=== PATIENT | male | born 1955 | race Caucasian/White ===

== ENCOUNTER 2016-12-11 11:04 | Inpatient (IN) | payer OTHER, MEDICAID ==
[~2016-12-11] VITALS: Ht 185.4 cm; Wt 132.8 kg
[~2016-12-11 11:04] MED LIST: ACET325C PO; AZU500 PO; GABA-504 PO; MAGN250T29 PO; METH16TA2 PO; MYCO500T3 PO; RITUX IV; [UNRECOGNIZED DRUG - CODE] PO
[2016-12-11 13:30] VITALS: BP 105/70; O2SAT 91
[2016-12-11] MEDS ORDERED: fentaNYL 2,500 mCg/250 mL Premix IV ONE (13:30)
[2016-12-11] MEDS ORDERED: fentaNYL 2,500 mCg/250 mL 2,500 MCG in IV Premix 1 EACH IV SCH (13:32)
[2016-12-11] MEDS ORDERED: Polyethylene Glycol (PEG) 17 Gm Powder PO PRN (13:55)
[2016-12-11] MEDS ORDERED: Senna-Docusate 8.6-50 mg Tablet PO PRN (13:55)
[2016-12-11] MEDS ORDERED: Ondansetron 2 mg/mL 2 mL Inj IVPUSH PRN (13:55)
[2016-12-11] MEDS ORDERED: Acetaminophen IV 1,000 MG in IV Premix 1 EACH IV PRN (13:55)
[2016-12-11] MEDS ORDERED: Alum-Mag Hydrox-Simeth 30 mL Suspension PO PRN (13:55)
--- NOTE | 2016-12-11 13:55 | PCM.CHPMED ---
Subjective Date of Service: Dec 11, 2016 Primary Physician: Admitting Physician: Rex Shepherd MD Primary Care Physician: Other,Physician Attending Physician: Rex Shepherd MD Admit Status: Admit to [facility] Team Chief Complaint: Chief Complaint: Pulmonary/Critical Care consultation Patient is a 61-year-old male with a medical history significant for rheumatoid arthritis with lung involvement presents, on immunosuppressive meds and COPD with bilateral lower lobe pneumonia, who initially sought care at [facility] for difficulty breathing and wheezes. History of Present Illness: Patient intubated and sedated, unable to conduct interview. According transfer notes, patient was admitted to [facility] on 12/10/2016 for severe shortness of breath and worse with any exertion. There was no reported fever, cough, sore throat, or congestion. No chest pain, no syncopal episode. Additionally, patient was found have an elevated white count 18, and CRx showed extensive infiltrate, thus, was admitted for acute respiratory failure secondary to pneumonia and was treated with oxygen, beta agonists, moderate steroids, and antibiotics Zosyn and Levaquin in the ICU [place]. Overnight, patient continued to decompensate requiring increasing oxygen and breathing on BiPAP. Patient had an ABG with a pH of 7.29, PCO2 of 52, PO2 of 84.1, and calculated HCO3 of 24.6 prior to elective intubation and transferred. Vitals significant for hypertension. EKG showed sinus tachycardia, QTC 409. CMP, remarkable for sodium 130. BUN/creatinine 12/0.7, GFR 114. 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 He was recently placed on significant immunal suppressive medications that includes rituximab with last infusion on (11/29), meyhylprednisolone 32mg daily, and mycophenolate 1000mg daily. Patient called in to Dr. Gomez on (12/04) with increasing generalized pain and on 12/08/2016 also reported that he has some difficulty in breathing with wheezing. Rheumatology office recommended the patient be seen at ER for evaluation. Pulmonary function test showed mild restrictive lung disease with decreased lung diffusion capacity in (11/10/2016). CT-chest (11/10) showed reticular interstitial thickening R>L lung, indicative of RA-ILD. Review of Systems: Unable to obtain due to patient's condition, intubated sedated. [facility] Past Medical History Per outpatient records Seropositive rheumatoid arthritis with lung involvement Osteoarthritis Neuropathy COPD Alcoholism since his 20s Past history of tobacco and marijuana smoke greater than 7 years Surgical History No documented history of surgery Home Medications Medication list per outpatient record Acetaminophen ER 650 extended release when necessary Gabapentin 400 mg 3 times a day Ketorolac 60mg/2ml every 7 days Museum 250 mg tablet daily Methylprednisolone 32 mg qd mycophenolate 100mg bid rituximab 1000mg, and then 1000mg 2wks later, IM [id number] Sulfasalazine 1000mg bid pyridoxine 100mg daily Allergies: Coded Allergies: No Known Allergies (Unverified , 11/29/16) Social History Alcoholic Drinks Per Day: Drinks 18beers/day for many years, last drink last week. Exam General: Oriented X3, Other (follows commands, writing requests on paper when sedation lightened, intermittent agitation) Eyes: PERRLA, EOMI, Scleral Anicteric Mouth: Other (intubated. ET tube 25.5 at the teeth. Oral Gastric Tube in place) Neck: Supple Chest & Lungs: Coarse breath sounds, Inspiratory wheezes Cardiovascular: Regular Rate/Rhythm, Normal S1, Normal S2, No Murmurs/Rubs/ Gallops Abdomen: Non-tender, Non-distended Genitourinary: Montgomery Present Extremities: No cyanosis/clubbing/edma bilat Neurological: Grossly Neurologically Intact, Cranial Nerves 2-12 Intact, Other (moving equally on all 4 extremity. RASS variable: +1 to -2) Assessment & Plan Assessment Patient is a 61-year-old male with MHx significant for rheumatoid arthritis with lung involvement presents, on immunosuppressive meds and COPD with bilateral lower lobe pneumonia, who initially sought care at [facility] for several days of difficulty breathing and wheezes. Thereafter, transferred to [facility] due to increasing hypoxia and further workup for pneumonia. Based on 2VW CRx comparison (10/14) and (12/10), patient has increasing patchy infiltrate in the Left lower lobe. The acute nature suggestive of infection. Unknown however, is whether this represent viral, bacterial, or fungal. Patient was not on any prophylaxis while on several DMARD. A bronchoscopy done at bedside today with BAL and analysis should help direct treatment. Meanwhile, patient is placed on abx with broad coverage that includes typical, atypicals, pseudomonas, MRSA, and fungal while providing vent support. High O2 needs likely 2nd to impaired gas exchanged due to RA-ILD. For this very reason, goal is to keep patient dry. MAP maintaining >65. Can bolus 250cc or 500cc as needed. Problem List/Plan # Sepsis 2nd to pneumonia on vent support for respiratory failure in the setting of RA-ILD and COPD -Arterial line placement for hemodynamic monitoring # Hypoxic Hypercapnic respiratory failure -Cont ventilation with current setting -ABG in the AM # Pneumonia -labs blood cultures and antigens/antibodies ordered -Cont Zosyn, Levaquin, Bactrim, and Cresemba -Awaits BAL analysis # RA- ILD -Restart steroids: Solu-Medrol 40mg daily to prevent addisonian crisis # COPD -Duoneb Q4H Total time spent 2hrs. Pulmonary/Critical Care Attending 61yo man with underlying mixed picture of pulmonary fibrosis with basilar honeycombing and COPD whose recent respiratory complaints were felt to be due to RA-ILD so his DMARD and immunosuppressive regimen was augmented was admitted with a progressive immunosuppressed pneumonia to [facility]. Overnight, his oxygenation worsened and arrangements were made to transfer him here to [facility]. Given his tenuous respiratory status, he was electively intubated for transport safety. He is now admitted to the ICU here. Despite his marked LLL>RLL infiltrates superimposed on his baseline pulmonary fibrosis (R more affected than L), we have been able to maintain adequate oxygenation with standard vent settings. Given his sufficient oxygenation, I feel that we can safely proceed with a diagnostic BAL to work up his immunosuppressed pneumonia. He has required aggressive sedation for comfort and vent synchrony on high dose propofol and increasing doses of fentanyl, but we may need to add dexmedetomidine if his BP continues to be marginal. We will cover his immunosuppressed pneumonia very broadly including piperacillin -tazobactam and levofloxacin, trimethoprim-sulfamethoxazole for PJP (and MRSA), and isavuconazole. We will treat with PJP dose methylprednisolone as well. BAL today will be imperative to direct our therapy. We will hold all of his RA DMARDs and NSAIDs in the face of his severe immunosuppression. Given his high dose glucocorticoid dosing over the past several months, he is profoundly adrenally suppressed and will need stress dose glucocorticoid replacement. The high dose methylprednisolone will more than suffice. We will follow up his BAL micro studies. I have met with the patient's and [id number] at the bedside to update them and answer their insightful questions. . Problems: Attending Statement The patient was seen and examined together with Dr. Ansari on 12/12/2016, we have formulated the above care plan, and I have added additional information to the note above. Mark Ansari DO Dec 11, 2016 13:55 Rex Lemos MD Dec 14, 2016 15:09
[2016-12-11 14:00] VITALS: BP 105/72; PULSE 105; RESP 24; O2SAT 92
[2016-12-11] MEDS ORDERED: ISAVUCONAZONIUM SULFATE IV SCH (14:20)
[2016-12-11] MEDS ORDERED: DEXTROSE 5% IV SCH (14:20)
[2016-12-11 14:41] LABS: BASOPHILS % (AUTO) 0.3 % (0-3); EOSINOPHILS % (AUTO) 0 % (0-5); MONOCYTES % (AUTO) 5.9 % (4-12); Mean Corpuscular Hemoglobin 32.8 pg (27.0-35.0); Mean Corpuscular Volume 98.5 fL (81-100); NEUTROPHILS % (AUTO) 90.1 % (40-74); Platelet Count 306 bil/L (150-400)
[2016-12-11] MEDS: Propofol Inj 1,000,000 MCG in IV Premix 1 EACH IV PRN ×3 (14:43→23:34)
--- NOTE | 2016-12-11 14:57 | DRSVH ---
PROCEDURE: X-RAY CHEST ONE VIEW, PORTABLE ([id number]) INDICATIONS: PNA TECHNIQUE: One view of the chest was acquired. COMPARISON: Outside Film, CR, XR CHEST 2VW, 12/10/2016, 10:00. FINDINGS: Surgical changes and devices: ETT present it projects 6.4 cm above the daniela and a nasogastric tube tip traverses the GE junction. Lungs and pleura: Diffuse, widespread bilateral pulmonary interstitial and air space opacities are p resent which has increased from prior examination. Trace pleural effusions likely present. No pneum othorax. Mediastinum: Mediastinal contours appear normal. Heart size is normal. Bones and chest wall: No suspicious bony lesions. Overlying soft tissues appear unremarkable. IMPRESSION: 1. Support lines and tubes as above. 2. Increasing pulmonary edema and/or bilateral inflammatory process. Recommend clinical correlation and followup. Dictated by: Fernando STRE[address] Interpreted: Mackenzie Yeboah MD on 12/11/2016 at 14:55 Transcribed by: JORGE on 12/11/2016 at 14:57 Approved by: Mackenzie Yeboah M.D. on 12/13/2016 at 9:59
[2016-12-11 15:03] LABS: Magnesium 2.1 mg/dL (1.6-2.6); Phosphorus 5.2 mg/dL (2.5-4.9)
--- NOTE | 2016-12-11 15:41 | CONS ---
[address] [address] CONSULTATION REPORT PATIENT: DEAN SANCHEZ : 1955 MR#: [id number] ADMIT: 12/11/2016 JOB ID: [id number] DATE OF SERVICE: 12/11/2016 INFECTIOUS DISEASE CONSULTATION: I thank Dr. Russ Fair for this timely consultation. REASON FOR CONSULT: Respiratory failure secondary to bilateral pulmonary infiltrates in an immunosuppressed host. HISTORY OF PRESENT ILLNESS: I was contacted by telephone about this patient one or two days ago when he was admitted to [facility]. They were attempting to transfer him to this hospital but apparently bed availability did not allow that, and he was transferred just minutes ago by [employer] helicopter from [facility] in [place], [place] to this facility. I reviewed all the material available from the [facility] admission, as well as a CT scan from a prior evaluation at the center, and also spoken personally to the Lab and Micro Departments in [place] to help prepare this consult. Based on the history available in the chart, the patient was diagnosed within the last year or so with rheumatoid arthritis, as well as rheumatoid lung. A CT scan done exactly one year ago shows bilateral fibrotic, honeycombing type infiltrates much worse on the right than the left, and I personally reviewed that scan. He was also evaluated with some PFT at this location. The patient has been on escalating treatment for his rheumatoid arthritis and at baseline, is on chronic steroids and mycophenolate, apparently. Recently, about 10 days ago, he received his first infusion of rituximab through the Rheumatology Clinic here at [facility]. The patient then is reported to have developed increasing shortness of breath, which started on or about the 04 of December. This was progressive on top of his already baseline dyspnea to the point he could do very little. In addition to the profound and worsening shortness of breath, there was a report that he had fatigue and sweats, though not overt fever and chills. He presented to [facility] and was admitted 1 to 1-1/2 days ago with the worsening respiratory failure. Chest x-ray there showed bilateral infiltrates, and he was started on aggressive therapy for pneumonia with reportedly Zosyn and levofloxacin. They contacted me by phone to see if this was adequate therapy, and I recommended that he be transferred to a facility with more capacity to handle such a complex patient and also, I recommended that they add treatment for MRSA while we await appropriate cultures and studies. At arrival here, he was reportedly receiving as Zyvox, Zosyn and levofloxacin. During the course of his very short stay at [facility], he required intubation and sedation and for that reason, I can get minimal history from the patient. Right now, though, his sedation is not complete, and he is awake and appears quite terrified. He is able to answer a few yes and no questions and states he has air hunger primarily. He was also able to tell me a few pertinent facts but basically, the history is limited to what we can get from the chart in this intubated, anxious and critically ill gentleman. PAST MEDICAL HISTORY: 1. Rheumatoid arthritis diagnosed last year. 2. Rheumatoid lung. 3. Hypertension. SOCIAL HISTORY: Notes from [facility] indicate that he quit smoking 10 years ago. They also suggest he quit drinking alcohol very recently. When I asked of him if he was a heavy drinker, he appeared to nod yes but then when I asked him again he appeared to shake his head no, so I do not know how much he consumed. He is also , and his apparently has recently had a renal transplant, though she is not available and we cannot question her at this time. FAMILY HISTORY: I asked the patient if there is any history in his family, primary first or second-degree relatives, of TB, and he shook his head no. Again, he is critically ill, scared and on the ventilator, so I am not sure how reliable that data is. REVIEW OF SYSTEMS: Basically impossible, given the degree of discomfort he is in and his partial sedation. PHYSICAL EXAMINATION: Reveals a critically ill gentleman lying supine in his hospital bed. He is quite flushed in the face and is thrashing about some on the ventilator and is obviously very anxious. Efforts were made to reassure him. Vital signs include a temperature 36.5, his blood pressure 110/70. He is on 70% FiO2 and 5 of PEEP, and saturating only 91%. Pulse 115. There was no evidence for head trauma or temporal wasting. His eyes are without conjunctivitis or scleral icterus. Extraocular movements are definitely intact. His nose appears normal. His oral cavity, he now has an oral endotracheal tube and an orogastric tube present. His neck is supple and without any adenopathy. I see very little of the teeth but what I see appears to show reasonably good dentition. His lungs are notable for crackles bilaterally, quite extensive, especially on the right. Cardiac tones are tachycardic but regular rate and rhythm. I do not appreciate a murmur but he is going very fast. The abdomen is soft and nontender without organomegaly. Penis and scrotum appear normal. Montgomery catheter is present. There is no inguinal or cervical adenopathy. No skin rash is noted. There is no peripheral edema. No evidence of synovitis at this point, and the neuro exam is basically impossible, though the patient is thrashing around a bit and seems to move all four extremities. LABORATORIES: There are no labs available yet. The patient has just arrived, and the residents and I have discussed the appropriate labs, and they have just been ordered. I have reviewed the labs from [facility], and the highlights would be white count of 18,000 in a patient on chronic steroids. Platelet count is reasonable. Creatinine 0.7. LFT were also relatively normal. The blood cultures at [facility] are negative at one day only. In addition, they have a sputum that shows a quite heavy poly predominance. It has a few gram-positives, a few Gram negatives and a few hyphal elements. A MRSA screen by PCR at [facility] was negative and otherwise, we have no lab work at this point. IMAGING: We have no current imaging. X-ray from [facility] is said to show severe bilateral infiltrates but we cannot see that on the [facility], so we cannot review it. We can review a CT here from one month ago which shows fibrotic-appearing lungs, especially on the right. IMPRESSION: This is an extremely unfortunate gentleman who was recently diagnosed with rheumatoid arthritis and rheumatoid lung. He has been on escalating levels of immunosuppression including the recent addition of rituximab but apparently has had progressive shortness of breath, which is much worse in the last few days. Whether this dramatic shortness of breath in the last few days represents infection or progression of rheumatoid lung is unclear but given the severity and acuity of it, I think we must proceed along the lines that this could be infection. If so, the differential diagnosis of infection is extremely broad and, of course, includes common bacteria, as well as some unusual ones including nocardia, stenotrophomonas, acinetobacter and others. The possibility of a mycobacterial infection seems remote, given the speed with which this progressed but, of course, that is not impossible either. In terms of fungal possibilities, we must be concerned about aspergillus, cryptococcal infection, or even mucormycosis or pseudallescheria. Viral possibilities exist here include our common respiratory viruses, as well as even conceivably cytomegalovirus. We are not clear but the patient seems to indicate he has not lived outside of the [place]. So, esoteric possibilities like paragonimiasis are certainly unlikely. Pneumocystis is an ever present risk in a patient on this immunosuppressive regimen as well. RECOMMENDATIONS: 1. I have discussed the diagnostic recommendations in detail with the house staff. They will include sputum, Gram stain and culture, urine antigens for pneumococcus and legionella, respiratory viral PCR panel, cryptococcal antigen in serum, Fungitell and galactomannan, as well as aspergillus antibodies, QuantiFERON Gold and fungal blood cultures. In addition, we obviously need a stat chest x-ray. 2. A CT scan without contrast of the lungs would be invaluable. 3. This patient may require bronchoscopy fairly soon to help us get some better samples, and this should be sent for the full array of standard studies on the bronch. 4. Recommendations for antibiotics at this point would include high-dose Zosyn plus IV levofloxacin. In addition, I would use Septra IV in a dose of 5 mg/kg q.8 h. That should be dosed according to the trimethoprim component. The high-dose Bactrim will give coverage for nocardia, stenotrophomonas, pneumocystis and a few other unlikely organisms. 5. In addition to all of this, I would add Cresemba in a dose of 372 mg q.8 h. x6 doses, to be followed by 372 mg once a day commencing on the third day. 6. I will be out of town the next five days starting this evening and continuing through the morning of December 17. I can be reached by email or text about this patient as needed.
--- NOTE | 2016-12-11 15:46 | ABG ---
DateTimeAnalyzed 15:37:00 -_ pH ____7.353 - 7.350 7.450 pCO2 ___45.4__ -mmHg 35.0 45.0 pO2 ___72.9__ -mmHg 69.0 116 HCO3- ___24.6__ -mmol/L 22.0 26.0 ABE ___-0.6__ -mmol/L -2.0 2.0 tHb ___11.9__ -g/dL O2Hb ___92.4__ -% COHb ____1.4__ -% MetHb ____0.8__ -% sO2 ___94.5__ -% 25.0 FIO2 ___70.0__ -% PEEP ____5.0__ -cmH2O Vt __450.0__ -L Drawn By NB - Date/Time Notified____ 15:46:00 -_ Spontaneous_RR ___24.0__ -b/min Oxygen Device 1 VENTILATOR - Notified By nb - Notified Whom _Dr Ansari - B 759 -mmHg tO2 ___15.5__ -Vol% Cristiano test N/A -
[2016-12-11] MEDS: DEXTROSE 5% IV SCH ×5 (15:57→23:52)
[2016-12-11] MEDS: PIPERACILLIN TAZO IV SCH ×2 (15:57→23:52)
[2016-12-11] MEDS ORDERED: Lidocaine PF 2% 10 mL Inj ONE (16:01)
[2016-12-11] MEDS ORDERED: Lidocaine Topical 2% 30 mL Jelly ONE (16:02)
[2016-12-11] MEDS: TRIMETHOPRIM SULFA IV SCH (16:15)
[2016-12-11] MEDS: 0.9% Sodium Chloride 1,000 ML IV SCH (16:19)
[2016-12-11] MEDS: Heparin 5,000 Unit/mL Inj SUBQ SCH (16:30)
[2016-12-11] MEDS: ISAVUCONAZONIUM SULFATE IV SCH ×2 (16:30→20:28)
--- NOTE | 2016-12-11 16:33 | PCM.HPMED ---
Subjective Date of Service Dec 11, 2016 Primary Provider: Admitting Physician: Rex Shepherd MD Primary Care Physician: Other,Physician Attending Physician: Rex Shepherd MD Chief Complaint: Shortness of breath History of Present Illness: Patient is a 61-year-old male with hypertension, rheumatoid arthritis and rheumatoid lung presenting as a transfer from [facility] for worsening shortness of breath. Prior to arrival the patient was sedated and intubated. As a result a history is not obtainable but based on medical records from [facility] and his significant other the patient has had a recent history of difficulty breathing related to his rheumatoid lung. Approximately 4 days prior to his admission at [facility], the patient experienced a decline in his breathing with minimal activity, particularly walking to-and-fro the restroom. Patient was reportedly unable to recover after five minutes rest, which prompted him to visit [facility] on 12/10/2016. There the patient reported fatigue and sweats, but denied any fever or chills. Chest x-ray at [facility] showed bilateral infiltrates suggestive of pneumonia and the patient was started on Zosyn and levofloxacin. The patient's breathing continued to decline prompting intubation and placement on ventilator. Patient is on chronic steroids and mycophenolate for his rheumatoid disease. He was reportedly diagnosed in August of this year and since that time has had difficulties with breathing. Patient reportedly received his first infusion of rituximab via [facility] Rheumatology about 10 days ago. Review of Systems: Unable to obtain. Patient is sedated and on mechanical ventilator. Allergies Coded Allergies: No Known Allergies (Unverified , 11/29/16) Home Medications Per transfer documentation: Gabapentin 900mg TID Methylprednisolone 16mg BID Mycophenolate 500mg QID Sulfasalazine 500mg BID PMH Rheumatoid arthritis Rheumatoid lung disease Hypertension Chronic back pain Osteoarthritis . Surgical History Carpal tunnel surgery Family History Unable to obtain as patient is sedated and intubated. Social History Occupation: Builder Hx Tobacco Use: Yes Smoking Status: Former Smoker (Quit about 10 years ago) Exam Vital Signs Vital Sign - Last Date Time Temp Pulse Resp B/P Pulse Ox O2 Delivery O2 Flow Rate FiO2 12/11/16 13:30 122 105/70 91 70 Exam General: Patient is sedated and on the ventilator. Well-developed, well- nourished. HEENT: Normocephalic, atraumatic. External ears without defect. Endotracheal tube present. Neck: Supple. Cardiovascular: Regular rate and rhythm with no obvious murmurs but difficult to ascertain due to coarse lung sounds. Pulmonary: Coarse bilaterally. Abdomen: Bowel tones present. Soft, nontender, nondistended. Extremities: No clubbing, cyanosis, edema, or lymphadenopathy appreciated. Skin: Normal temperature, turgor, and texture; no rash, ulcers, or subcutaneous nodules appreciated. Neurological: Sedated. Lab and Diagnostics Result Diagram: 12/11/16 1415 12/11/16 1415 Assessment & Plan Patient is a 61-year-old male with hypertension, rheumatoid arthritis and rheumatoid lung presenting as a transfer from [facility] for worsening shortness of breath and subsequently sedated and intubated. He is admitted and being treated for suspected pneumonia. Hospital day #1. 1. Acute sepsis. Present on admission. Active -Meets sepsis criteria with WBC, tachycardia with likely respiratory source of infection -Pending studies: Blood cultures, sputum cultures -Follow clinically -Repeat CBC in AM 2. Acute hypoxemic respiratory failure. Present on admission. Active -Patient's oxygen saturation reportedly in the 70s at [facility] with eventual intubation -Likely secondary to pneumonia or progressive rheumatoid lung disease -Pulmonary/Critical Care consultation. Recommendations per Pulm/CC appreciated -Bronchoscopy anticipated today 3. Bilateral pneumonia, acute. Present on admission. Active -Chest x-ray with diffuse widespread bilateral pulmonary interstitial and air space opacities -Elevated white count and procalcitonin -Pending studies: Legionella ur ag, Strep pneumo ur ag, MRSA screen, Respiratory viral PCR, sputum culture, Fungitell, Crytpococcal ag, Aspergillus ab, Quantiferon -Antibiotics per Infectious Disease - recommendations per ID appreciated. Antibiotics: Cresemba, Zosyn, Bactrim and levofloxacin -Repeat procalcitonin in AM 4. Hyponatremia, acute. Present on admission. Active -Likely secondary to insensible losses from respiratory distress -IV fluids with NS -Follow with CMP 5. Rheumatoid lung, chronic. Present on admission. Active -Patient is followed by [facility] Rheumatology and current regiment includes methylprednisolone, mycophenolate and sulfasalazine -Hold above-mentioned regimen -Stress dose steroids with Solu-Medrol 40mg IV daily 6. COPD. Present on admission. Presumed stable -Patient is not on any COPD medications outpatient -DuoNeb 7. Chronic hypertension. Present on admission. Presumed stable -Not on any antihypertensive -Currently normotensive -Follow clinically 8. Hyperglycemia. Acuity unknown. Present on admission. Active -Possibly stress-related and chronic steroid use -HbA1c pending -Bedside glucose checks. Correctional insulin Lispro low algorithm Patient Status: Patient is admitted under inpatient status with expected length of stay greater than 2 midnights due to severity of presenting symptoms, risk of adverse event, and complexity of treatment plan. Pain Evaluation: Adequate Pain Control GI Prophylaxis: H2 henny VTE Prophylaxis: Sub-Q Heparin (Unfractionated) Resuscitation Status: CPR: Attempt Resuscitation Attending Statement The patient was seen and examined together with Dr. Dumont on 12/11/2016 and I agree with the history, exam and plan as outlined in the note above. . Nate Dumont DO Dec 11, 2016 16:33 Rex Shepherd MD Dec 11, 2016 18:33
[2016-12-11] MEDS ORDERED: GABA-504 PO (16:44)
[2016-12-11] MEDS ORDERED: CHOL10008 PO (16:48)
[2016-12-11] MEDS ORDERED: PRE10 PO (16:48)
[2016-12-11] MEDS ORDERED: IBUP200C PO (16:50)
[2016-12-11] MEDS ORDERED: METH16TA2 PO (17:06)
[2016-12-11] MEDS: Insulin LISPRO 300 Unit/3 mL Inj SUBQ SCH ×2 (17:30→22:00)
--- NOTE | 2016-12-11 17:35 | NUR ---
Admit Note.. Pt received as direct admit from [facility] via air lift. Pt has been intubated at [facility]. Arrived in stable condition but was awakening and requiring sedation. Started on propofol and fentanyl gtts and pt has required increase titration of gtts with boluses due to agitation. Has been nodding appropropriately when awake. Significant other arrived and updated on status. Pt had a bronchoscopy done at the bedside per Dr Murray and felicity procedure well. Is currently having an arterial line placement done at the bedside.
[2016-12-11] MEDS ORDERED: Glucose 40% Oral Gel 15 Gm Tube PO PRN (17:40)
--- NOTE | 2016-12-11 17:54 | PCM.PROC ---
Procedure Note Date of Service: Dec 11, 2016 Pre Procedure Diagnosis: Sepsis, pneumonia Post Procedure Diagnosis: Sepsis, pneumonia Procedure: Arterial Line Provider and Motor Winder: Sera Young RN Indication for Procedure: Hemodynamic monitoring Arterial blood gas Findings: Radial pulse felt Distal radial artery visualized with ultrasound Procedural Analgesia: 1% lidocaine with with bicarb Procedure Details: A time-out was completed verifying correct patient, procedure, site, positioning , and special equipment if applicable. Allens test was performed to ensure adequate perfusion. The patients <RIGHT> wrist was prepped and draped in sterile fashion. 1% Lidocaine with bicarb was used to anesthetize the area. A 18G Arrow arterial line was introduced into the <RADIAL ARTERY>. The catheter was threaded over the guide wire and the needle was removed with appropriate pulsatile blood return. The catheter was then sutured in place to the skin and a sterile dressing applied. Perfusion to the extremity distal to the point of catheter insertion was checked and found to be adequate. <Attending Rex Swartz> was present for the entire procedure. Estimated Blood Loss: <5cc> The patient tolerated the procedure well and there were no complications. Post Procedure Plan: Keep Dressing dry Daily monitor and dressing changes as need for infection Mark Ansari DO Dec 11, 2016 17:54
--- NOTE | 2016-12-11 18:02 | PCM.ENDPOS ---
Procedure Date of Service: Dec 11, 2016 Physician Rex Lemos MD Indication for Procedure Immunosuppressed Pneumonia, Acute Hypoxic Respiratory Failure, Rheumatoid Arthritis Pre Procedure Diagnosis: Immunosuppressed Pneumonia, Acute Hypoxic Respiratory Failure, Rheumatoid Arthritis Post Procedure Dx & Findings: Immunosuppressed Pneumonia, Acute Hypoxic Respiratory Failure, Rheumatoid Arthritis Procedure Procedure: After time out and verification that the patient was deeply sedated with continuous infusions of fentanyl and propofol and saturating well on FiO2 1.0, he was given 4mL of 2% lidocaine through the adapter on his ETT and ventilator circuit. Thereafter, the bronchoscope was advanced through the adapter and ETT into the tracheobronchial tree. His proximal airways were examined bilaterally. BAL was performed in the basilar segments of the Left Lower lobe. 60mL of sterile saline was gently instilled and then gentle aspirated using manual suction and the 60mLL syringe. There was a very faint pink, heme tinge to the aspirated fluid but no progression to bloody BAL consistent with an alveolar hemorrhage syndrome. Thereafter, an additional 30mL of saline was instilled and collected with suction to a total of 28mL. Findings: Normal tracheobronchial anatomy, mild diffuse bronchial erythema and edema with mild friability and bruising, small to moderate amounts of clear- white frothy secretions which easily suctioned clear, occasional heme-tinged secretions found in both lower lobe bronchi, heme-tinged BAL with rare, small mucus plugs. The patient tolerated the procedure well with SpO2 micheal of 0.93 on FiO2 1.0. His SpO2 was 0.96 at the end of the procedure. Presedation Assessment Risks and Benefits Informed consent was obtained from the patient's after all risks and benefits including but not limited to drug reaction, infection, pain, bleeding, perforation, as well as alternatives were discussed. Patient monitoring Continuous pulse oximetry, cardiac monitoring, blood pressure monitoring, IV access, and mechanical ventilation on FiO2 1.0. Periprocedural Lidocaine: Lidocaine 2% Ampule Procedure Medications continuous infusions of fentanyl and propofol Complications There were no periprocedural complications identified. Post Procedure Plan Post Procedure Recommendations Follow-up care will depend on the findings of the micro studies and cytopathologly on the BAL sent to the lab. copies to: Rex Shepherd MD, Michael F MD Dec 11, 2016 18:02
[2016-12-11 18:23] VITALS: BP 112/68; O2SAT 91
[2016-12-11] MEDS: Albuterol-Ipratropium 3 mL Inhalation Solution NEB SCH ×2 (18:23→19:48)
[2016-12-11 18:47] LABS: BFWBC 58 /mm3; MONOCYTES,BODY FLUID 9 %; OTHER CELLS,BODY FLUID 37
[2016-12-11 19:48] VITALS: BP 129/61; O2SAT 97
[2016-12-11 20:00] VITALS: BP 138/59; PULSE 110; RESP 20; O2SAT 96
[2016-12-11] MEDS: Famotidine Inj 50 ML IV SCH (20:23)
[2016-12-12] VITALS (12 sets, daily range): BP systolic 84–154; BP diastolic 38–68; PULSE 82–152; RESP 20–28; O2SAT 85–95
[2016-12-12] MEDS: DEXTROSE 5% IV SCH ×8 (00:16→22:29)
[2016-12-12] MEDS: TRIMETHOPRIM SULFA IV SCH ×3 (00:16→17:05)
[2016-12-12] MEDS: Albuterol-Ipratropium 3 mL Inhalation Solution NEB SCH ×6 (00:28→20:04)
[2016-12-12] MEDS: Heparin 5,000 Unit/mL Inj SUBQ SCH ×3 (00:53→17:43)
--- NOTE | 2016-12-12 01:39 | ABG ---
DateTimeAnalyzed 01:36:00 -_ pH ____7.350 - 7.350 7.450 pCO2 ___42.7__ -mmHg 35.0 45.0 pO2 ___80.0__ -mmHg 69.0 116 HCO3- ___22.9__ -mmol/L 22.0 26.0 ABE ___-2.0__ -mmol/L -2.0 2.0 tHb ___10.4__ -g/dL O2Hb ___93.4__ -% COHb ____1.3__ -% MetHb ____1.1__ -% sO2 ___95.7__ -% 25.0 FIO2 ___90.0__ -% PEEP ____5.0__ -cmH2O Set_RR ___20.0__ -b/min Vt __450.0__ -L Drawn By MK - Date/Time Notified____ 01:39:00 -_ Spontaneous_RR ___20.0__ -b/min Oxygen Device 1 VENTILATOR - B 763 -mmHg tO2 ___13.8__ -Vol% Cristiano test N/A -
[2016-12-12] MEDS: Propofol Inj 1,000,000 MCG in IV Premix 1 EACH IV PRN ×3 (02:06→21:54)
[2016-12-12] MEDS: 0.9% Sodium Chloride 1,000 ML IV SCH ×2 (03:25→15:46)
[2016-12-12] MEDS ORDERED: Furosemide 10 mg/mL 4 mL Inj IVPUSH ONE (04:00)
[2016-12-12] MEDS ORDERED: Cisatracurium 2,000 mCg/mL 10 mL Inj ONE ×2 (04:10→05:19)
--- NOTE | 2016-12-12 04:19 | ABG ---
DateTimeAnalyzed 04:14:06 -_ pH ____7.339 - pCO2 ___48.3__ -mmHg pO2 ___50.8__ -mmHg HCO3- ___26.0__ -mmol/L ABE ____0.1__ -mmol/L tHb ___11.7__ -g/dL O2Hb ___81.8__ -% COHb ____1.9__ -% MetHb ____0.3__ -% sO2 ___83.6__ -% FIO2 __100.0__ -% PEEP ___11.0__ -cmH2O Set_RR 18 -b/min Vt __450.0__ -L Drawn By MK - Date/Time Notified____ 04:18:00 -_ Spontaneous_RR 25 -b/min Oxygen Device 1 VENTILATOR - Notified By MK - Notified Whom sullenburger - B 762 -mmHg K+ ____3.9__ -mmol/L tO2 ___13.5__ -Vol% Cristiano test N/A -
[2016-12-12 04:29] LABS: BASOPHILS % (AUTO) 0.1 % (0-3); EOSINOPHILS % (AUTO) 0.2 % (0-5); MONOCYTES % (AUTO) 4.3 % (4-12); Mean Corpuscular Hemoglobin 32.6 pg (27.0-35.0); Mean Corpuscular Volume 97.8 fL (81-100); Platelet Count 261 bil/L (150-400)
[2016-12-12] MEDS ORDERED: Norepinephrine 8,000 mCg/250 mL NS Premix IV ONE (04:31)
[2016-12-12] MEDS: ISAVUCONAZONIUM SULFATE IV SCH ×3 (05:00→22:29)
[2016-12-12] MEDS ORDERED: Albumin 25% 100 ML IV ONE (05:03)
[2016-12-12] MEDS ORDERED: Albumin 25% 25 GM in IV Premix 1 EACH IV ONE (05:05)
[2016-12-12] MEDS: Dexmedetomidine 400 mCg/100 mL NS Premix IV SCH ×3 (05:15→08:20)
[2016-12-12] MEDS: Norepineph 8,000 mCg/250 mL NS 8,000 MCG in IV Premix 1 EACH IV SCH ×13 (05:16→22:44)
[2016-12-12] MEDS ORDERED: Cisatracurium 2,000 mCg/mL 10 mL Inj IV ONE (05:25)
--- NOTE | 2016-12-12 05:37 | ABG ---
DateTimeAnalyzed 05:34:00 -_ pH ____7.255 - 7.350 7.450 pCO2 ___58.6__ -mmHg 35.0 45.0 pO2 ___46.7__ -mmHg 69.0 116 HCO3- ___25.1__ -mmol/L 22.0 26.0 ABE ___-2.4__ -mmol/L -2.0 2.0 tHb ___12.0__ -g/dL O2Hb ___73.5__ -% COHb ____1.0__ -% MetHb ____1.4__ -% sO2 ___75.3__ -% 25.0 FIO2 __100.0__ -% PEEP ___11.0__ -cmH2O Set_RR ___18.0__ -b/min Vt __450.0__ -L Drawn By MK - Date/Time Notified____ 05:37:00 -_ Spontaneous_RR ___30.0__ -b/min Oxygen Device 1 VENTILATOR - Notified By MK - Notified Whom _Dr fiorella - B 764 -mmHg tO2 ___12.4__ -Vol% Cristiano test N/A -
--- NOTE | 2016-12-12 05:52 | NUR ---
BI level vent settings P high 32 T high 2.3 peep 0 t peep 0.4 02 conn 100% t insp 0.05
--- NOTE | 2016-12-12 06:21 | NUR ---
Cardiac/Resp/GI Patient guarded this shift, restless at the start of the shift, sedation increased, max dose Fentanyl and Propofol, MD notified and Ativan ordered 4mg PRN x2 doses, Pulmonology admissions counselor notified, at 0300, 0340, 0350 to update on patient condition, MD ordered vent changes, Precedex, Lasix and and stated he will come into see and assess patient, Nimbex ordered, patient 02 Sats 60-80% this AM on 100% FIO2 and BILevel P32, Levophed started and at 0.5mcg/kg/min, Nimbex gtt started at 0.5mck/kg/min, patient turned on right side and saw slight improvement, MD in room, will continue to monitor, orders to hold Antibiotics at this time. Addendum: 12/12/16 at 0643 by ANTONIO FORMAN RN Amended: Links added.
[2016-12-12 06:28] LABS: Magnesium 1.9 mg/dL (1.6-2.6); Phosphorus 4.2 mg/dL (2.5-4.9)
[2016-12-12] MEDS ORDERED: Cisatracurium Inj 200,000 MCG in 0.9% Sodium Chloride 100 ML, Pharmacy To Mix 1 EA IV ONE (06:35)
--- NOTE | 2016-12-12 07:01 | PCM.PNMED ---
Subjective Date of Service Dec 12, 2016 Subjective called to bedside early this AM for worsening oxygenation and hypotension overnight despite aggressive interventions by Dr Mondragon and ICU staff. AM pCXR demonstrates worsening airspace filling infiltrates bilaterally (Left worse than Right). His PEEP had been increased without improvement in his SpO2. Pt requiring increased sedation for agitation and vent dyssynchrony, including several boluses of lorazepam which helped with sedation but worsened his hypotension. He did respond to initiation of norepinephrine with improved BP but he continued to have significant variation in his arterial pressure waveform with his labored respirations. His BP waveform did stabilize with a bolus of 25g IV albumin 25%. Despite deep sedation, he continued to have significant labored respirations with forced exhalation with clear air trapping and autoPEEP on the ventilator. After further titration of his sedation, he was given a bolus dose of cisatracurium with significant improvement in his respiratory efforts/vent synchrony. Unfortunately, this did not improve his oxygenation (SpO2 remained in the 70s). He was then placed on BiLevel/APRV settings to improve his mean airway pressure and facilitate alveolar recruitment. In the face of his worsening pulmonary infiltrates and oxygenation, we also gave him a bolus dose of furosemide with hopes of decreasing his lung water content. His oxygenation remains poor with PaO2 trending down over the past few hours, even as his norepinephrine requirement has resolved and he has reasonable pH. I have spoken with the pt's , Marbella, by phone to apprise her of the overnight developments and his critical status and poor prognosis without a significant improvement in the next several hours. Exam Vital Signs Vital Sign - Last Date Time Temp Pulse Resp B/P Pulse Ox O2 Delivery O2 Flow Rate FiO2 12/12/16 06:26 Mechanical Ventilator 100 12/12/16 04:25 117 84/38 85 12/12/16 03:30 36.9 28 Intake and Output 12/11/16 12/11/16 12/12/16 Cumulative From/Thru 15:00 23:00 07:00 12/11/16 19:36 - 12/12/16 06:25 Intake Total 1002 ml 1444 ml 2446 ml Output Total 300 ml 950 ml 1250 ml Balance 702 ml 494 ml 1196 ml Intake IV Total 1002 ml 1444 ml 2446 ml Output Urine Total 300 ml 950 ml 1250 ml # Bowel Movements 0 0 Exam deeply sedated but significant labored respirations on Volume Control ventilation with active exhalation and strain. tachycardic with hyperdynamic heart tones, weak but symmetric peripheral pulses very coarse mechanical breath sounds with rhonchi throughout L chest and a Right base oral ETT and GT R radial art line, PIVs bilat UE, juan Lab and Diagnostics DateTimeAnalyzed 05:34:00 -_ pH ____7.255 - 7.350 7.450 pCO2 ___58.6__ -mmHg 35.0 45.0 pO2 ___46.7__ -mmHg 69.0 116 HCO3- ___25.1__ -mmol/L 22.0 26.0 ABE ___-2.4__ -mmol/L -2.0 2.0 tHb ___12.0__ -g/dL O2Hb ___73.5__ -% COHb ____1.0__ -% MetHb ____1.4__ -% sO2 ___75.3__ -% 25.0 FIO2 __100.0__ -% PEEP ___11.0__ -cmH2O Set_RR ___18.0__ -b/min Vt __450.0__ -L DateTimeAnalyzed 04:14:06 -_ pH ____7.339 - pCO2 ___48.3__ -mmHg pO2 ___50.8__ -mmHg HCO3- ___26.0__ -mmol/L ABE ____0.1__ -mmol/L tHb ___11.7__ -g/dL O2Hb ___81.8__ -% COHb ____1.9__ -% MetHb ____0.3__ -% sO2 ___83.6__ -% FIO2 __100.0__ -% PEEP ___11.0__ -cmH2O Set_RR 18 -b/min Vt __450.0__ -L DateTimeAnalyzed 01:36:00 -_ pH ____7.350 - 7.350 7.450 pCO2 ___42.7__ -mmHg 35.0 45.0 pO2 ___80.0__ -mmHg 69.0 116 HCO3- ___22.9__ -mmol/L 22.0 26.0 ABE ___-2.0__ -mmol/L -2.0 2.0 tHb ___10.4__ -g/dL O2Hb ___93.4__ -% COHb ____1.3__ -% MetHb ____1.1__ -% sO2 ___95.7__ -% 25.0 FIO2 ___90.0__ -% PEEP ____5.0__ -cmH2O Set_RR ___20.0__ -b/min Vt __450.0__ -L DateTimeAnalyzed 15:37:00 -_ pH ____7.353 - 7.350 7.450 pCO2 ___45.4__ -mmHg 35.0 45.0 pO2 ___72.9__ -mmHg 69.0 116 HCO3- ___24.6__ -mmol/L 22.0 26.0 ABE ___-0.6__ -mmol/L -2.0 2.0 tHb ___11.9__ -g/dL O2Hb ___92.4__ -% COHb ____1.4__ -% MetHb ____0.8__ -% sO2 ___94.5__ -% 25.0 FIO2 ___70.0__ -% PEEP ____5.0__ -cmH2O Vt __450.0__ -L Result Diagram: 12/12/160 12/12/160 Assessment & Plan 61yo man with underlying moderate pulmonary fibrosis with some COPD who presented with acute LLL pneumonia who has had rapid progression overnight of his hypoxia. This has been complicated by difficulties with sedation leading to hypotension as well as difficulties with tachypnea-induced airtrapping. He had significant respiratory variation in his cardiac stroke volume related to his high pulmonary pressures as well as impaired venous return. We have been able to augment his venous return and cardiac output with bolus colloid and correction of his labored respirations/air trapping with increased sedation and use of bolus paralytic. I am hoping that use of BiLevel/APRV will allow his oxygenation to improve with the high mean airway pressure and gradual recruitment of alveoli and gas exchange surface. His prognosis is poor unless we can reverse his hypoxia. We will attempt to diurese him with colloid support in order to decrease his non-cardiogenic pulmonary edema. GI Prophylaxis: H2 henny VTE Prophylaxis: Sub-Q Heparin (Unfractionated) VTE Mechanical Devices: Intermittant Pneumatic CD Resuscitation Status: CPR: Attempt Resuscitation Time spent 120minutes, including direct supervision at the bedside, review of diagnostic studies, and formulation of this care plan (excluding procedures). Rex Lemos MD Dec 12, 2016 07:01 ab, Quantiferon -Antibiotics per Infectious Disease - recommendations per ID appreciated. Antibiotics: Cresemba, Zosyn, Bactrim and levofloxacin -Repeat procalcitonin in AM 4. Hyponatremia, acute. Present on admission. Active -Likely secondary to insensible losses from respiratory distress -IV fluids with NS -Follow with CMP 5. Rheumatoid lung, chronic. Present on admission. Active -Patient is followed by [facility] Rheumatology and current regiment includes methylprednisolone, mycophenolate and sulfasalazine -Hold above-mentioned regimen -Stress dose steroids with Solu-Medrol 40mg IV daily 6. COPD. Present on admission. Presumed stable -Patient is not on any COPD medications outpatient -DuoNeb 7. Chronic hypertension. Present on admission. Presumed stable -Not on any antihypertensive -Currently normotensive -Follow clinically 8. Hyperglycemia. Acuity unknown. Present on admission. Active -Possibly stress-related and chronic steroid use -HbA1c pending -Bedside glucose checks. Correctional insulin Lispro low algorithm Patient Status: Patient is admitted under inpatient status with expected length of stay greater than 2 midnights due to severity of presenting symptoms, risk of adverse event, and complexity of treatment plan. GI Prophylaxis: H2 henny VTE Prophylaxis: Sub-Q Heparin (Unfractionated) VTE Mechanical Devices: Intermittant Pneumatic CD Resuscitation Status: CPR: Attempt Resuscitation Rex Lemos MD Dec 12, 2016 07:01
--- NOTE | 2016-12-12 07:02 | NUR ---
NUTRITION ASSESSMENT: ASSESS:61 YO male presenting as a transfer from [facility] with worsening shortness of breath for which he was subsequently sedated and intubated. He has a recent history of difficulty breathing related to his recently diagnosed rheumatoid arthritis / rheumatoid lung (09/02). He meets sepsis criteria related to bilateral pneumonia and possibly progressive rheumatoid lung disease. Bronchoscopy completed yesterday; results pending. Code status: full. PMHx:Rheumatoid arthritis, rheumatoid lung disease, HTN, chronic back pain, osteoarthritis, COPD with pneumonia, neuropathy, ETOH, past hx smoking and THC. DIET:NPO. LABS: Reviewed.Na 125, Chloride 90, A1c pending, Alb 2.8, Procalcitonin 0.34. MEDICATIONS: Reviewed. Albumin, levophed, lasix, precedex, nimbex, fentanyl, propofol at max dose. NUTRITION FOCUSED PHYSICAL ASSESSMENT: GI symptoms / stool: No stool reported.Julien: No score at this time. Skin Integrity: No issues reported. ANTHROPOMETRICS: Current Wt: 116.1 kgBMI: 33.8 kg/m2. IBW: 83.64 kg (139% IBW) ESTIMATED NEEDS (CLASS I OBESITY, VENT): Calories: 1840 - 2091 kcal (22 - 25 kcal / kg IBW) Protein: 151 - 167 g protein (1.8 - 2.0 g / kg IBW) Fluid: Approx. 3500 mL (30 mL / kg BW) NUTRITION DIAGNOSIS: 1)Inadequate oral intake related to inability to consume sufficient energy, as evidenced by NPO / vent status. INTERVENTION: 1) Enteral feeding recommendation follows, in the event pt. unable to be extubated over weekend. Recommend initiate Pulmocare at 10 ml/hr. Advancement based on pressor support requirements. In addition, recommend 2 packets ProSource three times per day. Goal rate enteral feeding 60 ml/hr, providing 1980 kcal (not including propofol kcal), 83 g protein (149 g protein with ProSource), meeting approx. 100% nutrient needs. 2) Unsigned enteral feeding orders in chart for provider authorization. 3)Goal rate will be adjusted related to propofol rate. MONITOR/EVALUATE: NPO / vent status, labs, GI/nutrition status. Follow up per high nutrition risk guidelines.
[2016-12-12] MEDS: fentaNYL 2,500 mCg/250 mL 2,500 MCG in IV Premix 1 EACH IV PRN (07:22)
[2016-12-12] MEDS: Insulin LISPRO 300 Unit/3 mL Inj SUBQ SCH ×4 (08:00→22:28)
[2016-12-12] MEDS ORDERED: PIPERACILLIN TAZO IV SCH (08:35)
[2016-12-12] MEDS ORDERED: DEXTROSE 5% IV SCH (08:35)
--- NOTE | 2016-12-12 08:49 | DRSVH ---
PROCEDURE: X-RAY CHEST ONE VIEW, PORTABLE ([id number]) INDICATIONS: pneumonia / intubated TECHNIQUE: One view of the chest was acquired. COMPARISON: [facility], CR, XR CHEST 1VW (PORTABLE), 12/11/2016, 14:26. Outside Film, CR , XR CHEST 2VW, 12/10/2016, 10:00. [facility], CT, CT CHEST WO CON, 11/10/2016, 11:52. FINDINGS: Surgical changes and devices: Stable position of ETT and nasogastric tube. Lungs and pleura: Diffuse, widespread bilateral pulmonary interstitial and air space opacities are p resent which have increased from prior examination. No pneumothorax. Mediastinum: Mediastinal contours appear normal. Heart size is normal. Bones and chest wall: No suspicious bony lesions. Overlying soft tissues appear unremarkable. IMPRESSION: 1. Increasing pulmonary edema and/or diffuse bilateral pneumonia. Developing ARDS cannot be excluded . Correlate clinically. 2. 3. Stable positioning of ETT and nasogastric tube. Dictated by: Fernando Campbell [facility] Interpreted: Sivan Eaton MD on 12/12/2016 at 8:46 Transcribed by: ASAD on 12/12/2016 at 8:48 Approved by: Sivan Eaton MD, PhD on 12/12/2016 at 8:52
[2016-12-12] MEDS: PIPERACILLIN TAZO IV SCH ×2 (09:11→18:43)
--- NOTE | 2016-12-12 09:12 | DRSVH ---
PROCEDURE: X-RAY CHEST ONE VIEW, PORTABLE ([id number]) INDICATIONS: post left subclavian line TECHNIQUE: One view of the chest was acquired. COMPARISON: [facility], CR, XR CHEST 1VW (PORTABLE), 12/11/2016, 14:26. Outside Film, CR , XR CHEST 2VW, 12/10/2016, 10:00. [facility], CT, CT CHEST WO CON, 11/10/2016, 11:52. Located within [facility], CR, XR CHEST 1VW (PORTABLE), 12/12/2016, 3:15. FINDINGS: Surgical changes and devices: Stable position of ETT, nasogastric tube and a left subclavian CVL is i n place with tip projected over the mid superior vena cava. Lungs and pleura: Diffuse, widespread bilateral pulmonary interstitial and air space opacities are p resent with no significant change from prior examination. No pneumothorax. Mediastinum: Mediastinal contours appear normal. Heart size is normal. Bones and chest wall: No suspicious bony lesions. Overlying soft tissues appear unremarkable. IMPRESSION: 1. Interval placement of left subclavian central line otherwise stable position of ETT and nasogastri c tube. 2. Pulmonary edema and/or diffuse bilateral pneumonia appears unchanged. Developing ARDS cannot be e xcluded. Correlate clinically. Dictated by: Fernando Campbell RRA Interpreted: Sivan Eaton MD on 12/12/2016 at 9:09 Transcribed by: ASAD on 12/12/2016 at 9:11 Approved by: Sivan Eaton MD, PhD on 12/12/2016 at 12:21
[2016-12-12] MEDS: MethylprednisoLONE Sodium Succinate 40 mg/mL Inj IVPUSH SCH (09:49)
[2016-12-12] MEDS: Famotidine Inj 50 ML IV SCH ×2 (09:50→21:50)
--- NOTE | 2016-12-12 10:06 | ABG ---
DateTimeAnalyzed 10:02:00 -_ pH ____7.018 - 7.350 7.450 pCO2 ___93.4__ -mmHg 35.0 45.0 pO2 ___59.1__ -mmHg 69.0 116 HCO3- ___22.9__ -mmol/L 22.0 26.0 ABE __-10.1__ -mmol/L -2.0 2.0 tHb ___11.7__ -g/dL O2Hb ___77.0__ -% COHb ____0.7__ -% MetHb ____1.4__ -% sO2 ___78.7__ -% 25.0 FIO2 __100.0__ -% Drawn By as - Date/Time Notified____ 10:06:00 -_ Spontaneous_RR ___22.0__ -b/min Oxygen Device 1 VENT/APRV - Notified By ams - Notified Whom _dr lima - B 766 -mmHg tO2 ___12.8__ -Vol% Cristiano test N/A -
[2016-12-12] MEDS ORDERED: SODIUM BICARB IV ONE ×2 (10:30→14:30)
[2016-12-12] MEDS ORDERED: STERILE IV ONE ×2 (10:30→14:30)
[2016-12-12] MEDS ORDERED: Sodium Bicarb (50 mEq) 8.4% 1 mEq/mL 50 mL Syringe IVPUSH ONE ×2 (11:10→11:40)
[2016-12-12] MEDS: levoFLOXacin Inj 750 MG in IV Premix 1 EACH IV SCH (11:19)
--- NOTE | 2016-12-12 11:34 | ABG ---
DateTimeAnalyzed 11:30:00 -_ pH ____7.064 - 7.350 7.450 pCO2 __100.0__ -mmHg 35.0 45.0 pO2 ___60.7__ -mmHg 69.0 116 HCO3- ___27.2__ -mmol/L 22.0 26.0 ABE ___-5.5__ -mmol/L -2.0 2.0 tHb ___12.0__ -g/dL O2Hb ___81.2__ -% COHb ____0.9__ -% MetHb ____1.3__ -% sO2 ___83.0__ -% 25.0 FIO2 __100.0__ -% PEEP ____0.0__ -cmH2O Drawn By as - Date/Time Notified____ 11:34:00 -_ Spontaneous_RR ___25.0__ -b/min Oxygen Device 1 VENT/APRV - Notified By ams - Notified Whom _dr fiorella - B 766 -mmHg tO2 ___13.7__ -Vol% Cristiano test N/A -
[2016-12-12] MEDS ORDERED: Sodium Chloride LOK Flush 10 mL Syringe IVFLUSH PRN ×2 (11:40)
[2016-12-12 12:38] LABS: Phosphorus 6.8 mg/dL (2.5-4.9)
--- NOTE | 2016-12-12 12:49 | ABG ---
DateTimeAnalyzed 12:44:37 -_ pH ____7.076 - pCO2 ___99.0__ -mmHg pO2 ___67.9__ -mmHg HCO3- ___29.0__ -mmol/L ABE ___-1.4__ -mmol/L tHb ___11.5__ -g/dL O2Hb ___86.6__ -% COHb ____1.9__ -% MetHb ____0.1__ -% sO2 ___88.4__ -% FIO2 __100.0__ -% PEEP ____0.0__ -cmH2O Drawn By as - Date/Time Notified____ 12:49:00 -_ Spontaneous_RR 25 -b/min Oxygen Device 1 VENT/APRV - Notified By ams - Notified Whom _dr fiorella - B 764 -mmHg K+ ____3.8__ -mmol/L tO2 ___14.0__ -Vol% Cristiano test N/A -
--- NOTE | 2016-12-12 13:06 | PCM.PNMED ---
Subjective Date of Service Dec 12, 2016 Subjective Overnight the patient decompensated with decreased oxygen saturations and hypotension. Boluses of lorazepam was given for agitation and ultimately requiring additional sedation with Precedex. Norepinephrine was also started for blood pressure support. The ventilator setting was changed to BiLevel/APRV. Chest x-ray shows worsening pulmonary infiltrates. Patient continues to be sedated and on the ventilator this morning. Exam Vital Signs Vital Sign - Last Date Time Temp Pulse Resp B/P Pulse Ox O2 Delivery O2 Flow Rate FiO2 12/12/16 11:45 151 112/59 89 100 12/12/16 08:00 38.0 25 Mechanical Ventilator Intake and Output 12/11/16 12/11/16 12/12/16 Cumulative From/Thru 15:00 23:00 07:00 12/11/16 19:36 - 12/12/16 06:25 Intake Total 1002 ml 1444 ml 2446 ml Output Total 300 ml 950 ml 1250 ml Balance 702 ml 494 ml 1196 ml Intake IV Total 1002 ml 1444 ml 2446 ml Output Urine Total 300 ml 950 ml 1250 ml # Bowel Movements 0 0 Exam General: Patient is sedated and on the ventilator. He is supine with a wedge under his left side. Well-developed, well-nourished. HEENT: Normocephalic, atraumatic. External ears without defect. Endotracheal tube present. Cardiovascular: Tachycardic. No murmurs but difficult to appreciate given tachycardia. Pulmonary: Decreased breath sounds bilaterally. Abdomen: Bowel tones present. Soft, nontender, nondistended. Genitourinary: [place] present. Extremities: No clubbing, cyanosis, edema, or lymphadenopathy appreciated. Skin: Normal temperature, turgor, and texture; no rash, ulcers, or subcutaneous nodules appreciated. Neurological: Sedated. IVs and Medications Medications Reviewed: Medications were reviewed in detail Lab and Diagnostics Result Diagram: 12/12/1641912/12/16419 Assessment & Plan Patient is a 61-year-old male with hypertension, rheumatoid arthritis and rheumatoid lung presenting as a transfer from [facility] for worsening shortness of breath and subsequently sedated and intubated. He is admitted and being treated for suspected pneumonia. Hospital day #2. Ventilator day #2. 1. Acute sepsis. Present on admission. Active -Meets sepsis criteria with WBC, tachycardia with likely respiratory source of infection -Requiring blood pressure support with norepinephrine to maintain MAP>60 -Pending studies: Blood cultures -Follow clinically -Repeat CBC in AM 2. Acute hypoxemic respiratory failure. Present on admission. Active -Patient's oxygen saturation reportedly in the 70s at [facility] with eventual intubation -Underwent bronchoscopy yesterday. Cultures and PCR pending. -Likely secondary to pneumonia or progressive rheumatoid lung disease. ARDS picture developing. -Current vent settings: BiLevel/APRV -Sedated with fentanyl, propofol and Precedex. Paralysis with Nimbex due to patient bucking the vent overnight -Pulmonary/Critical Care following. Recommendations per Pulm/CC appreciated -ABG in AM 3. Bilateral pneumonia, acute. Present on admission. Active -Chest x-ray with diffuse widespread bilateral pulmonary interstitial and air space opacities -Negative studies: Legionella ur ag, Strep pneumo ur ag, MRSA screen, Respiratory viral PCR -Pending studies: Fungitell, Quantiferon, Cryptococcus -Antibiotics per Infectious Disease - recommendations per ID appreciated. Continue with current antibiotics: Cresemba, Zosyn, Bactrim and levofloxacin -Increasing procalcitonin. Repeat procalcitonin in AM 4. Hyponatremia, acute. Present on admission. Ongoing -Likely secondary to insensible losses from respiratory distress -IV fluids with sodium bicarbonate given patient's acidosis -Follow with CMP 5. Rheumatoid lung, chronic. Present on admission. Active -Patient is followed by [facility] Rheumatology and current regiment includes methylprednisolone, mycophenolate and sulfasalazine -Hold above-mentioned regimen -Continue stress dose steroids with Solu-Medrol 40mg IV daily 6. COPD. Present on admission. Presumed stable -Patient is not on any COPD medications outpatient 7. Chronic hypertension. Present on admission. Presumed stable -Not on any antihypertensive -Currently hypotensive and on Levophed -Follow clinically 8. Hyperglycemia. Acuity unknown. Present on admission. Active -Possibly stress-related and chronic steroid use -HbA1c pending -Bedside glucose checks. Correctional insulin Lispro low algorithm Disposition: Patient is currently in the ICU, sedated and intubated. Pain Evaluation: Adequate Pain Control GI Prophylaxis: H2 henny VTE Prophylaxis: Sub-Q Heparin (Unfractionated) VTE Mechanical Devices: Intermittant Pneumatic CD Resuscitation Status: CPR: Attempt Resuscitation Attending Statement The patient was seen and examined together with Dr. Dumont on 12/12/2016 and I agree with the history, exam and plan as outlined in the note above. . Nate Dumont DO Dec 12, 2016 13:06 Rex Shepherd MD Dec 13, 2016 08:07
--- NOTE | 2016-12-12 13:45 | NUR ---
Hemodynamics, Line placement.. pt remained hypotensive with MAP marginally at 60. Dr Frost here at the bedside and decision was made to do urgent central line placement as it has been difficult to administer antibiotics in a timely manner due to incompatibility and has pressor at max rate. Line placed to L subclavian and pt felicity procedure well. Noted to have work of breathing this am with train of 4 at 4/4. Nimbex increased and this has been effective and breathing is non labored currently. UOP has stopped as of 1000. Hospitalist and resident updated on this. Family is present at the bedside and have been updated on status.
--- NOTE | 2016-12-12 13:59 | PCM.PROC ---
Procedure Note Date of Service: Dec 12, 2016 Pre Procedure Diagnosis: Acute Hypoxic Respiratory Failure, IV Access Post Procedure Diagnosis: Acute Hypoxic Respiratory Failure, IV Access Procedure: Left Subclavian Vein Central Venous Access Provider and Typecasting Machine Operator: Rex Lemos MD Indication for Procedure: Acute Hypoxic Respiratory Failure, IV Access Procedural Analgesia: 5mL 1% Lidocaine Procedure Details: After positioning and sterile preparation and draping, using full barrier precautions and standard technique, a 20cm 7Fr triple lumen CVC was placed into the Left Subclavian Vein on the first attempt using the modified-Seldinger technique. The pre-flushed catheter was placed with easy flushing and good blood return from all three lumens. The catheter was secured with a StatLok device and covered with a sterile chlorhexidine impregnated dressing. post-procedure pCXR documents good placement with the tip in the distal SVC and no pneumothorax. Rex Lemos MD Dec 12, 2016 13:58
--- NOTE | 2016-12-12 14:14 | DRSVH ---
[facility] [address] [place] [address] Echocardiogram Report Name: DEAN SANCHEZ CStudy Date: 12/12/2016 Height: 73 in Hospital Exam Location: [facility] Weight: 256 lb Gender: Male BSA: 2.4 m2 : 1955 Age: 61 yrs BP: 100/64 mmHg Reason For Study: Respiratory Failure Performed By: [facility] Staff Referring Physician: MONIQUE YOUNGBLOOD Interpretation Summary The patient was in a tachycardic rhythm during the exam. The left ventricular ejection fraction is grossly normal. The right ventricle is moderately dilated. Flattened septum is consistent with RV pressure/volume overload. There is mild tricuspid regurgitation. PAP is estimated to be about 50-55mmHg Procedure: A two-dimensional transthoracic echocardiogram with color flow and Doppler was performed. The study quality was technically adequate. There is no prior echocardiogram noted for this patient. The patient was in a tachycardic rhythm during the exam. Left Ventricle: There is normal left ventricular wall thickness. The left ventricle is normal in size. The left ventricular ejection fraction is grossly normal. Flattened septum is consistent with RV pressure/volume overload. Right Ventricle: The right ventricle is moderately dilated. Atria: The left atrial size is normal. Right atrial size is normal. The interatrial septum is intact with no evidence for an atrial septal defect. Mitral Valve: The mitral valve is normal in structure and function. There is no mitral valve stenosis. Aortic Valve: The aortic valve is normal in structure and function. There is no aortic valve stenosis. No aortic regurgitation is present. Tricuspid Valve: The tricuspid valve leaflets are thin and pliable. There is mild tricuspid regurgitation. PAP is estimated to be about 50-55mmHg. Pulmonic Valve: The pulmonic valve leaflets are thin and pliable; valve motion is normal. There is trace pulmonic regurgitation. Great Vessels: The aortic root is normal size. The dimensions of the ascending aorta are normal. The pulmonary artery is normal size. The inferior vena cava appeared normal. Pericardium/ Pleura There is a trace loculated pericardial effusion. There is no pleural effusion. MMode/2D Measurements & Calculations LVIDd: 5.5 cm LA dimension: 4.0 cm RA long axis LVOT diam LVIDs: 3.3 cm FS: 39.5 % LA A2 area: 20.7 cm RA area Ao root diam IVSd: 1.1 cm LA A4 area: 20.9 cm LVPWd: 1.1 cm LA length (vol): 6.0 cm : 28.1 cm asc Aorta LA vol: 60.8 ml RA vol Diam: 3.0 cm LA vol index : 100.ml RA : 42.0 mm2 IVC diam: 1.8 cm LV villalpando. diameter/BSA LV sys. diameter/BSA RVD1 (basal) RVD2 (mid) (cm/m^2): 2.3 (cm/m^2): 1.4 : 4.2 cm Doppler Measurements & Calculations Ao V2 max MV E max randolph MV E/A: 106.9 TR max randolph : 148.1 cm/sec : 52.9 cm/sec Med Peak E' Randolph : 342.0 cm/sec Ao max P.8 mmHg MV A max randolph TR max PG Ao mean P.5 mmHg : 0.49 cm/sec E/E' med: 13.4 : 47.0 mmHg LVOT Max Randolph MV P1/2t Lat Peak E' Randolph PA V2 max : 129.1 cm/sec : 52.3 msec : 57.3 cm/sec E/E' lat: 10.4 PA mean PG [place](I,D): 3.2 cm E/e' average : 0.92 mmHg sev ratio: 0.80 MV P1/2t max randolph Ao V2 mean LV V1 max PG PA V2 mean : 112.7 cm/sec : 46.8 cm/sec Ao V2 VTI: 16.3 cmLV V1 VTI: 13.0 cm MVA(P1/2t): 4.2 cm2 [place](V,D): 3.5 cm2 [place] indexed to BSA (cm^2/m^2): 1.4 Electronically signed by: Tanvir Gan on Reading Physician:12/12/2016 02:13 PM
[2016-12-12 15:11] LABS: Cryptococcal Ag Negative (Negative)
--- NOTE | 2016-12-12 16:10 | ABG ---
DateTimeAnalyzed 16:06:00 -_ pH ____7.080 - 7.350 7.450 pCO2 ___98.7__ -mmHg 35.0 45.0 pO2 ___66.8__ -mmHg 69.0 116 HCO3- ___27.9__ -mmol/L 22.0 26.0 ABE ___-4.5__ -mmol/L -2.0 2.0 tHb ___12.0__ -g/dL O2Hb ___86.7__ -% COHb ____1.0__ -% MetHb ____1.3__ -% sO2 ___88.7__ -% 25.0 FIO2 __100.0__ -% PEEP ____0.0__ -cmH2O Drawn By btl - Date/Time Notified____ 16:10:00 -_ Spontaneous_RR ___25.0__ -b/min Oxygen Device 1 VENT/APRV - Notified By btl - Notified Whom _Dr Ansari - B 765 -mmHg tO2 ___14.6__ -Vol% Cristiano test N/A -
--- NOTE | 2016-12-12 17:06 | NUR ---
Social Work: Screen D: Per EMR review, pt is a 61 year old male admitted for acute respiratory failure and pneumonia. Pt is [employer] Blind Dis[employer] with [facility] Medicaid. PCP is listed as other. NOK is Rex Fowler, son, . Advanced directives not completed. Pt is not appropriate to receive info at this time. Readmit score is moderate, 3/8. Pt is currently intubated and sedated. Pt discussed in am rounds with . Pt anticipated to be here for many days. Needs at this time are unknown. Pt lives in [place] with his s/o. PLOF is unknown at this time. P: evolving; BABY DOCTOR to continue to follow pt's clinical course and assist with discharge planning when pt is appropriate. YANELIS Chamberlain
--- NOTE | 2016-12-12 18:09 | ABG ---
DateTimeAnalyzed 18:06:00 -_ pH ____7.094 - 7.350 7.450 pCO2 ___90.2__ -mmHg 35.0 45.0 pO2 ___73.3__ -mmHg 69.0 116 HCO3- ___26.4__ -mmol/L 22.0 26.0 ABE ___-5.1__ -mmol/L -2.0 2.0 tHb ___11.4__ -g/dL O2Hb ___89.3__ -% COHb ____1.0__ -% MetHb ____1.2__ -% sO2 ___91.3__ -% 25.0 FIO2 __100.0__ -% PEEP ____0.0__ -cmH2O Drawn By as - Date/Time Notified____ 18:09:00 -_ Spontaneous_RR ___27.0__ -b/min Oxygen Device 1 VENT/APRV - Notified By ams - Notified Whom _Dr Canelo - B 765 -mmHg tO2 ___14.4__ -Vol% Cristiano test N/A -
[2016-12-12] MEDS: Cisatracurium Inj 200,000 MCG in 0.9% Sodium Chloride-Pha MIX 100 ML IV SCH (21:16)
[2016-12-12] MEDS: STERILE IV SCH (21:16)
[2016-12-12] MEDS: SODIUM BICARB IV SCH (21:16)
--- NOTE | 2016-12-12 21:52 | ABG ---
DateTimeAnalyzed 21:48:00 -_ pH ____7.161 - 7.350 7.450 pCO2 ___89.4__ -mmHg 35.0 45.0 pO2 ___81.7__ -mmHg 69.0 116 HCO3- ___30.6__ -mmol/L 22.0 26.0 ABE ___-0.0__ -mmol/L -2.0 2.0 tHb ___11.6__ -g/dL O2Hb ___92.5__ -% COHb ____1.0__ -% MetHb ____1.2__ -% sO2 ___94.6__ -% 25.0 FIO2 __100.0__ -% Drawn By LT - Date/Time Notified____ 21:52:00 -_ Notified By LT - Notified Whom SULLENBERGER - B 765 -mmHg tO2 ___15.2__ -Vol% Cristiano test N/A -
[2016-12-13] VITALS (12 sets, daily range): BP systolic 97–143; BP diastolic 51–81; PULSE 111–130; RESP 25–27; O2SAT 87–100
[2016-12-13] MEDS: Albuterol-Ipratropium 3 mL Inhalation Solution NEB SCH ×6 (00:21→19:46)
[2016-12-13] MEDS: TRIMETHOPRIM SULFA IV SCH ×3 (01:05→17:47)
[2016-12-13] MEDS: DEXTROSE 5% IV SCH ×8 (01:05→19:01)
[2016-12-13] MEDS: Heparin 5,000 Unit/mL Inj SUBQ SCH ×3 (01:05→17:38)
[2016-12-13] MEDS: SODIUM BICARB IV SCH (01:09)
[2016-12-13] MEDS: STERILE IV SCH (01:09)
[2016-12-13 01:12] LABS: Magnesium 2.1 mg/dL (1.6-2.6); Phosphorus 8.4 mg/dL (2.5-4.9)
[2016-12-13] MEDS: Dexmedetomidine 400 mCg/100 mL NS Premix IV SCH ×7 (01:24→21:29)
[2016-12-13] MEDS: PIPERACILLIN TAZO IV SCH ×3 (02:01→19:01)
--- NOTE | 2016-12-13 03:21 | ABG ---
DateTimeAnalyzed 03:17:00 -_ pH ____7.306 - 7.350 7.450 pCO2 ___77.3__ -mmHg 35.0 45.0 pO2 ___82.6__ -mmHg 69.0 116 HCO3- ___37.4__ -mmol/L 22.0 26.0 ABE ____9.2__ -mmol/L -2.0 2.0 tHb ___10.7__ -g/dL O2Hb ___94.0__ -% COHb ____1.1__ -% MetHb ____1.0__ -% sO2 ___96.0__ -% 25.0 FIO2 __100.0__ -% Drawn By LT - Date/Time Notified____ 03:21:00 -_ Notified By LT - Notified Whom DR SULLENBERGER - B 765 -mmHg tO2 ___14.2__ -Vol% Cristiano test N/A -
[2016-12-13] MEDS ORDERED: CALCIUM GLUCO IV ONE (03:50)
[2016-12-13] MEDS ORDERED: SODIUM CHLORIDE 0.9% IV ONE (03:50)
[2016-12-13] MEDS: ISAVUCONAZONIUM SULFATE IV SCH ×2 (05:18→14:27)
[2016-12-13] MEDS: Insulin LISPRO Medium-Dose Scale SUBQ SCH ×3 (05:26→18:05)
[2016-12-13 05:32] LABS: BASOPHILS % (AUTO) 0.2 % (0-3); EOSINOPHILS % (AUTO) 0 % (0-5); MONOCYTES % (AUTO) 7.2 % (4-12); Mean Corpuscular Hemoglobin 33.1 pg (27.0-35.0); Mean Corpuscular Volume 100.3 fL (81-100); NEUTROPHILS % (AUTO) 89.2 % (40-74); Platelet Count 212 bil/L (150-400)
--- NOTE | 2016-12-13 05:46 | NUR ---
tachycardia, sedation, abg's vent settings bilevel APRV, 100% fio2, pressure high= 32, I:E 4.5:1, resp rate 27 bpm all night long, fentanyl gtt at 5mcg/hr per md request per report, propofol gtt at 5mcg/kg/min titrated off per md request per orders, precedex gtt infusing at .7mcg/kg/min, pt working well with vent per RT, abg's done twice during night--results called to cane cutter, see orders on chart, ls= decreased t/o, slightly course, minimal clear/whitish sputum per ett, sats upper 90's, bis= high 40's to low 50's during night, 60 this am with mvt/activity, tof= 0/4, nimbex weaned down from 1.5 to 1.0 mcg/kg/min, pt's hr went from 140's to 200 bpm for brief time, svt, pt suctioned and hr returned to 140's, nimbex turned back up to .15mcg/kg/min, md aware, effective setting for pt, pt's hr increases with movement and cxr, hr decreased from 160 down to 1 teens t/o shift, see flow sheet, cvp=16-18, good uop per f/c, isaiah uop, norepi decreased from 0.8mcg/kg/min to 0.15mcg/kg/min, right radial a line bp wnl, md aware that vigileo numbers may not be accurate especially at beginning of shift due to pt's rhythm -st with multiple pac's and pvc's, see results on flow sheet, left subclavian central line intact, ogt to lis, placement =wnl, sml output, see ccu flow sheet, plan: resp support, sedation/comfort,
[2016-12-13 05:48] LABS: Phosphorus 6.6 mg/dL (2.5-4.9)
[2016-12-13] MEDS: Norepineph 8,000 mCg/250 mL NS 8,000 MCG in IV Premix 1 EACH IV SCH ×2 (05:52→15:40)
--- NOTE | 2016-12-13 07:15 | DRSVH ---
PROCEDURE: X-RAY CHEST ONE VIEW, PORTABLE ([id number]) INDICATIONS: pna, severe ards TECHNIQUE: One view of the chest was acquired. COMPARISON: [facility], CR, XR CHEST 1VW (PORTABLE), 12/12/2016, 8:35. FINDINGS: Surgical changes and devices: Endotracheal tube, left-sided central venous catheter and visualized po rtion of the nasogastric tube appear unchanged. Lungs and pleura: Diffuse appearance of bilateral pulmonary interstitial and airspace disease are pre sent without significant interval change. No pneumothorax. Mediastinum: Mediastinal contours appear normal. Heart size is normal. Bones and chest wall: No suspicious bony lesions. Overlying soft tissues appear unremarkable. IMPRESSION: Stable interval exam appearing most suggestive of diffuse edema and/or bilateral pneumoni a. Appearance is also consistent with ARDS. Dictated by: Mackenzie Yeboah M.D. on 12/13/2016 at 7:08 Approved by: Mackenzie Yeboah M.D. on 12/13/2016 at 7:14
--- NOTE | 2016-12-13 07:39 | ABG ---
DateTimeAnalyzed 07:34:00 -_ pH ____7.338 - 7.350 7.450 pCO2 ___71.4__ -mmHg 35.0 45.0 pO2 102 -mmHg 69.0 116 HCO3- ___37.3__ -mmol/L 22.0 26.0 ABE ____9.9__ -mmol/L -2.0 2.0 tHb ___10.3__ -g/dL O2Hb ___95.6__ -% COHb ____1.1__ -% MetHb ____1.1__ -% sO2 ___97.7__ -% 25.0 FIO2 __100.0__ -% PEEP ____0.0__ -cmH2O Drawn By as - Date/Time Notified____ 07:39:00 -_ Spontaneous_RR ___27.0__ -b/min Oxygen Device 1 APRV/VENTILATOR - Notified By AMS - Notified Whom DR HERBERTH / DR YOUNGBLOOD -_ B 764 -mmHg tO2 ___14.0__ -Vol% Cristiano test N/A -
[2016-12-13] MEDS: MethylprednisoLONE Sodium Succinate 40 mg/mL Inj IVPUSH SCH (07:52)
[2016-12-13] MEDS: Famotidine Inj 50 ML IV SCH ×2 (07:52→21:17)
--- NOTE | 2016-12-13 08:42 | PCM.PNMED ---
Subjective Date of Service Dec 13, 2016 Subjective Pulmonary/critical care consultation Patient is a 61-year-old male transfer from 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 Post intubation day 2, patient continues to be sedated, intubated. Vent setting P-high [id number]. T-high 1.8 sec, FIO2 100% and ABG showing improved gas exchange and pH. pH 7.338, pCO2 71, pO2 102, and HCO3 37.3. Bicarb drip off overnight. Chest x-ray showed diffused opacities, consistent with ARDS, minimal improvement of Left upper lobe. He had one episode of fever Tmax 38 within the past 24hrs. Otherwise, afebrile throughout the night. Viral respiratory PCR negative, blood cultures negative 24hs. Contact with microlab at [facility] yesterday showed Yeast and alpha -strep on sputum, these may be contaminant though. PCP smear still pending. Patient with leukocytosis, trending down. WBC 12.4. Hemodynamically stable, MAP 80's. Nursing was able to titrate down Levophed 0.13 this AM. Echocardiogram unremarkable EF 60-65%. Hgb 10.3, a significant drop from 13.0 on admission. Though, patient maintain a net positive fluid balance 7.5L. Kidney function covering, patient autodiurese ~700cc since midnight. No NG tube feed at this time. Neurologically, patient on nimbex, BIS reading in the 40 overnight, spiked to 70 's by this AM. He is on Predexex and minimal fentanyl. Profofol was weened off overnight. Exam Vital Signs Vital Sign - Last Date Time Temp Pulse Resp B/P Pulse Ox O2 Delivery O2 Flow Rate FiO2 12/13/16 07:53 90 12/13/16 07:30 128 100 12/13/16 04:00 36.9 27 136/66 Mechanical Ventilator Intake and Output 12/12/16 12/12/16 12/13/16 Cumulative From/Thru 15:00 23:00 07:00 12/11/16 19:36 - 12/13/16 06:27 Intake Total 3629 ml 3867 ml 9942 ml Output Total 150 ml 310 ml 732 ml 2442 ml Balance -150 ml 3319 ml 3135 ml 7500 ml Intake IV Total 3629 ml 3867 ml 9942 ml Output Urine Total 220 ml 732 ml 2202 ml Gastric Drainage Total 150 ml 90 ml 240 ml # Bowel Movements 0 0 0 Exam General: sedated, intubated Eyes: PERRLA, Scleral Anicteri Neck: Supple, Left subclavian line Chest & Lungs: Coarse breath sounds throughout, diminished right side Cardiovascular: Regular Rate/Rhythm, Normal S1, Normal S2, No Murmurs/Rubs/ Gallops Abdomen: Non-tender, Non-distended Genitourinary: Montgomery Present Extremities: No cyanosis/clubbing. mild pedal edma bilat Neurological: on paralytics. Lab and Diagnostics Result Diagram: 12/13/1652312/13/16523 Assessment & Plan Patient is a 61-year-old male transfer from [facility] with MHx significant for rheumatoid arthritis-interstitial lung disease on several immunosuppressive medications and COPD presented hypoxic, ARDS from pneumonia. Uncertain of the pathogen at this juncture, although viral pcr and blood culture have been negative, will continue with broad spectrum antibiotics and antifungal. Meanwhile, patient with severe ARDS with initial P/F ratio 66. To oxygenate and recruit aveoli, patient was placed on APRV with mean pressure maintain at [id number]. Though, this caused significant hemodynamic dysfunction relating to severe respiratory acidosis, right heart stain, and ineffective cardiac contractility. Patient was placed on max Levophed and bicarb to augment. Kidney function decline, anuric 2nd to hypoperfusion, however, finally autodiurese late afternoon yesterday once MAP improved and stable. Our goals today remains oxygenation. We will ween him down FIO2 while titrate off Levophed. Possibly, lasix to diurese should he remains hypodermically stable. He has a positive fluid balance of 7.5L. Albumin supplement is not indicated at this time. Problem List/Plan # Sepsis 2nd to pneumonia on vent support for respiratory failure in the setting of RA-ILD and COPD -antibiotics/fungal # Hypoxic Hypercapnic respiratory failure -Cont ventilation with APRV, recruit aveoli, decrease FIO2 with goal at 60% -ABG and in the AM # Pneumonia -labs blood cultures and antigens/antibodies ordered -Cont Zosyn, Levaquin, Bactrim, and Cresemba -Awaits BAL final analysis. deescalated abx should BCx cont to be negative. # RA- ILD -Restart steroids: Solu-Medrol 40mg daily to prevent addisonian crisis # COPD -Duoneb Q4H # Acute kidney Injury -avoid nephrotoxic meds, maintain map >65 # Hyperglycemia 2nd to presors, steroids -Lispro high correction scale Q4H check # Neurologics: currently on paralytic, high risk for ICU delirium -Precedex and fentanyl, may need to add profofol should BIS >70 #Prophylaxis: GI and DVT -famotidine and heparin -Consider trophic feed Total time spent 1hrs. 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 He required a marked escalation of his ventilatory support yesterday to APRV/BiLevel with FiO2 and mean airway pressure of 27. Unfortunately, this high level of support required to achieve/ maintain adequate oxygenation lead to severe impairment in ventilation and marked hypercapnea. He required aggressive HCO3 support to correct his severe acute respiratory acidosis and mitigate the subsequent hemodynamic effects of his acidemia. Overnight, we were able to wean off his exogenous bicarbonate as the APRV/BiLevel was able to recruit lung and his gas exchange improved. He continues to require high dose sedation with fentanyl, dexmedetomidine, and propofol as well as low dose cisatracurium to maintain comfort and vent synchrony. He did shake his head to questions during a brief paralytic/sedation vacation this morning. He continues to require variable amounts of norepinephrine support based upon his level of sedation/paralysis and his very preload-challenging high intrathoracic vent pressure. Despite his acute renal failure with Cr up from 0.6 to 2.6, he continues make adequate urine. He continues to have I's >> O's. We are awaiting results of his PCP smear, serologies, and cultures. He continues on broad spectrum antimicrobials for his immunosuppressed pneumonia, including trimethoprim-sulfamethoxazole and methylprednisolone for PJP coverage. Goals today include weaning his FiO2, minimizing paralytic and norepinephrine infusions, and attempting to limit his infusing fluids to prevent worsening of his pulmonary edema. If we are successful in weaning his norepinephrine and cisatracurium, we will begin trickle enteral feeding. . GI Prophylaxis: H2 henny VTE Prophylaxis: Sub-Q Heparin (Unfractionated) VTE Mechanical Devices: Intermittant Pneumatic CD Resuscitation Status: CPR: Attempt Resuscitation Time spent 70minutes, excluding procedures Attending Statement The patient was seen and examined together with Dr. Ansari today and I have added additional information to the note above. Mark Ansari DO Dec 13, 2016 08:42 Rex Lemos MD Dec 13, 2016 15:13
[2016-12-13] MEDS: levoFLOXacin Inj 750 MG in IV Premix 1 EACH IV SCH (08:45)
[2016-12-13] MEDS ORDERED: Chlorhexidine 0.12% 473 mL Oral Solution MUC_MEMBRM PRN (08:50)
--- NOTE | 2016-12-13 14:02 | PCM.PNMED ---
Subjective Date of Service Dec 13, 2016 Subjective Overnight: Patient remained intubated and sedated. Respiratory rate approximately 27 throughout the night. Fentanyl continued and propofol titrated off. Precedex remained. Per morning report oxygen was able to be weaned down from 100-90% and high support pressures remain. Today: Patient remains intubated and sedated, family member present in room at time of exam though sleep on couch. Exam Vital Signs Vital Sign - Last Date Time Temp Pulse Resp B/P Pulse Ox O2 Delivery O2 Flow Rate FiO2 12/13/16 12:15 136 116/77 98 90 12/13/16 12:03 36.9 27 Mechanical Ventilator Intake and Output 12/12/16 12/12/16 12/13/16 Cumulative From/Thru 15:00 23:00 07:00 12/11/16 19:36 - 12/13/16 06:27 Intake Total 3629 ml 3867 ml 9942 ml Output Total 150 ml 310 ml 732 ml 2442 ml Balance -150 ml 3319 ml 3135 ml 7500 ml Intake IV Total 3629 ml 3867 ml 9942 ml Output Urine Total 220 ml 732 ml 2202 ml Gastric Drainage Total 150 ml 90 ml 240 ml # Bowel Movements 0 0 0 Exam General: Patient is sedated and on the ventilator. HEENT: Normocephalic, atraumatic. External ears without defect. ETT in place Cardiovascular: Tachycardic rate with regular rhythm, no appreciable murmurs though difficult secondary to ambient noise from ventilator and multiple IV infusions. Pulmonary: Decreased breath sounds bilaterally. Wheezes heard on inhalation and exhalation. Abdomen: Bowel tones present. Soft palpation 4 quadrants. Genitourinary: Montgomery present. Extremities: No clubbing, cyanosis, edema, or lymphadenopathy appreciated. Skin: Normal temperature, turgor, and texture; no rash, ulcers, or subcutaneous nodules appreciated. Neurological: Sedated. IVs and Medications Medications Reviewed: Medications were reviewed in detail Lab and Diagnostics Result Diagram: 12/13/1652312/13/16523 Microbiology Nasal MRSA PCR negative Strep pneumo urine antigen negative Nasopharyngeal viral PCR negative Bronchial washing negative Blood cultures negative to date X-Rays, CTs and MRIs . X-RAY CHEST ONE VIEW, PORTABLE IMPRESSION: 1. Support lines and tubes as above. 2. Increasing pulmonary edema and/or bilateral inflammatory process. Recommend clinical correlation and followup. Dictated by: Fernando STREET Interpreted: Mackenzie Yeboah MD on 12/11/2016 at 14: 55 X-RAY CHEST ONE VIEW, PORTABLE IMPRESSION: 1. Increasing pulmonary edema and/or diffuse bilateral pneumonia. Developing ARDS cannot be excluded. Correlate clinically. 2. 3. Stable positioning of ETT and nasogastric tube. Dictated by: Fernando STREET Interpreted: Sivan Eaton MD on 12/12/2016 at 8:46 X-RAY CHEST ONE VIEW, PORTABLE IMPRESSION: 1. Interval placement of left subclavian central line otherwise stable position of ETT and nasogastric tube. 2. Pulmonary edema and/or diffuse bilateral pneumonia appears unchanged. Developing ARDS cannot be excluded. Correlate clinically. Dictated by: Fernando STREET Interpreted: Sivan Eaton MD on 12/12/2016 at 9:09 X-RAY CHEST ONE VIEW, PORTABLE IMPRESSION: Stable interval exam appearing most suggestive of diffuse edema and/ or bilateral pneumonia. Appearance is also consistent with ARDS. Dictated by: Mackenzie Yeboah M.D. on 12/13/2016 at 7:08 Cardiac Echo Impressions . Echocardiogram Report Interpretation Summary The patient was in a tachycardic rhythm during the exam. The left ventricular ejection fraction is grossly normal. The right ventricle is moderately dilated. Flattened septum is consistent with RV pressure/volume overload. There is mild tricuspid regurgitation. PAP is estimated to be about 50-55mmHg Electronically signed by: Tanvir Gan Assessment & Plan Patient is a 61-year-old male with hypertension, rheumatoid arthritis and rheumatoid lung presenting as a transfer from [facility] for worsening shortness of breath and subsequently sedated and intubated. He is admitted and being treated for suspected pneumonia. Hospital day #3. Ventilator day #3. 1. Acute sepsis. Present on admission. Active -Meets sepsis criteria with WBC, tachycardia with likely respiratory source of infection -Requiring blood pressure support with norepinephrine to maintain MAP>60 -Pending studies: Blood cultures - negative to date -Follow clinically -Continue monitor CBC 2. Acute hypoxemic respiratory failure. Present on admission. Active -Patient's oxygen saturation reportedly in the 70s at [facility] with eventual intubation -Bronchoscopy cultures negative -Likely secondary to pneumonia or progressive rheumatoid lung disease. ARDS picture developing. -Current vent settings: BiLevel/APRV -Sedated with fentanyl, propofol and Precedex. Paralysis with Nimbex due to patient bucking the vent overnight -Pulmonary/Critical Care following. Recommendations per Pulm/CC appreciated -ABG in AM 3. Bilateral pneumonia, acute. Present on admission. Active -Chest x-ray with diffuse widespread bilateral pulmonary interstitial and air space opacities -Negative studies: Legionella ur ag, Strep pneumo ur ag, MRSA screen, Respiratory viral PCR -Pending studies: Fungitell, Quantiferon, Cryptococcus -Antibiotics per Infectious Disease - recommendations per ID appreciated. Continue with current antibiotics: Cresemba, Zosyn, Bactrim and levofloxacin -Increasing procalcitonin. Repeat procalcitonin in AM 4. Hyponatremia, acute. Present on admission. Resolved. -Likely secondary to insensible losses from respiratory distress -IV fluids with sodium bicarbonate given patient's acidosis -Patient now hypernatremic level of 146 -Follow with CMP 5. Rheumatoid lung, chronic. Present on admission. Active -Patient is followed by [facility] Rheumatology and current regiment includes methylprednisolone, mycophenolate and sulfasalazine -Hold above-mentioned regimen -Continue stress dose steroids with Solu-Medrol 40mg IV daily 6. COPD. Present on admission. Presumed stable -Patient is not on any COPD medications outpatient -Nebulizer treatments every 4 7. Chronic hypertension. Present on admission. Presumed stable -Not on any antihypertensive -Currently hypotensive and on Levophed -Follow clinically 8. Hyperglycemia. Acuity unknown. Present on admission. Active -Possibly stress-related and chronic steroid use -HbA1c pending -Bedside glucose checks. Correctional insulin Lispro low algorithm Disposition: Patient is currently in the ICU, sedated and intubated. Pain Evaluation: Adequate Pain Control GI Prophylaxis: H2 henny VTE Prophylaxis: Sub-Q Heparin (Unfractionated) VTE Mechanical Devices: Intermittant Pneumatic CD Resuscitation Status: CPR: Attempt Resuscitation Attending Statement The patient was seen and examined together with Dr. Fair on 12/13/2016 and I agree with the history, exam and plan as outlined in the note above. . BELKYS FAIR DO Dec 13, 2016 14:02 Rex Shepherd MD Dec 14, 2016 08:15
[2016-12-13] MEDS: Propofol Inj 1,000,000 MCG in IV Premix 1 EACH IV PRN (15:41)
--- NOTE | 2016-12-13 16:21 | ABG ---
DateTimeAnalyzed 16:14:43 -_ pH ____7.418 - pCO2 ___59.8__ -mmHg pO2 ___56.0__ -mmHg HCO3- ___38.6__ -mmol/L ABE ___12.9__ -mmol/L tHb ____9.9__ -g/dL O2Hb ___86.6__ -% COHb ____1.7__ -% MetHb ___-0.1__ -% sO2 ___88.0__ -% FIO2 ___70.0__ -% PEEP ____0.0__ -cmH2O Set_RR 27 -b/min Drawn By as - Date/Time Notified____ 16:21:00 -_ Spontaneous_RR 30 -b/min Oxygen Device 1 APRV/VENTILATOR - Notified By ams - Notified Whom _dr fiorella - B 758 -mmHg K+ ____3.9__ -mmol/L tO2 ___12.1__ -Vol% Cristiano test N/A -
[2016-12-13] MEDS: Cisatracurium Inj 200,000 MCG in 0.9% Sodium Chloride-Pha MIX 100 ML IV SCH (17:47)
[2016-12-13 18:06] LABS: Magnesium 2.4 mg/dL (1.6-2.6); Phosphorus 5.3 mg/dL (2.5-4.9)
--- NOTE | 2016-12-13 18:35 | NUR ---
Hemodynamics/respiratory/sedation Arterial line dampened, unable to obtain accurate reading. IV therapy notified, attempted to reposition/redress line without success. Arm cuff reading stable, MAP > 65. Norepinephrine infusing at 0.10mcg/kg/min. ST with PACs per real estate firm manager, HR low 100s. Montgomery to DD, 925cc urine output this shift. Continues on APRVC with 80% fi02. Oxygen saturation stable, maintaining >92%. Lungs diminished with faint crackles to RLL. Nimbex, fentanyl, & precedex gtts continued for ventilator tolerance & pain control.
[2016-12-13] MEDS: Chlorhexidine 0.12% 15 mL Oral Solution MT SCH (21:17)
--- NOTE | 2016-12-13 22:20 | ABG ---
DateTimeAnalyzed 22:17:00 -_ pH ____7.363 - 7.350 7.450 pCO2 ___64.3__ -mmHg 35.0 45.0 pO2 ___76.9__ -mmHg 69.0 116 HCO3- ___35.7__ -mmol/L 22.0 26.0 ABE ____9.0__ -mmol/L -2.0 2.0 tHb ___10.1__ -g/dL O2Hb ___92.3__ -% COHb ____1.0__ -% MetHb ____1.0__ -% sO2 ___94.2__ -% 25.0 FIO2 ___80.0__ -% Drawn By LT - Date/Time Notified____ 22:20:00 -_ Notified By LT - Notified Whom _DR HERBERTH - B 759 -mmHg tO2 ___13.3__ -Vol% Cristiano test N/A -
--- NOTE | 2016-12-13 22:23 | PCM.PROC ---
Procedure Note Date of Service: Dec 13, 2016 Pre Procedure Diagnosis: Acute Hypoxic and Hypercapneic Respiratory Failure, Immunosuppressed Pneumonia, Arterial Access for Hemodynamic and Blood Gas monitoring Post Procedure Diagnosis: Acute Hypoxic and Hypercapneic Respiratory Failure, Immunosuppressed Pneumonia, Arterial Access for Hemodynamic and Blood Gas monitoring Procedure: R Radial arterial catheter exchange over a guidewire Provider and Package Lift Operator: Rex Lemos MD Procedure Details: pt with clotted R radial 20g catheter precluding ABG draws and hemodynamic monitoring. after takedown of old dressing and sterile prep with chlorhexidine, the existing tubing was removed and the 20g catheter cannulated with an appropriate guidewire. Thereafter, the 4cm 20g catheter was removed and a new 10cm 20g catheter was advanced over the guidewire into the radial artery. The guidewire was then removed and new FloTrak tubing on a pressure bag was connected. The catheter had good arterial waveform and flushed/anika without difficulty. The catheter was secured with a sterile chlorhexidine impregnated dressing. Rex Lemos MD Dec 13, 2016 22:23
[2016-12-14] VITALS (14 sets, daily range): BP systolic 107–177; BP diastolic 55–77; PULSE 110–139; RESP 22–25; O2SAT 88–98
[2016-12-14] MEDS: Albuterol-Ipratropium 3 mL Inhalation Solution NEB SCH ×7 (00:08→23:55)
[2016-12-14] MEDS: Heparin 5,000 Unit/mL Inj SUBQ SCH ×3 (00:27→18:26)
[2016-12-14] MEDS: Chlorhexidine 0.12% 15 mL Oral Solution MT SCH ×6 (00:28→20:42)
[2016-12-14] MEDS: Dexmedetomidine 400 mCg/100 mL NS Premix IV SCH ×9 (00:32→22:13)
[2016-12-14] MEDS: TRIMETHOPRIM SULFA IV SCH ×3 (01:09→17:05)
[2016-12-14] MEDS: DEXTROSE 5% IV SCH ×7 (01:09→18:26)
--- NOTE | 2016-12-14 01:39 | NUR ---
a line/vent/sedation it solutions sales consultant notified that right radial a line no longer functional, it solutions sales consultant in and larger a line catheter placed over guidewire, pressure bag and tubing changed, it solutions sales consultant aware of 2200 abg results and HD numbers, fio2 decreased to .75, ls- decreased and course, better air movement tonight then last night, sats upper 90's, resp rate =25, pt on nimbex at 1.8mcg/kg/min, effective for ventilator compliance, 1.5mcg/kg/min attempted --ineffective, fentanyl gtt increased to 100mcg/hr then 150mcg/hr per md, precedex gtt at 1mcg/kg/hr, bis 60's down to 40's, cvp=12-16, norepi gtt decreased from .1mcg/kg/min to 0.04mcg/kg/min, good uop per f/c, bp stable, map>70, see ccu flow sheet for HD numbers, tele- st, pac's, shorter pr noted, continuous rotation attempted, more ectopy noted, rotation turned off, ogt placement= wnl, lis, left subclavian cvl intact, see ccu flow sheet, plan:continue resp support/sedation for comfort,
[2016-12-14] MEDS: PIPERACILLIN TAZO IV SCH ×3 (01:57→18:26)
[2016-12-14] MEDS: fentaNYL 2,500 mCg/250 mL 2,500 MCG in IV Premix 1 EACH IV PRN ×2 (03:32→15:21)
[2016-12-14 03:55] LABS: EOSINOPHILS % (AUTO) 0 % (0-5); Mean Corpuscular Hemoglobin 32.7 pg (27.0-35.0); Mean Corpuscular Volume 96.7 fL (81-100)
[2016-12-14 04:14] LABS: BASOPHILS % (AUTO) 0 % (0-3); MONOCYTES % (AUTO) 4 % (4-12); NEUTROPHILS % (AUTO) 82 % (40-74); Platelet Count 208 bil/L (150-400)
[2016-12-14 04:27] LABS: Magnesium 2.6 mg/dL (1.6-2.6); Phosphorus 4.4 mg/dL (2.5-4.9)
[2016-12-14] MEDS: Insulin LISPRO Medium-Dose Scale SUBQ SCH ×4 (06:00→18:37)
--- NOTE | 2016-12-14 06:10 | ABG ---
DateTimeAnalyzed 06:02:00 -_ pH ____7.369 - 7.350 7.450 pCO2 ___62.0__ -mmHg 35.0 45.0 pO2 ___73.4__ -mmHg 70.0 100 HCO3- ___34.9__ -mmol/L 22.0 26.0 ABE ____8.5__ -mmol/L -2.0 2.0 tHb ___10.2__ -g/dL 12.0 18.0 O2Hb ___92.0__ -% 95.0 COHb ____1.0__ -% 1.5 MetHb ____1.0__ -% 0.4 1.5 sO2 ___93.9__ -% 25.0 FIO2 ___21.0__ -% Drawn By LT - Date/Time Notified____ 06:07:00 -_ Notified By LT - Notified Whom KUNNY H, RN - B 762 -mmHg tO2 ___13.2__ -Vol% Cristiano test N/A -
[2016-12-14] MEDS: MethylprednisoLONE Sodium Succinate 40 mg/mL Inj IVPUSH SCH (07:31)
[2016-12-14] MEDS: Famotidine Inj 50 ML IV SCH ×2 (07:31→20:41)
--- NOTE | 2016-12-14 07:52 | DRSVH ---
PROCEDURE: X-RAY CHEST ONE VIEW, PORTABLE ([id number]) INDICATIONS: pna, ards TECHNIQUE: One view of the chest was acquired. COMPARISON: [facility], CR, XR CHEST 1VW (PORTABLE), 12/13/2016, 3:15. FINDINGS: Surgical changes and devices: Endotracheal tube is approximately 4.3 cm superior to the daniela. There are diffuse bilateral opacities, unchanged compared to prior exam. Lungs and pleura: No pleural effusions or pneumothorax. Lungs are clear. Mediastinum: Mediastinal contours appear normal. Heart size is normal. Bones and chest wall: No suspicious bony lesions. Overlying soft tissues appear unremarkable. IMPRESSION: Stable interval exam with diffuse opacity suggestive ARDS, multifocal pneumonia and/or ed nelson. Dictated by: Mackenzie Yeboah M.D. on 12/14/2016 at 7:49 Approved by: Mackenzie Yeboah M.D. on 12/14/2016 at 7:50
[2016-12-14] MEDS ORDERED: Furosemide 10 mg/mL 4 mL Inj IVPUSH ONE (08:05)
--- NOTE | 2016-12-14 08:16 | PCM.PNMED ---
Subjective Date of Service Dec 14, 2016 Subjective pt remains intubated, deeply sedated and paralyzed. 24Hour Events: - improving lung compliance and gas exchange with weaning of his FiO2 from 1.0 to 0.75 and marked improvement in his hypercapnea allowing us to stop his HCO3 infusion and resolve his respiratory acidosis - gradual improvement in his BP allowing significant weaning of his norepinephrine infusion - spontaneous improvement in his UO and Cr, although I's >> O's (6048/2118) - pt shook his head to questions during a brief paralytic and sedation vacation yesterday morning - pt remains on paralysis given vent dyssynchrony despite deep sedation yesterday Exam Vital Signs Vital Sign - Last Date Time Temp Pulse Resp B/P Pulse Ox O2 Delivery O2 Flow Rate FiO2 12/14/16 07:46 Ventilator 12/14/16 07:22 37.8 110 25 107/57 97 75 Intake and Output 12/13/16 12/13/16 12/14/16 Cumulative From/Thru 15:00 23:00 07:00 12/11/16 19:36 - 12/14/16 06:11 Intake Total 2601 ml 2319 ml 94896 ml Output Total 925 ml 976 ml 4343 ml Balance 1676 ml 1343 ml 01412 ml Intake IV Total 2601 ml 2319 ml 20885 ml Output Urine Total 925 ml 950 ml 4077 ml Gastric Drainage Total 26 ml 266 ml # Bowel Movements 0 Exam sedated and paralyzed elderly male intubated and ventilated diffuse mild edema BIS monitor and SpO2 monitor on forehead, pupils 6mm and minimally reactive, anicteric oral ETT and GT coarse maintenance mechanic elevators al BS with decreased anterior crackles compared with 12/13 tachycardic and regular with occasional premature beats, distant heart tones without murmur, diffuse mild edema, no JVD noted mild obese abdomen without distension, rare bowel sounds juan catheter in place with clear yellow urine SCDs in place L SC CVC in place without erythema or swelling; R Radial art line in place without erythema IVs and Medications Medications Reviewed: Medications were reviewed in detail Lab and Diagnostics ABGs 06:02:00 -_ pH ____7.369 - 7.350 7.450 pCO2 ___62.0__ -mmHg 35.0 45.0 pO2 ___73.4__ -mmHg 70.0 100 HCO3- ___34.9__ -mmol/L 22.0 26.0 ABE ____8.5__ -mmol/L -2.0 2.0 22:17:00 -_ pH ____7.363 - 7.350 7.450 pCO2 ___64.3__ -mmHg 35.0 45.0 pO2 ___76.9__ -mmHg 69.0 116 HCO3- ___35.7__ -mmol/L 22.0 26.0 ABE ____9.0__ -mmol/L -2.0 2.0 16:14:43 -_ pH ____7.418 - pCO2 ___59.8__ -mmHg pO2 ___56.0__ -mmHg HCO3- ___38.6__ -mmol/L ABE ___12.9__ -mmol/L 07:34:00 -_ pH ____7.338 - 7.350 7.450 pCO2 ___71.4__ -mmHg 35.0 45.0 pO2 102 -mmHg 69.0 116 HCO3- ___37.3__ -mmol/L 22.0 26.0 ABE ____9.9__ -mmol/L -2.0 2.0 03:17:00 -_ pH ____7.306 - 7.350 7.450 pCO2 ___77.3__ -mmHg 35.0 45.0 pO2 ___82.6__ -mmHg 69.0 116 HCO3- ___37.4__ -mmol/L 22.0 26.0 ABE ____9.2__ -mmol/L -2.0 2.0 Result Diagram: 12/14/16 0342 12/14/16 0342 Microbiology Nasal MRSA PCR negative Strep pneumo urine antigen negative Nasopharyngeal viral PCR negative Bronchial washing negative Blood cultures negative to date X-Rays, CTs and MRIs pCXR review today reveals improving airspace filling/edema pattern which is superimposed upon a background of diffuse interstitial prominence and fibrosis with sparing of the Left upper lobe; ETT, gastric tube, and L SC CVC all in good position Cardiac Echo Impressions . 12/12/2016 Echocardiogram Report Interpretation Summary The patient was in a tachycardic rhythm during the exam. The left ventricular ejection fraction is grossly normal. The right ventricle is moderately dilated. Flattened septum is consistent with RV pressure/volume overload. There is mild tricuspid regurgitation. 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 He required marked escalation of his ventilatory support to APRV/BiLevel with FiO2 and mean airway pressure of 27. Unfortunately, this high level of support lead to severe impairment in ventilation and marked hypercapnea, requiring aggressive HCO3 infusion to correct his severe acute respiratory acidosis and the subsequent hemodynamic effects. He has required high dose sedation with fentanyl, dexmedetomidine, and propofol as well as low dose cisatracurium to maintain comfort and vent synchrony. This, in turn, has required significant vasopressor support with norepinephrine. His acute hypoxia and severe acidosis, unfortunately, caused acute renal failure with his Cr bumping from 0.6 to 2.7, although he has remained non- oliguric. His I's have been significantly greater than his O's with slowly progressive peripheral edema. Remarkably, his UO and Cr have been improving over the past 36hours. We are awaiting results of his PCP smear, serologies, and cultures. He continues on broad spectrum antimicrobials for his immunosuppressed pneumonia, including trimethoprim-sulfamethoxazole and methylprednisolone for PJP coverage. Problem List/Plan Immunosuppressed Pneumonia: -pt with severe iatrogenic immunosuppression (high dose prednisone (>30mg/day ) c2bntrse, sulfasalazine, mycophenalate c6jncil, and recent dosing of rituximab , all without any abx prophylaxis, for his RA symptoms and presumptive RA-ILD -pt with underlying pulmonary fibrosis and COPD mixed picture -initial alveolar filling pattern without fevers concerning for viral or PJP pneumonias at the top of the list but all etiologies on the DDx -covered broadly with piperacillin-tazobactam, levofloxacin, trimethoprim- sulfamethoxazole + methylprednisolone, and isuvaconazole- we will continue all of these pending BAL results -idy [place] sputum culture with small amounts of alpha-strep and yeast- I doubt these are pathogenic -BAL studies with negative viral PCR screen and negative bacterial culture. AFB smear negative. The remainder of his BAL studies are pending. -continues on PJP coverage with trimethoprim-sulfamethoxazole and methylprednisolone -initial bronch BAL ruled out an alveolar hemorrhage process -based upon his very aggressive DMARD/immunosuppressive regimen, my suspicion for an acute flare of RA-ILD is close to zero. Nonetheless, if his BAL studies are all negative, transbronchial Bx or VATS Bx may be indicated Severe Acute Hypoxic, Hypercapnic respiratory failure/ARDS: -pt with profound gas exchange derangement from acute alveolar filling process -pt with moderate reduction in Diffusion Capacity on PFTs in October 2016 but not on O2 therapy prior to acute illness -He has responded well to BiLevel/APRV with very high mean airway pressure with good lung recruitment, improvement in his gas exchange and compliance, and improvement in his pCXR -continue APRV with Phigh 32 as we continue to wean his FiO2. Once we are able to get his FiO2 down to 0.60 (?later today?), we will begin to SLOWLY wean his Phigh as his improving gas exchange will tolerate -continue high level sedation +/- paralysis to maintain vent synchrony at such high airway pressures -begin diuresis today to minimize his pulmonary vascular leak and facilitate weaning of his very high vent pressures. This will take several days. Rheumatoid Arthritis: -pt inadequately treated with high dose prednisone and NSAIDs prior to see Dr Gomez for the first time in October 2016 -he was started on sulfasalazine and mycophenolate given his Hx of EtOH abuse -given his many months of high dose glucocorticoid (30-40mg/day), he will need at least 20mg/day to prevent adrenal crisis. He will continue on PJP treatment dose of 40mg daily Underlying COPD: -albuterol/ipratropium SVNs Q4H Non-Oliguric Acute Renal Failure: -initially with pre-renal DANGELO but progressed due to hypoxia and severe acidosis-induced hypoperfusion related to worsening pulmonary gas exchange -continue to monitor renal perfusion with FloTrak device and hourly I's/O's -avoid nephrotoxic meds, maintain map >65 -given I's>>O's and progressive peripheral edema, we will attempt to begin diuresis in order to minimize pulmonary vascular leak, improve his gas exchange/ compliance, decrease bowel edema, and make the world a better place. Hypotension/Hypoperfusion: -resolving with correction of the severe respiratory acidosis -he continues to require norepinephrine to support his BP in the face of his very high sedation requirements Hyperglycemia: -due to stress of acute illness, norepinephrine, and high dose glucocorticoid -continue aspart insulin high correction scale Q4H check Sedation: -dexmedetomidine and fentanyl infusions -continue BIS monitoring given concomitant paralytic Nutrition: -begin trickle feeds with pulmocare at 10mL/hr with prosource protein supplementation -advancing his feeding rate will be dependent upon return of more bowel function (impaired by critical illness, high dose sedation, vasopresors, and bowel edema) ICU Prophylaxis: -famotidine -SCDs and SC heparin Total Critical Care time, excluding procedures- 60minutes. . Pain Evaluation: Adequate Pain Control GI Prophylaxis: H2 henny VTE Prophylaxis: Sub-Q Heparin (Unfractionated) VTE Mechanical Devices: Intermittant Pneumatic CD Resuscitation Status: CPR: Attempt Resuscitation Rex Lemos MD Dec 14, 2016 08:16
[2016-12-14] MEDS: ISAVUCONAZONIUM SULFATE IV SCH (08:37)
[2016-12-14] MEDS: levoFLOXacin Inj 750 MG in IV Premix 1 EACH IV SCH (08:42)
[2016-12-14] MEDS: Norepineph 8,000 mCg/250 mL NS 8,000 MCG in IV Premix 1 EACH IV SCH (08:43)
[2016-12-14] MEDS: Propofol Inj 1,000,000 MCG in IV Premix 1 EACH IV PRN (08:45)
--- NOTE | 2016-12-14 11:05 | NUR ---
Social Work: Continued d/c planning Data: Pt continues to be intubated and sedated. Pt discussed in am rounds with MD. Pt anticipated to be here for many days. Needs at this time are unknown. SWITCHBOARD WIRE WORKER HELPER will continue to follow. Plan: SWITCHBOARD WIRE WORKER HELPER to continue to follow pt's clinical course and assist with discharge planning when pt is appropriate. YANELIS Ortega
[2016-12-14] MEDS: Cisatracurium Inj 200,000 MCG in 0.9% Sodium Chloride-Pha MIX 100 ML IV SCH (11:48)
--- NOTE | 2016-12-14 16:19 | ABG ---
DateTimeAnalyzed 16:14:11 -_ pH ____7.348 - pCO2 ___66.9__ -mmHg pO2 ___75.7__ -mmHg HCO3- ___36.7__ -mmol/L ABE ___10.1__ -mmol/L tHb ___10.0__ -g/dL O2Hb ___92.4__ -% COHb ____1.8__ -% MetHb ____0.0__ -% sO2 ___94.1__ -% FIO2 ___70.0__ -% Drawn By btl - Date/Time Notified____ 16:19:00 -_ Oxygen Device 1 VENTILATOR - Notified By btl - Notified Whom ___Dr. Canelo - B 763 -mmHg K+ ____4.5__ -mmol/L tO2 ___13.1__ -Vol% Cristiano test N/A -
[2016-12-14 17:12] LABS: Magnesium 2.5 mg/dL (1.6-2.6); Phosphorus 4.8 mg/dL (2.5-4.9)
[2016-12-14] MEDS ORDERED: Calcium GLUCO 10% (Gm) Inj 2 GM in 0.9% Sodium Chloride 100 ML IV ONE (17:25)
[2016-12-14] MEDS ORDERED: Amiodarone 150 mg/100 mL D5W Premix IV ONE (17:27)
[2016-12-14] MEDS ORDERED: Amiodarone 360 mg/200 mL D5W Premix IV ONE (17:28)
[2016-12-14] MEDS ORDERED: Amiodarone 150 mg/100 mL D5W 150 MG in IV Premix 1 EACH IV ONE (17:30)
--- NOTE | 2016-12-14 18:01 | PCM.PNMED ---
Subjective Date of Service Dec 14, 2016 Subjective Patient is a 61-year-old male with hypertension, rheumatoid arthritis and rheumatoid lung presenting as a transfer from [facility] for worsening shortness of breath. Hospital day #4. Vent day #4. Overnight the arterial line was no longer functioning but this was replaced by Dr. Lemos. The patient remains sedated and intubated on the ventilator. FiO2 weaned down from 0.75 to 0.70. He continues to be on Precedex 1.4mcg/kg/hr, fentanyl 150mcg/hr and Nimbex 1.8mcg/kg/min. Pressor support continues to be weaned down with norepinephrine 0.03 mcg/kg/min. Exam Vital Signs Vital Sign - Last Date Time Temp Pulse Resp B/P Pulse Ox O2 Delivery O2 Flow Rate FiO2 12/14/16 16:33 Ventilator 12/14/16 16:29 60 12/14/16 16:28 38.4 117 25 118/60 98 Intake and Output 12/13/16 12/13/16 12/14/16 Cumulative From/Thru 15:00 23:00 07:00 12/11/16 19:36 - 12/14/16 06:11 Intake Total 2601 ml 2319 ml 41694 ml Output Total 925 ml 976 ml 4343 ml Balance 1676 ml 1343 ml 78985 ml Intake IV Total 2601 ml 2319 ml 70766 ml Output Urine Total 925 ml 950 ml 4077 ml Gastric Drainage Total 26 ml 266 ml # Bowel Movements 0 Exam General: Patient is sedated and on the ventilator. Well-developed, well- nourished. HEENT: Normocephalic, atraumatic. External ears without defect. Endotracheal tube present. Cardiovascular: Regular rate and rhythm. No murmurs appreciated. Pulmonary: Decreased breath sounds on right side and left base. Air movement audible on left upper area. Abdomen: Bowel tones present. Soft, nontender, nondistended. Genitourinary: Montgomery present. Extremities: No clubbing, cyanosis, edema, or lymphadenopathy appreciated. Skin: Normal temperature, turgor, and texture; no rash, ulcers, or subcutaneous nodules appreciated. Neurological: Sedated. IVs and Medications Medications Reviewed: Medications were reviewed in detail Lab and Diagnostics Result Diagram: 12/14/16 0342 12/14/16 1600 Microbiology Nasal MRSA PCR negative Strep pneumo urine antigen negative Nasopharyngeal viral PCR negative Bronchial washing negative Blood cultures negative to date X-Rays, CTs and MRIs pCXR review today reveals improving airspace filling/edema pattern which is superimposed upon a background of diffuse interstitial prominence and fibrosis with sparing of the Left upper lobe; ETT, gastric tube, and L SC CVC all in good position Cardiac Echo Impressions . 12/12/2016 Echocardiogram Report Interpretation Summary The patient was in a tachycardic rhythm during the exam. The left ventricular ejection fraction is grossly normal. The right ventricle is moderately dilated. Flattened septum is consistent with RV pressure/volume overload. There is mild tricuspid regurgitation. PAP is estimated to be about 50-55mmHg Assessment & Plan Patient is a 61-year-old male with hypertension, rheumatoid arthritis and rheumatoid lung presenting as a transfer from [facility] for worsening shortness of breath and subsequently sedated and intubated. He is admitted and being treated for suspected pneumonia. Hospital day #4. Ventilator day #4. 1. Acute septic shock. Present on admission. Active -Meets criteria with WBC, tachycardia, evidence of end organ damage with DANGELO, with likely respiratory source of infection -Requiring blood pressure support with norepinephrine to maintain MAP>60 -Negative studies: Viral PCR, Blood cultures, Legionella and strep pneumo ur ag -Continue to wean norepinephrine -Follow clinically -Repeat CBC in AM 2. Acute hypoxemic respiratory failure. Present on admission. Active -Patient's oxygen saturation reportedly in the 70s at [facility] with eventual intubation -Underwent bronchoscopy yesterday. Cultures and PCR pending. -Likely secondary to pneumonia or progressive rheumatoid lung disease. ARDS. -Current vent settings: BiLevel/APRV with FiO2 0.70 -Continue to wean vent -Sedated with fentanyl, Precedex. Paralysis with Nimbex due to earlier dyssynchrony with vent -Pulmonary/Critical Care following. Recommendations per Pulm/CC appreciated -ABG in AM 3. Bilateral pneumonia, acute. Present on admission. Active -Chest x-ray with diffuse widespread bilateral pulmonary interstitial and air space opacities -Negative studies: Fungitell, Cryptococcus ag, Legionella ur ag, Strep pneumo ur ag, MRSA screen, Respiratory viral PCR -Pending studies: Quantiferon -Antibiotics per Infectious Disease - recommendations per ID appreciated. Continue with current antibiotics: Cresemba, Zosyn, Bactrim and levofloxacin -Repeat procalcitonin in AM 4. Acute kidney injury. Not present on admission. Active -Likely secondary to hypotension from septic shock -Avoid nephrotoxins -Good urine output with 0.57ml/kg/hr -Try to maintain output of 0.50ml/kg/hr 5. Hyponatremia, acute. Present on admission. Resolved -Likely secondary to insensible losses from respiratory distress -Follow with CMP 6. Rheumatoid lung, chronic. Present on admission. Active -Patient is followed by [facility] and current regiment includes methylprednisolone, mycophenolate and sulfasalazine -Hold above-mentioned regimen -Continue stress dose steroids with Solu-Medrol 40mg IV daily 7. COPD. Present on admission. Presumed stable -Patient is not on any COPD medications outpatient 8. Chronic hypertension. Present on admission. Presumed stable -Not on any antihypertensive -Currently on Levophed for hypotension -Follow clinically 9. Hyperglycemia. Acuity unknown. Present on admission. Active -Possibly stress-related and chronic steroid use -HbA1c 4.9% -Bedside glucose checks. Correctional insulin Lispro low algorithm Disposition: Patient remains in the ICU, sedated and intubated. Pain Evaluation: Adequate Pain Control GI Prophylaxis: H2 henny VTE Prophylaxis: Sub-Q Heparin (Unfractionated) VTE Mechanical Devices: Intermittant Pneumatic CD Resuscitation Status: CPR: Attempt Resuscitation Attending Statement The patient was seen and examined together with Dr. Dumont on 12/14/2016 and I agree with the history, exam and plan as outlined in the note above. . Nate Dumont DO Dec 14, 2016 18:01 Rex Shepherd MD December 15, 2016 07:27
--- NOTE | 2016-12-14 18:03 | NUR ---
SVT Increased ectopy noted late this afternoon. Pt experiencing 10 to 20 second runs of SVT, HR 200s. Returns to ST with PACs/MAT in the 110s to 130s. Amiodarone bolus administered as ordered. Calcium gluconate infusing. Norepinephrine infusing at 0.08 mcg/kg/min. MAP > 65. Fentanyl, precedex and nimbex gtts continued for ventilator tolerance and pain control. Nimbex gtt increased to 1.8mcg/kg/min. BIS 40s. Continues on APRVC with 60% fi02. Maintaining Sp02 >92%. Febrile, 38.4. Montgomery to DD, 1900cc urine out this shift. Pulmocare trickling feeding initiated this AM, pt tolerating. Will continue to monitor.
[2016-12-14] MEDS: [UNRECOGNIZED DRUG - OTHER] IV SCH (21:30)
[2016-12-14] MEDS ORDERED: Amiodarone 150 mg/100 mL D5W IV ONE (21:35)
--- NOTE | 2016-12-14 21:43 | ABG ---
DateTimeAnalyzed 21:38:00 -_ pH ____7.309 - 7.350 7.450 pCO2 ___68.2__ -mmHg 35.0 45.0 pO2 ___59.7__ -mmHg 69.0 116 HCO3- ___33.2__ -mmol/L 22.0 26.0 ABE ____5.9__ -mmol/L -2.0 2.0 tHb ___10.2__ -g/dL O2Hb ___84.7__ -% COHb ____1.0__ -% MetHb ____1.2__ -% sO2 ___86.6__ -% 25.0 FIO2 ___60.0__ -% PEEP ____0.0__ -cmH2O Vt __359.0__ -L Drawn By blf - Oxygen Device 2 BI-LEVEL H-32,TOTAL PEEP 12 - Date/Time Notified____ 21:42:00 -_ Spontaneous_RR ___25.0__ -b/min Oxygen Device 1 VENTILATOR - Notified By BLF - Not[facility] Wh[facility] -_ B 765 -mmHg tO2 ___12.1__ -Vol% Cristiano test N/A -
[2016-12-14] MEDS: Furosemide 10 mg/mL 4 mL Inj IVPUSH SCH (22:30)
[2016-12-15] VITALS (15 sets, daily range): BP systolic 92–144; BP diastolic 53–72; PULSE 104–134; RESP 22–25; O2SAT 93–99
[2016-12-15] MEDS: Dexmedetomidine 400 mCg/100 mL NS Premix IV SCH ×9 (00:32→23:58)
[2016-12-15] MEDS: Norepineph 8,000 mCg/250 mL NS 8,000 MCG in IV Premix 1 EACH IV SCH (00:39)
[2016-12-15] MEDS: Heparin 5,000 Unit/mL Inj SUBQ SCH ×3 (01:12→16:00)
[2016-12-15] MEDS: Cisatracurium Inj 200,000 MCG in 0.9% Sodium Chloride-Pha MIX 100 ML IV SCH (01:12)
[2016-12-15] MEDS: Chlorhexidine 0.12% 15 mL Oral Solution MT SCH ×6 (01:13→19:54)
[2016-12-15] MEDS: PIPERACILLIN TAZO IV SCH ×3 (01:26→18:35)
[2016-12-15] MEDS: DEXTROSE 5% IV SCH ×6 (01:26→18:35)
[2016-12-15] MEDS: TRIMETHOPRIM SULFA IV SCH ×2 (01:26→08:30)
[2016-12-15] MEDS ORDERED: IV Premix 1 EACH IV ONE ×3 (02:42→23:53)
[2016-12-15] MEDS ORDERED: Amiodarone 360 mg/200 mL D5W Premix IV ONE ×3 (02:42→23:53)
--- NOTE | 2016-12-15 02:54 | NUR ---
rhythm/ amiodarone/ drips/ fever Pt has occasional short runs of svt/st with pac's and occ pvc's, hr reaching the 180s beginning of shift. md notified, Amiodarone bolus of 150mg given at 2100 with a subsequent drip of 1mg/min for 6hrs per orders then 0.5mg/min for 18hrs. Pt continues with st and pac's/pvc's and approx 5 beats of svt, hr 120-140 during shift, md aware, short burst of svt, non sustaining at 0130 and 0145, not all beats perfusing, vigileo numbers fluctuate frequently, ? accurate, am labs sent, Fentanyl at 100-150mcg/hr, Nimbex at 1.8 mcg/kg/min, effective, precedex at 1.4mcg/kg/hr, bis high 30's to low 50's, norepinephrine at .03 mcg/kg/hr, goal map 65-70, attempting to wean per md request, Pt temp 37.8C at 2000, tylenol given per ogt per md orders, 37.3 C at 0000, hob up, tf per orders per ogt, ogt placement- wnl, residuals = 30-40ml/s, no bm, no bts, abd soft, bilevel vent settings, fio2 increase from .60-.70 per md order post 2200 abg's, see rt and ccu flow sheet for settings, ls= decreased and sl. course, crackles noted to rll, cvp=15-19, good uop per f/c, lasix dose given in small increments to full dose per md request, right radial a line intact, somewhat difficult to draw from, left subclavian cvl intact, see ccu flow sheet, plan:labs/abg's, resp support and sedation, Addendum: 12/15/16 at 0528 by NGUYỄN GUTIERREZ Arterial line is positional and ECG rhythm and ectopy variable, vigileo hemodynamics parameters not reliable. Previous night, pt tolerated sheet helen ospina SpO2 dropped to 89% while lifting patient up in bed.
[2016-12-15 02:55] LABS: BASOPHILS % (AUTO) 0.1 % (0-3); EOSINOPHILS % (AUTO) 0 % (0-5); MONOCYTES % (AUTO) 5.3 % (4-12); Mean Corpuscular Hemoglobin 31.6 pg (27.0-35.0); Mean Corpuscular Volume 101.6 fL (81-100); NEUTROPHILS % (AUTO) 88.7 % (40-74)
[2016-12-15 03:16] LABS: Platelet Count 215 bil/L (150-400)
[2016-12-15] MEDS: [UNRECOGNIZED DRUG - OTHER] IV SCH ×2 (03:29→23:59)
[2016-12-15 03:32] LABS: Magnesium 2.6 mg/dL (1.6-2.6); Phosphorus 5.6 mg/dL (2.5-4.9)
[2016-12-15] MEDS: Albuterol-Ipratropium 3 mL Inhalation Solution NEB SCH ×5 (04:12→23:30)
[2016-12-15] MEDS: fentaNYL 2,500 mCg/250 mL 2,500 MCG in IV Premix 1 EACH IV PRN (05:14)
[2016-12-15] MEDS: Insulin LISPRO Medium-Dose Scale SUBQ SCH ×4 (06:00→18:38)
--- NOTE | 2016-12-15 06:05 | ABG ---
DateTimeAnalyzed 06:01:00 -_ pH ____7.278 - 7.350 7.450 pCO2 ___70.3__ -mmHg 35.0 45.0 pO2 ___75.6__ -mmHg 69.0 116 HCO3- ___31.8__ -mmol/L 22.0 26.0 ABE ____4.0__ -mmol/L -2.0 2.0 tHb ___10.5__ -g/dL O2Hb ___90.3__ -% COHb ____1.0__ -% MetHb ____1.2__ -% sO2 ___92.3__ -% 25.0 FIO2 ___70.0__ -% PEEP ____0.0__ -cmH2O Vt __339.0__ -L Drawn By blf - Oxygen Device 2 BI-LEVEL H-32,TOTAL PEEP 12 - Date/Time Notified____ 06:05:00 -_ Spontaneous_RR ___25.0__ -b/min Oxygen Device 1 VENTILATOR - Notified By blf - Notified Whom [facility] RN -_ B 764 -mmHg tO2 ___13.4__ -Vol% Cristiano test N/A -
[2016-12-15] MEDS ORDERED: Albumin 25% 25 GM in IV Premix 1 EACH IV ONE (06:10)
--- NOTE | 2016-12-15 06:26 | NUR ---
This AM MD called and updated on pt labs, ABGs, and assessment. See new vent orders and albumin orders.
[2016-12-15] MEDS: Furosemide 10 mg/mL 4 mL Inj IVPUSH SCH ×2 (08:30→19:54)
[2016-12-15] MEDS: ISAVUCONAZONIUM SULFATE IV SCH (08:30)
[2016-12-15] MEDS: MethylprednisoLONE Sodium Succinate 40 mg/mL Inj IVPUSH SCH (08:30)
[2016-12-15] MEDS: Famotidine Inj 50 ML IV SCH (08:31)
[2016-12-15] MEDS: levoFLOXacin Inj 750 MG in IV Premix 1 EACH IV SCH (08:31)
--- NOTE | 2016-12-15 09:44 | DRSVH ---
PROCEDURE: X-RAY CHEST ONE VIEW, PORTABLE ([id number]) INDICATIONS: ARDS, pneumonia TECHNIQUE: One view of the chest was acquired. COMPARISON: [facility], CR, XR CHEST 1VW (PORTABLE), 12/14/2016, 5:41. FINDINGS: Surgical changes and devices: Endotracheal tube is approximately 6.2 cm superior to the daniela. Naso gastric tube redemonstrated tip traversing the GE junction. Lungs and pleura: There are diffuse bilateral opacities, unchanged compared to prior exam. Mediastinum: Mediastinal contours appear normal. Heart size is normal. Bones and chest wall: No suspicious bony lesions. Overlying soft tissues appear unremarkable. IMPRESSION: 1. No significant interval change in pulmonary edema and/or multifocal bilateral pneumonia. ARDS can not be excluded. Dictated by: Fernando Campbell [facility] Interpreted: Mackenzie Yeboah MD on 12/15/2016 at 9:42 Transcribed by: JORGE on 12/15/2016 at 9:43 Approved by: Mackenzie Yeboah M.D. on 12/15/2016 at 17:05
--- NOTE | 2016-12-15 09:44 | PROG NOTE ---
[address] [address] PROGRESS NOTE PATIENT: DEAN SANCHEZ : 1955 MR#: [id number] ADMIT: 12/11/2016 JOB ID: [id number] DATE: 12/15/2016 REASON FOR FOLLOWUP: Bilateral pulmonary infiltrates with ventilatory dependent respiratory failure, shock and probable septic shock. INTERVAL HISTORY: I initially saw this patient in consultation back on December 11, which was now four days ago. At that point, we knew that this was a gentleman with rheumatoid arthritis on multiple immunosuppressive agents who developed progressive shortness of breath superimposed on what is felt to be interstitial lung disease due to his rheumatoid arthritis. He eventually required intubation and high levels of oxygen support. During the past four days, his level of required oxygen support has fluctuated somewhat but is basically a little changed and he remains on 70% FiO2 on the ventilator. He has been paralyzed over the ensuing days to improve his ventilation. In addition, the patient has been intermittently hypotensive and is hypotensive this morning, requiring moderate doses of norepinephrine for blood pressure support. He has also had problems with his renal as well as his hepatic function. A wide variety of diagnostic modalities were employed during his first couple days in the hospital but there is still no definitive answer as to the cause of this profound respiratory as well as hemodynamic decline. This morning, I examined the patient carefully with members of the ICU team and discussed the case extensively with the Internal Medicine team as well as the Pulmonary design consultant, nursing and respiratory therapy as well. The patient is paralyzed. There is obviously no additional data from him. PHYSICAL EXAMINATION: Reveals an afebrile gentleman. He was febrile last night to 38.4, but this morning is 37.5, pulse is 118, respiratory rate is ventilator dependent since he is paralyzed. Blood pressure 103/56, but he is requiring moderate doses of norepinephrine. He is saturating 96% on 70% FiO2. The patient's eyes are without scleral icterus or conjunctivitis. His pupils are small and symmetrical. Nose normal. Oral endotracheal tube, oral gastric tube in good position. His IV support lines are free of apparent infection. Neck without adenopathy. His lungs are notable for bilateral crackles diffusely. Cardiac tones regular rate and rhythm this morning, but tachycardic and without apparent murmur. Abdomen is soft and without mass or ascites. Montgomery catheter is present. There is no evidence for skin rash. His feet and hands are reasonably well perfused this morning, though perhaps slightly cool to touch. LABORATORIES: Today, include a white count 13.5, which is relatively constant over the last few days, 88% segs. He did have a significant bandemia with metamyelocytes yesterday. Creatinine is 2.25. LFTs are rising. His bilirubin is only 0.2 and his alk phos is only 64, but his AST is 604, up from normal on admission, and his ALT is 541, also up from normal on admission. Procalcitonin was basically negative the first two days in the hospital at 0.2 and 0.3, respectively, and then abruptly jumped to 144 yesterday, is 137 today. Creatinine is rising, 2.25 today. The bronch wash from late on the had only 58 white cells, 5000 red cells. Serologic studies include negative crypto antigen, negative Fungitell and negative urine Legionella and pneumococcal antigen. Aspergillus antibody, Aspergillus antigen and QuantiFERON Gold are pending. Additional micro studies include bronch wash results from the negative culture, growing only scant normal leoanrd. Negative multiplex PCR, and AFB smear also negative. Viral cultures on the bronch wash as well as Legionella and Pneumocystis smears are still pending, and I have called the lab to try and expedite these results. All blood cultures are negative, and I have called the lab to confirm that. MRSA screen here as well as at [facility] is negative. Note that I spoke to the [facility] in detail this morning. He was there briefly before he was transferred here by helicopter on the . The blood cultures from [facility] were negative. The sputum grew some normal leonard with a few colonies of yeast. The MRSA smear of the nares there was negative. IMAGING: Includes chest x-rays which continue to show bilateral diffuse pulmonary infiltrates. IMPRESSION: This is an extremely difficult case of an unfortunate gentleman with rheumatoid arthritis who is felt to have a rheumatoid lung. He has been on increasing doses and types of immunosuppressive agents including steroids, mycophenolate and Rituxan. He then developed rapidly progressive pulmonary infiltrates, shortness of breath and respiratory failure, now associated with vasopressor-requiring apparent septic shock. The differential diagnosis is broad here, but, of course, the steep rise in procalcitonin makes this especially concerned for bacterial possibilities. Since I saw on the , he has been receiving high doses of Bactrim as well as Zosyn and levofloxacin aimed at a wide variety of bacterial possibilities but, so far, we have no positive cultures. We await some of our studies from bronchoscopy, as well as some serologic studies. RECOMMENDATIONS: 1. Will continue with these antibiotics. 2. I have asked the lab to expedite the Legionella and PCP studies from the bronch wash. 3. Additional bronchoscopy or other studies may be indicated. 4. It is unclear what empiric changes in antibiotics are indicated given our negative cultures and extremely broad-spectrum at this point, but this will be considered during ICU rounds this morning and additional changes may be forthcoming.
--- NOTE | 2016-12-15 10:28 | ABG ---
DateTimeAnalyzed 10:24:00 -_ pH ____7.350 - 7.350 7.450 pCO2 ___54.3__ -mmHg 35.0 45.0 pO2 ___68.9__ -mmHg 69.0 116 HCO3- ___29.2__ -mmol/L 22.0 26.0 ABE ____3.5__ -mmol/L -2.0 2.0 tHb ____8.8__ -g/dL O2Hb ___90.2__ -% COHb ____1.1__ -% MetHb ____1.3__ -% sO2 ___92.4__ -% 25.0 FIO2 __100.0__ -% PRVC 500 - PEEP ____6.0__ -cmH2O Drawn By jj - Date/Time Notified____ 10:27:00 -_ Spontaneous_RR ___22.0__ -b/min Oxygen Device 1 VENTILATOR - Notified By jj - Notified Whom dr kendregan - B 763 -mmHg tO2 ___11.3__ -Vol% Cristiano test N/A -
--- NOTE | 2016-12-15 10:34 | ABG ---
DateTimeAnalyzed 10:30:00 -_ pH ____7.313 - pCO2 ___67.0__ -mmHg pO2 ___39.6__ -mmHg HCO3- ___33.0__ -mmol/L ABE ____5.9__ -mmol/L tHb ____9.5__ -g/dL O2Hb ___62.9__ -% COHb ____1.0__ -% MetHb ____1.3__ -% sO2 ___64.4__ -% FIO2 __100.0__ -% PRVC 500 - PEEP ____6.0__ -cmH2O Drawn By rn - Date/Time Notified____ 10:34:00 -_ Spontaneous_RR ___22.0__ -b/min Oxygen Device 1 VENTILATOR - Notified By jj - Notified Whom dr kendregan - B 763 -mmHg tO2 ____8.4__ -Vol%
--- NOTE | 2016-12-15 11:15 | NUR ---
NUTRITION FOLLOW UP: ASSESS: 61 YO M transferred with acute respiratory failure requiring intubation. Pt on enteral feedings at 10 ml/hr, appears well tolerated, residual of 60 ml per CCU rounds. PMHx: RA, rheumatoid lung disease, HTN, chronic back pain, OA, COPD, PNA, neuropathy, ETOH, past hx smoking/THC. DIET: NPO. NUTRITION SUPPORT: Pulmocare @ 10 ml/hr. LABS: Reviewed. BUN 57, Cr 2.25, Glu 222, Lactic acid 3.7, Ca 7.6, Phos 5.6, AST 604, ALT 541, Alb 2.4 MEDICATIONS: Reviewed. Albumin, Lasix, Insulin, Solu-medrol, Pressor, Nimbex, Precedex, Fentanyl. GI: No BM noted. SKIN: No issues reported. ANTHROPOMETRICS: Current Wt: 124.6 kg, BMI: 33.8 kg/m2, IBW: 83.64 kg (139% IBW), Admit wt: 116.1 ESTIMATED NEEDS (CLASS I OBESITY, VENT): Calories: 5246-3058 kcal (22-25 kcal/kg IBW) Protein: 151-167 g protein (1.8-2.0 g/kg IBW) Fluid: Approx. 3500 mL (30 mL/kg BW) NUTRITION DIAGNOSIS: 1) Inadequate oral intake related to inability to consume sufficient energy, as evidenced by NPO/vent status.---PERSISTS. INTERVENTION: 1) Once able recommend advancing enteral feeding. Pulmocare at 10 ml/hr, advance 10 ml q 6 hr to goal rate of 60 ml/hr. In addition, recommend 2 packets ProSource three times per day. Goal rate enteral feeding 60 ml/hr, providing 1980 kcal, 83 g protein (149 g protein with ProSource), meeting approx. 100% nutrient needs. 2) Unsigned enteral feeding orders in chart for provider authorization. MONITOR/EVALUATE: NPO/vent status, TF tolerance/advance, labs, POC, GI/nutrition status. Follow per high nutrition risk guidelines.
[2016-12-15] MEDS: LORazepam 100 mg/100 mL NS 100 MG in IV Premix 100 EACH IV SCH (12:51)
--- NOTE | 2016-12-15 14:21 | PATH ---
SURGICAL PATHOLOGY Attending Physician:See Additional MD CASE STATUS: Signed Out PATIENT NAME: Crow Dominguez PID: [id number] : 1955 DATE COLLECTED:12/11/2016 00:00 SPECIMEN: Left Lower Lobe Lung CLINICAL HISTORY: Left Lower Lobe Lung ICD-10 code not given FINAL DIAGNOSIS: 1.LEFT LOWER LOBE LUNG LAVAGE CYTOLOGY SPECIMEN (CELL BLOCK AND THINPREP): NEGATIVE FOR MALIGNANT CELLS. CELLS PRESENT INCLUDE RARE GROUPS OF REACTIVE-APPEARING EPITHELIAL CELLS WELL HEMOSIDERIN-LADEN MACROPHAGES AND SOME PMNS. NO EOSINOPHILS NOTED. ICD10 CODE J90 GROSS DESCRIPTION: Received fresh on 12/12/2016 is approximately 5 cc of cloudy pink fluid. Prepared are one cell block and one ThinPrep slide. Vo ICD-9 CODES: CPT CODES: 1: 20772, 97835 Electronically Signed Out Reuben Orozco MD [facility] [address], [place] [address] Technical component performed at [facility], [facility] [address], [place], [address]
[2016-12-15] MEDS ORDERED: Thiamine Inj 100 MG in Dextrose 5% 50 ML IV ONE (14:30)
--- NOTE | 2016-12-15 15:42 | PROG NOTE ---
[address] [address] PROGRESS NOTE PATIENT: DEAN SANCHEZ : 1955 MR#: [id number] ADMIT: 12/11/2016 JOB ID: [id number] DATE: 12/15/2016 PULMONARY CRITICAL CARE FOLLOWUP NOTE: PROBLEM LIST: 1. ARDS. 2. Rheumatoid arthritis with pulmonary fibrosis. 3. Obstructive airways disease. 4. Acute kidney injury. 5. Acute hepatopathy. 6. Hypotension, requiring pressors. 7. Immunosuppression with probable pneumonia. SUBJECTIVE: None. OBJECTIVE: Temperature 37.5, with T-max being 38.4. Pulse 120s to 140s, irregular rhythm. Respiratory rate 25 with ventilator set at 25. Blood pressure 92/54 on norepinephrine 0.03 mcg/kg per minute. O2 sat on FiO2 of 70% using APRV mode is 97%. I and O shows 4.9 L in, 2.8 L out. General appearance: Sedated, paralyzed on the ventilator. Eyes: Conjunctivae are pink and moist. Pupils 1-2 mm in diameter. Throat could not be well examined due to the presence of an endotracheal tube. Chest shows fairly good breath sounds bilaterally, consistent with airway pressure release ventilation mode. No use of accessory muscles. Heart: Rapid rate. Irregular rhythm. Heart tones seem normal. Abdomen soft. Nondistended. A few bowel tones present. Extremities: 1 to 2+ pretibial edema. LABORATORY DATA: Shows a white count of 13,500, with 88 polymorphonuclears, 4 lymphs, 5 monocytes, no eosinophils. Hemoglobin 9.9 and stable. Platelet count 215,000 and stable. Sodium 138, potassium 5.2, chloride 92, CO2 is 30, BUN 57 and rising, creatinine 2.25 and rising, glucose 222. Lactic acid 3.7, up from values three days ago of 1.4. Calcium 7.6, phosphorus 5.6. Magnesium normal at 2.6. Total bilirubin normal at 0.2. AST moderately elevated at 604, upper limits normal being 50 units/L. ALT 541, normal limits being 44 units/L. Alkaline phos normal at 64. Total protein 4.4, albumin 2.4. Procalcitonin 136. Chest x-ray shows endotracheal tube in reasonable position, a bit high. Diffuse changes throughout both lungs consisting of consolidation, interstitial markings as well as emphysematous-type changes. Nasal swab for MRSA is negative. Urine for Streptococcus pneumoniae antigen is negative. Viral panel for respiratory viruses by PCR is negative. Arterial blood gases on APRV mode with high pressure of 30, low pressure of zero, auto PEEP of 12, FiO2 of 70% delivering a tidal volume in to low to mid 300s results in a pO2 of 75, pCO2 of 70, pH of 7.27. This morning, the patient was given albumin in response to a somewhat low blood pressure. Hemodynamic monitoring shows a cardiac index of 2.7, stroke volume index of 32, systemic vascular resistance index of 1844. CURRENT MEDICATIONS: Include: 1. Fentanyl infusion. 2. Dexmedetomidine infusion. 3. Cisatracurium infusion. 4. Norepinephrine at 0.03 mcg/kg/minute. 5. Amiodarone currently at 0.5. ASSESSMENT: 1. Acute respiratory distress syndrome. APRV mode has resulted in significant improvement over the past 48 hours, when his situation was rather dismal. Has improved in terms of oxygenation. Ventilatory status is also improved. However, currently there is some concern as his blood pressure is decreasing, requiring colloids, preferring to avoid crystalloids, as well as increasing pressors. Also, rather tachycardic. Concerns about low venous return resulting in decreased cardiac output, resulting in hepatic and renal dysfunction. APRV ventilation may be resulting in a high mean airway pressure resulting in decreased venous return, as well as possibly decreased perfusion, resulting in a worsened ventilation perfusion match. Therefore will try ARDS net low tidal volume protocol, treating the patient for "baby lung" associated with ARDS. In addition, this might mitigate any ventilator-associated lung injury due to volutrauma. The patient switched to PRBC mode with a tidal volume of about 6 mL/kg, resulting in a peak inspiratory pressure of 24-27, plateau about 21-23. PEEP initially was put at 6, as there was some concern about venous return. FiO2 put at 1.0. Blood gases were obtained on those settings with FiO2 of 1.0. PEEP of 6, tidal volume of 500, and rate of 22, resulting in a pO2 of 68, pCO2 of 54, pH 7.35, with a concomitant mixed venous gas showing an O2 saturation of 63%. O2 saturations drifted down a bit and therefore PEEP was increased to 9. Norepi had to be increased to 0.03 mcg/kg/minute. Currently blood pressure on the high side of 144/72. However, any slight decrease in the norepinephrine infusion results in blood pressures running 90s over 50 with a MAP in the mid 60s. 2. Tachycardia. Seems to be a multifocal atrial tachycardia, though difficult to state at these rates. With any interventions, pulse rises from the 110 to 120 range (ventricular rate decreased from the 130, 140 range, to about the 120 range with the vent change to PRVC). However, with any interventions, heart rate rises. Suspect that the patient is somewhat awake as he cannot tolerate propofol without a significant drop in the blood pressure. Now the blood pressure is better. I do not think the dexmedetomidine is particularly appropriate for sedation in a patient receiving nondepolarizing muscle blockade, only being able to tolerate the fentanyl. Therefore will try Ativan. May need a bit of fluid, possibly albumin, but suspect that with the change in the vent settings and hopefully improvement in the venous return, he will be able to tolerate the sedation better. That will help get his ventricular rate under a bit better control, hopefully resulting in a regular rhythm, which hopefully will increase his cardiac output and tissue perfusion. This monitoring suggests some wakefulness with the lowest value being 40, highest value in the mid 70s, especially when he is being attended to. 3. Acute kidney injury. Kidney function was improving. Suspect it is due to a low cardiac output. Hopefully, with the above measures, that will improve. 4. Nutrition. Receiving trophic tube feeding. Tolerating it reasonably well. Will continue at this level until the situation is a bit more lucid. 5. Possible pneumonia. Awaiting results of bronchoscopy. However, Fungitell is negative as is LDH, arguing strongly against Pneumocystis. No evidence for bacterial infection, other than the procalcitonin. Viral PCR is negative to date. Still awaiting some of the other organisms. On broad-spectrum coverage even for fungal disease, at this point. Concern whether the pulmonary problem might be due to rituximab. Early perusal of the literature suggests this indeed may be the prime stain remover in his pulmonary problem. PLAN: 1. Vent settings utilizing PRBC mode. Will start with an FiO2 of 1, PEEP of 9, tidal volume of 500, and a respiratory rate of 22. 2. Start lorazepam infusion to see if any underlying anxiety can be dealt with. 3. Continue pressors for control of blood pressure. If tachycardia continues to be a significant problem, consider utilizing phenylephrine, although hemodynamic monitoring suggests that this might be as much cardiac depressant as opposed to sepsis induced. However, the apparent improvement with vent settings indicate that venous return due to the elevated mean airway pressure may be the culprit or at least adding to the cardiac dysfunction. 4. Continue current antibiotic regimen pending bronchoscopy results. Discussed the current situation and plan with patient's . She is rather facile in dealing with critical illness and seemed to understand a far-ranging discussion of the problem. Time spent so far in critical care, 2 hours to date.
--- NOTE | 2016-12-15 15:43 | ABG ---
DateTimeAnalyzed 15:39:00 -_ pH ____7.371 - 7.350 7.450 pCO2 ___56.6__ -mmHg 35.0 45.0 pO2 ___48.7__ -mmHg 69.0 116 HCO3- ___32.0__ -mmol/L 22.0 26.0 ABE ____6.1__ -mmol/L -2.0 2.0 tHb ___10.0__ -g/dL O2Hb ___78.6__ -% COHb ____1.0__ -% MetHb ____1.1__ -% sO2 ___80.3__ -% 25.0 FIO2 ___80.0__ -% Drawn By rn - Date/Time Notified____ 15:43:00 -_ Notified By jj - Notified Whom dr kendregen - B 762 -mmHg tO2 ___11.1__ -Vol%
--- NOTE | 2016-12-15 15:45 | ABG ---
DateTimeAnalyzed 15:39:00 -_ pH ____7.371 - 7.350 7.450 pCO2 ___56.6__ -mmHg 35.0 45.0 pO2 ___48.7__ -mmHg 69.0 116 HCO3- ___32.0__ -mmol/L 22.0 26.0 ABE ____6.1__ -mmol/L -2.0 2.0 tHb ___10.0__ -g/dL O2Hb ___78.6__ -% COHb ____1.0__ -% MetHb ____1.1__ -% sO2 ___80.3__ -% 25.0 FIO2 ___80.0__ -% PRVC 500 - PEEP ____9.0__ -cmH2O Drawn By rn - Date/Time Notified____ 15:43:00 -_ Spontaneous_RR ___22.0__ -b/min Oxygen Device 1 VENTILATOR - Notified By jj - Notified Whom dr kendregen - B 762 -mmHg tO2 ___11.1__ -Vol% Cristiano test N/A -
--- NOTE | 2016-12-15 16:22 | DRSVH ---
PROCEDURE: X-RAY CHEST ONE VIEW, PORTABLE ([id number]) INDICATIONS: intubated patient, monitor tubes and lines TECHNIQUE: One view of the chest was acquired. COMPARISON: [facility], CR, XR CHEST 1VW (PORTABLE), 12/14/2016, 5:41. [facility], CR, XR CHEST 1VW (PORTABLE), 12/13/2016, 3:15. [facility], CR, XR CHEST 1VW (GINNA BLE), 12/15/2016, 4:39. FINDINGS: Surgical changes and devices: Endotracheal tube is approximately 5.5 cm superior to the daniela. Naso gastric tube redemonstrated tip traversing the GE junction. Lungs and pleura: There are diffuse bilateral interstitial and airspace opacities, unchanged compare d to prior exam. Mediastinum: Mediastinal contours appear normal. Heart size is normal. Bones and chest wall: No suspicious bony lesions. Overlying soft tissues appear unremarkable. IMPRESSION: No significant interval change in pulmonary edema and/or multifocal bilateral pneumonia. ARDS cannot be excluded. Dictated by: Fernando Campbell [facility] Interpreted: Sivan Eaton MD on 12/15/2016 at 16:21 Transcribed by: ASAD on 12/15/2016 at 16:22 Approved by: Sivan Eaton MD, PhD on 12/15/2016 at 16:35
--- NOTE | 2016-12-15 16:35 | ABG ---
DateTimeAnalyzed 16:31:00 -_ pH ____7.361 - 7.350 7.450 pCO2 ___57.9__ -mmHg 35.0 45.0 pO2 ___62.8__ -mmHg 69.0 116 HCO3- ___31.9__ -mmol/L 22.0 26.0 ABE ____5.8__ -mmol/L -2.0 2.0 tHb ___10.1__ -g/dL O2Hb ___87.4__ -% COHb ____1.1__ -% MetHb ____1.3__ -% sO2 ___89.6__ -% 25.0 FIO2 __100.0__ -% PRVC 500 - PEEP ___11.0__ -cmH2O Drawn By JJ - Date/Time Notified____ 16:35:00 -_ Spontaneous_RR ___22.0__ -b/min Oxygen Device 1 VENTILATOR - Notified By JJ - Notified Whom DR KENDREGAN - B 762 -mmHg tO2 ___12.5__ -Vol% Cristiano test N/A -
--- NOTE | 2016-12-15 18:25 | PCM.PNMED ---
Subjective Date of Service December 15, 2016 Subjective Patient is a 61-year-old male with hypertension, rheumatoid arthritis and rheumatoid lung presenting as a transfer from [facility] for worsening shortness of breath admitted with acute hypoxemic respiratory failure and septic shock. Hospital day #5. Vent day #5. He remains sedated and intubated on the ventilator. FiO2 weaned down from 0.75 to 0.70. He continues to be on Precedex 1.4mcg/kg/hr, fentanyl 125mcg/hr and Nimbex 1.4mcg/kg/min. Pressor support continues to be Norepinephrine at 0.03mcg/ kg/hr. Overnight patient was febrile with a temp of 37.8, received dose of acetaminophen with good response. Short runs of SVT were noted with a heart rate in the 180s and he was started on an Amiodarone drip. Exam Vital Signs Vital Sign - Last Date Time Temp Pulse Resp B/P Pulse Ox O2 Delivery O2 Flow Rate FiO2 12/15/16 07:41 118 103/56 96 70 12/15/16 04:00 37.5 25 Mechanical Ventilator Intake and Output 12/14/16 12/14/16 12/15/16 Cumulative From/Thru 15:00 23:00 07:00 12/11/16 19:36 - 12/15/16 05:48 Intake Total 2633 ml 2783 ml 33810 ml Output Total 1900 ml 755 ml 6998 ml Balance 733 ml 2028 ml 18657 ml Intake IV Total 2506 ml 2585 ml 50895 ml Tube Feeding 87 ml 118 ml 205 ml Tube Irrigant 40 ml 80 ml 120 ml Output Urine Total 1900 ml 725 ml 6702 ml Gastric Drainage Total 30 ml 296 ml # Bowel Movements 0 Exam General: Patient is sedated and on the ventilator. Well-developed, well- nourished. HEENT: Normocephalic, atraumatic. External ears without defect. Endotracheal tube present. Cardiovascular: Regular rate and rhythm. No murmurs appreciated. Pulmonary: Decreased breath sounds on right side and left base. Air movement audible on left upper area. Abdomen: Bowel tones present. Soft, nontender, nondistended. Genitourinary: Montgomery present. Extremities: No clubbing, cyanosis, edema, or lymphadenopathy appreciated. Skin: Normal temperature, turgor, and texture; no rash, ulcers, or subcutaneous nodules appreciated. Neurological: Sedated. IVs and Medications Medications Reviewed: Medications were reviewed in detail Lab and Diagnostics Laboratory Tests Test 12/14/16 16:00 12/15/16 02:42 Sodium Level 141mEq/L (134-144) 138mEq/L (134-144) Potassium Level 4.8mEq/L (3.5-5.2) 5.2mEq/L (3.5-5.2) Chloride Level 94mEq/L (97-108) 92mEq/L (97-108) Carbon Dioxide Level 32mmol/L (18-29) 30mmol/L (18-29) Blood Urea Nitrogen 46mg/dL (8-27) 57mg/dL (8-27) Creatinine 1.97mg/dL (0.76-1.27) 2.25mg/dL (0.76-1.27) Estimat Glomerular Filtration Rate 37mL/min (>59) 32mL/min (>59) Glucose Level 142mg/dL (60-99) 222mg/dL (60-99) Calcium Level 7.3mg/dL (8.5-10.1) 7.6mg/dL (8.5-10.1) Phosphorus Level 4.8mg/dL (2.5-4.9) 5.6mg/dL (2.5-4.9) Magnesium Level 2.5mg/dL (1.6-2.6) 2.6mg/dL (1.6-2.6) White Blood Count 13.5th/mm3 (3.8-10.1) Red Blood Count 3.13mil/mm3 (4.40-5.80) Hemoglobin 9.9g/dL (13.8-17.2) Hematocrit 31.8% (41.0-50.0) Mean Corpuscular Volume 101.6fL (81-100) Mean Corpuscular Hemoglobin 31.6pg (27.0-35.0) Mean Corpuscular Hemoglobin Concent 31.1% (32.0-37.0) Red Cell Distribution Width 13.9% (12.3-15.4) Platelet Count 215bil/L (150-400) Neutrophils (%) (Auto) 88.7% (40-74) Lymphocytes (%) (Auto) 4.5% (14-46) Monocytes (%) (Auto) 5.3% (4-12) Eosinophils (%) (Auto) 0% (0-5) Basophils (%) (Auto) 0.1% (0-3) Lactic Acid Level 3.7mmol/L (0.4-2.0) Total Bilirubin 0.2mg/dL (0.0-1.2) Aspartate Amino Transf (AST/SGOT) 604U/L (0-50) Alanine Aminotransferase (ALT/SGPT) 541U/L (0-44) Alkaline Phosphatase 64U/L (25-160) C-Reactive Protein 11.9mg/dL (0.0-0.5) Total Protein 4.4g/dL (6.4-8.4) Albumin 2.4g/dL (3.4-5.0) Procalcitonin 136.80ng/mL (0.00-0.08) Microbiology 12/11/16 Blood Fungal Culture, Received Pending 12/13/16 MRSA (PCR) - Final, Complete 12/12/16 Streptococcus pneumoniae Ag Screen - Final, Complete Result Diagram: 12/15/16 0242 12/15/16 0242 Microbiology Nasal MRSA PCR negative Strep pneumo urine antigen negative Nasopharyngeal viral PCR negative Bronchial washing negative Blood cultures negative to date X-Rays, CTs and MRIs PROCEDURE: X-RAY CHEST ONE VIEW, PORTABLE IMPRESSION: 1. No significant interval change in pulmonary edema and/or multifocal bilateral pneumonia. ARDS cannot be excluded. Dictated by: Fernando Campbell [facility] Interpreted: Mackenzie Yeboah MD on 12/15/2016 at 9: 42 Transcribed by: JORGE on 12/15/2016 at 9:43 Cardiac Echo Impressions 12/12/2016 Echocardiogram Report Interpretation Summary The patient was in a tachycardic rhythm during the exam. The left ventricular ejection fraction is grossly normal. The right ventricle is moderately dilated. Flattened septum is consistent with RV pressure/volume overload. There is mild tricuspid regurgitation. PAP is estimated to be about 50-55mmHg Assessment & Plan 61-year-old male with hypertension, rheumatoid arthritis and rheumatoid lung transferred from [facility] for acute hypoxemic respiratory failure, septic shock with suspected pulmonary source of infection. Hospital day #5. Ventilator day #5. 1. Acute septic shock. Present on admission. Active -Met criteria with WBC, tachycardia, evidence of end organ damage with DANGELO, with suspected respiratory source of infection -Requiring blood pressure support with norepinephrine to maintain MAP>60 -Negative studies: Viral PCR, Blood cultures, Legionella and strep pneumo ur ag -Continue to wean norepinephrine -Follow clinically -Repeat CBC in AM 2. Acute hypoxemic respiratory failure. Present on admission. Active -Patient's oxygen saturation reportedly in the 70s at [facility] with eventual intubation -Underwent bronchoscopy yesterday. Cultures and PCR pending. -Likely secondary to pneumonia or progressive rheumatoid lung disease. ARDS. -Current vent settings: BiLevel/APRV with FiO2 0.70 -Continue to wean vent -Sedated with fentanyl, Precedex. Paralysis with Nimbex due to earlier dyssynchrony with vent -Pulmonary/Critical Care following. Recommendations per Pulm/CC appreciated -ABG in AM 3. Acute liver injury, not present on admission. Active. -Likely secondary to hypoperfusion due to shock, decreased venous return secondary to APRV ventilation -Pulmonary/Critical Care team is following, appreciate recommendations and ventilator management; APRV changed to PRVC. -Continue pressor support -Follow CMP 4. Bilateral pneumonia, acute. Present on admission. Active -Chest x-ray with diffuse widespread bilateral pulmonary interstitial and air space opacities -Negative studies: Fungitell, Cryptococcus ag, Legionella ur ag, Strep pneumo ur ag, MRSA screen, Respiratory viral PCR -Pending studies: Quantiferon -Antibiotics per Infectious Disease - recommendations per ID appreciated. -Repeat procalcitonin in AM 5. Acute kidney injury. Not present on admission. Active -Likely secondary to hypotension from septic shock -Try to maintain output of 0.50ml/kg/hr -Follow with CMP 6. Hyponatremia, acute. Present on admission. Resolved -Likely secondary to insensible losses from respiratory distress 7. Rheumatoid lung, chronic. Present on admission. Active -Patient is followed by [facility] Rheumatology and current regiment includes methylprednisolone, mycophenolate and sulfasalazine -Hold above-mentioned regimen -Continue stress dose steroids with Solu-Medrol 40mg IV daily 8 COPD. Present on admission. Presumed stable -Patient is not on any COPD medications outpatient 9. Chronic hypertension. Present on admission. Presumed stable -Not on any antihypertensive -Currently on Levophed for hypotension -Follow clinically 10. Hyperglycemia. Acuity unknown. Present on admission. Active -Possibly stress-related and chronic steroid use -HbA1c 4.9% -Bedside glucose checks. Correctional insulin Lispro low algorithm Disposition: Patient remains in the ICU, sedated and intubated. Pain Evaluation: Adequate Pain Control GI Prophylaxis: H2 henny VTE Prophylaxis: Sub-Q Heparin (Unfractionated) VTE Mechanical Devices: Intermittant Pneumatic CD Resuscitation Status: CPR: Attempt Resuscitation Attending Statement The patient was seen and examined together with Dr. Trevino on 12/15/2016 and I agree with the history, exam and plan as outlined in the note above. . Shelby Trevino DO December 15, 2016 09:31 Rex Shepherd MD December 16, 2016 07:27
--- NOTE | 2016-12-15 21:54 | ABG ---
DateTimeAnalyzed 21:49:00 -_ pH ____7.387 - 7.350 7.450 pCO2 ___56.5__ -mmHg 35.0 45.0 pO2 ___66.2__ -mmHg 69.0 116 HCO3- ___33.2__ -mmol/L 22.0 26.0 ABE ____7.4__ -mmol/L -2.0 2.0 tHb ____9.9__ -g/dL O2Hb ___89.4__ -% COHb ____1.0__ -% MetHb ____1.4__ -% sO2 ___91.6__ -% 25.0 FIO2 __100.0__ -% PRVC 22 - PEEP ___11.0__ -cmH2O Vt __500.0__ -L Drawn By blf - Date/Time Notified____ 21:53:00 -_ Spontaneous_RR ___22.0__ -b/min Oxygen Device 1 VENTILATOR - Notified By blf - Notified Whom Marbella Fletcher RN - B 762 -mmHg tO2 ___12.5__ -Vol% OrderingPhysicianInitials bak - Cristiano test N/A -
[2016-12-16] VITALS (11 sets, daily range): BP systolic 75–128; BP diastolic 45–94; PULSE 105–151; RESP 22–25; O2SAT 90–97
[2016-12-16] MEDS: Chlorhexidine 0.12% 15 mL Oral Solution MT SCH ×6 (00:03→19:50)
[2016-12-16] MEDS: Heparin 5,000 Unit/mL Inj SUBQ SCH ×3 (00:04→16:14)
[2016-12-16] MEDS: fentaNYL 2,500 mCg/250 mL 2,500 MCG in IV Premix 1 EACH IV PRN ×2 (00:56→19:26)
[2016-12-16] MEDS: PIPERACILLIN TAZO IV SCH ×3 (02:04→17:43)
[2016-12-16] MEDS: DEXTROSE 5% IV SCH ×4 (02:04→17:43)
[2016-12-16] MEDS: Dexmedetomidine 400 mCg/100 mL NS Premix IV SCH ×3 (02:59→08:18)
[2016-12-16 04:13] LABS: EOSINOPHILS % (AUTO) 0 % (0-5); Mean Corpuscular Hemoglobin 31.8 pg (27.0-35.0); Platelet Count 152 bil/L (150-400)
[2016-12-16] MEDS: Albuterol-Ipratropium 3 mL Inhalation Solution NEB SCH (04:22)
[2016-12-16 04:44] LABS: Magnesium 2.3 mg/dL (1.6-2.6); Phosphorus 4.6 mg/dL (2.5-4.9)
[2016-12-16 04:47] LABS: BASOPHILS % (AUTO) 0 % (0-3); MONOCYTES % (AUTO) 8 % (4-12); NEUTROPHILS % (AUTO) 81 % (40-74)
[2016-12-16] MEDS: Cisatracurium Inj 200,000 MCG in 0.9% Sodium Chloride-Pha MIX 100 ML IV SCH ×2 (05:27→22:51)
[2016-12-16] MEDS: Insulin LISPRO Medium-Dose Scale SUBQ SCH ×4 (06:00→16:14)
[2016-12-16] MEDS: Norepineph 8,000 mCg/250 mL NS 8,000 MCG in IV Premix 1 EACH IV SCH ×2 (06:11→22:52)
--- NOTE | 2016-12-16 07:15 | NUR ---
BP / HR / Comfort Levophed off from 2100 to 0600, BP stable with MAP > 65. Just before 0600 patient converted to afib with RVR. MD notified. Blood pressure trended down slightly at this time and Levophed is restarted at 0.02mcg/kg/min. MAP >65 with this. BIS mostly 30s-40s. Patient on Ativan, Fentanyl, and Precedex. No changes to BIS when patient converted to afib RVR. TOF 4/4 but patient is not overbreathing the vent at all so Nimbex rate is not increased. Frequent oral care provided as well as repositioning as patient could tolerate.
[2016-12-16] MEDS ORDERED: Digoxin 0.25 mg/mL 2 mL Inj IV ONE ×2 (07:40→15:25)
[2016-12-16] MEDS: MethylprednisoLONE Sodium Succinate 40 mg/mL Inj IVPUSH SCH (08:16)
[2016-12-16] MEDS: Furosemide 10 mg/mL 4 mL Inj IVPUSH SCH (08:17)
[2016-12-16] MEDS: levoFLOXacin Inj 750 MG in IV Premix 1 EACH IV SCH (08:17)
[2016-12-16] MEDS: Famotidine Inj 50 ML IV SCH (08:17)
[2016-12-16] MEDS: Thiamine Inj 100 MG in Dextrose 5% 50 ML IV SCH (08:30)
--- NOTE | 2016-12-16 08:37 | PROG NOTE ---
[address] [address] PROGRESS NOTE PATIENT: DEAN SANCHEZ : 1955 MR#: [id number] ADMIT: 12/11/2016 JOB ID: [id number] DATE: 12/16/2016 REASON FOR FOLLOW UP: Respiratory failure, bilateral pulmonary infiltrates and shock in an immunosuppressed host. INTERVAL HISTORY: Overnight, the patient has developed atrial fibrillation with rapid ventricular response and hypotension, requiring vasopressor agents. He has continued to require very high inspired oxygen levels to maintain physiologic saturation. His urine output has remained excellent, however. This case was discussed extensively during ICU rounds and at the bedside with the ICU nurse. The patient is intubated, heavily sedated and paralyzed, so no additional history is available from him. PHYSICAL EXAMINATION: Reveals a critically ill gentleman lying supine and intubated in the ICU. He was febrile on December 12, as well as on the , but since then, has been afebrile for two days. Current temp 36.8, pulse is 150 with atrial fibrillation, blood pressure is currently approximately 90 systolic and he is on low doses of norepinephrine. His ventilator setting currently 100% inspired FiO2. Urine output as mentioned has been excellent and minimal respiratory secretions through the endotracheal tube. The patient's eyes are without conjunctivitis or scleral icterus. His nose is normal. Oral gastric tube and oral endotracheal tube are in proper position. No herpetic lesions seen on the lips. Central line appears benign. Lungs with diffuse wet- sounding crackles throughout both lung whelan. Cardiac, very rapid rate, irregular rate and rhythm. Abdomen is soft, and without appreciable tenderness. Montgomery catheter is present. Penis and scrotum appear normal. There is no skin rash or evidence of synovitis. LABORATORIES: Include a white count down to 10,700, with 81% segs. Creatinine 1.92, which is actually improved overnight. Lactic acid 2.1. ALT stable at 564. Procalcitonin was 144 two days ago. Today, it is 68, so it has dropped by half. Serologic studies include negative crypto antigen, negative Fungitell, and negative galactomannan. Urine Legionella and pneumococcal antigens are negative. Aspergillus antibody, and QuantiFERON Gold are still pending. Micro studies include negative bronch wash, multiplex PCR, negative bronch wash culture, negative Pneumocystis DFA screen, negative varicella culture, and negative MRSA screen. A chest x-ray was reviewed and compared to yesterday's. It continues to show bilateral diffuse infiltrates consistent with ARDS, rapidly progressive interstitial lung disease, or atypical type pneumonia. IMPRESSION: This is a difficult case by any standard. This patient is quite immunosuppressed for treatment of his rheumatoid arthritis and associated presumed rheumatoid lung disease. He has developed fulminant bilateral infiltrates with respiratory failure and now some hypotension in association with atrial fibrillation and rapid ventricular response. An extensive workup for infectious etiologies of this process has so far been negative, though we do have profoundly elevated procalcitonins which are now beginning to fall. Otherwise our cultures and smears are negative including studies for traditional bacterial viruses, Pneumocystis and fungi. Yesterday, we had stopped the Bactrim because of negative Pneumocystis studies as well as negative cultures for Stenotrophomonas nocardia and other pathogens that we would need the high-dose Bactrim to treat. I was also concerned that the Bactrim might be causing some of his hepatitis and/or other toxicities, and we were not getting any benefit from that agent. We have continued with the Zosyn and levofloxacin as empiric aggressive dual coverage for more typical bacterial causes of pneumonia, and have also continued with Cresemba, awaiting final fungal cultures as well as results of Aspergillus antibodies and other studies that are pending. RECOMMENDATIONS: 1. Will continue with the Zosyn, levofloxacin and Cresemba at this point. 2. Repeat sputum gram stain and culture will be ordered today. 3. Yesterday, we reviewed and discussed some of the literature about Rituxan-induced lung injury. I am increasingly concerned that the diagnosis here is actually not infectious but rather represents either some exacerbation of rheumatoid lung disease or direct toxicity of her toxin which was started just 10 days or so before the onset of these symptoms. 4. Despite our increasing concerns that this is a noninfectious process, I think it is important we continue with our antibacterial regimen at least for 10 days or so while we continue to closely follow the procalcitonin.
[2016-12-16] MEDS: ISAVUCONAZONIUM SULFATE IV SCH (09:02)
--- NOTE | 2016-12-16 09:10 | NUR ---
NUTRITION FOLLOW UP: ASSESS: 61 YO M transferred with acute respiratory failure requiring intubation. Pt on enteral feedings at 10 ml/hr, appears well tolerated. Residuals this am were ~170ml. Received verbal to start increasing TF. RN is aware. Per morning rounds, bowel tones are minimal. PMHx: RA, rheumatoid lung disease, HTN, chronic back pain, OA, COPD, PNA, neuropathy, ETOH, past hx smoking/THC. DIET: NPO. NUTRITION SUPPORT: Pulmocare @ 10 ml/hr. LABS: Reviewed. Cl 93, CO2 30, Bun 61, Fish Receiver 1.92, Glu 153, lactic acid 2.1, Ca 8.0, AST 437, ALT 564, Alb 2.7 MEDICATIONS: Reviewed. Albumin, Lasix, Insulin, Solu-medrol, Pressor, Nimbex, Precedex, Fentanyl. GI: No BM noted. SKIN: No issues reported. ANTHROPOMETRICS: Current Wt: 130.8 kg, BMI: 38 kg/m2, IBW: 83.64 kg, Admit wt: 116.1 ESTIMATED NEEDS (CLASS I OBESITY, VENT): Calories: 2615-2875kcal/day (20-22kcal/kg) Protein: 125-150g/day (1.5-1.8 g/kg IBW) Fluid: Approx. 3000ml (25ml/kg) NUTRITION DIAGNOSIS: 1) Inadequate oral intake related to inability to consume sufficient energy, as evidenced by NPO/vent status.---PERSISTS. INTERVENTION: 1) Received verbal to advance TF. Recommend advance 10 ml q 6 hr to goal rate of 60 ml/hr. Goal rate enteral feeding 60 ml/hr, providing 1980 kcal, 83 g protein meeting approx. 100% kcal and 66% pro needs. 2) Recommend adding 4 packets prosource/day to provide additional 44g pro to provide 127g pro (100% pro needs) 3) Will continue to monitor for BM MONITOR/EVALUATE: NPO/vent status, TF tolerance/advance, labs, POC, GI/nutrition status. Follow per high nutrition risk guidelines.
[2016-12-16] MEDS ORDERED: Esmolol 2,500 mg/250 mL NS 2,500,000 MCG in IV Premix 1 EACH IV SCH (09:15)
--- NOTE | 2016-12-16 09:22 | DRSVH ---
PROCEDURE: X-RAY CHEST ONE VIEW, PORTABLE ([id number]) INDICATIONS: intubated pt; monitor tubes and lines TECHNIQUE: One view of the chest was acquired. COMPARISON: [facility], CR, XR CHEST 1VW (PORTABLE), 12/15/2016, 4:39. [facility], CR, XR CHEST 1VW (PORTABLE), 12/14/2016, 5:41. [facility], CR, XR CHEST 1VW (GINNA BLE), 12/13/2016, 3:15. [facility], CR, XR CHEST 1VW (PORTABLE), 12/15/2016, 15:48. FINDINGS: Surgical changes and devices: Endotracheal tube is approximately 4.3 cm superior to the daniela. Naso gastric tube redemonstrated tip traversing the GE junction. Lungs and pleura: There are diffuse bilateral interstitial and airspace opacities, unchanged compare d to prior exam. No pneumothorax. Mediastinum: Mediastinal contours appear normal. Heart size is enlarged. Bones and chest wall: No suspicious bony lesions. Overlying soft tissues appear unremarkable. IMPRESSION: 1. No significant interval change from prior exam ,pulmonary edema and/or multifocal bilateral pneumo aga. Dictated by: Fernando Campbell RRA Interpreted: Karthik Arriaga MD on 12/16/2016 at 9:20 Transcribed by: EDWIGE on 12/16/2016 at 9:21 Approved by: Karthik Arriaga M.D. on 12/16/2016 at 10:09
--- NOTE | 2016-12-16 11:02 | PROG NOTE ---
[address] [address] PROGRESS NOTE PATIENT: DEAN SANCHEZ : 1955 MR#: [id number] ADMIT: 12/11/2016 JOB ID: [id number] DATE: 12/16/2016 PULMONARY CRITICAL CARE FOLLOW UP NOTE: PROBLEM LIST: 1. Rheumatoid arthritis with pulmonary fibrosis. 2. Obstructive airways disease. 3. ARDS. 4. Acute kidney injury. 5. Acute hepatopathy. 6. Hypertension requiring pressors. 7. Immunosuppression with probable pneumonia. 8. Paroxysmal atrial fibrillation with rapid ventricular response. SUBJECTIVE: None. OBJECTIVE: Temperature 36.8, T-max being 37.6, pulse currently running about 160, respiratory rate 22 with ventilator set at 22. Blood pressure 93/67 with a norepi at 0.03 mcg/kg/minute. FiO2 100%. PEEP of 11 is 96%. I and O shows 4.9 L in, 2.2 L out. General appearance: Sedated and paralyzed on mechanical ventilation. Eyes: Conjunctivae are pink. Nose and throat could not be examined. Chest: Fairly good breath sounds bilaterally. Left lung relatively clear. There are crackles at the right lower lung, especially laterally. There is a somewhat leathery expiratory pulmonary adventitial sound on the right, less so on the left. With tidal volume of 500, PEEP of 11, peak inspiratory pressure 37, plateau of 32. PEEP is set at 11, measured at 13. Heart: Rapid rate. Markedly irregular rhythm. Abdomen is soft. Rare bowel tones. Extremities: Hands are relatively warm. Feet are quite cold though a fan is blowing on them. Extremities: No pedal edema. SCD in place. LABORATORY DATA: Shows a white count of 10,700, which is decreasing. Differential shows neutrophils 81, no bands, 11 lymphocytes, 8 monocytes. Hemoglobin 9.8. Platelet count 152,000 down from 215,000 yesterday. Sodium 137, potassium 4.7, chloride 93, CO2 is 30, BUN 61, and stable. Creatinine 1.9, down from 2.3. Lactic acid minimally elevated 2.1. Calcium 8 with an albumin of 2.7. AST 437 down from 604. ALT 564, so relatively stable. Alk phos normal at 60. Procalcitonin 68, down from 144 forty-eight hours previously. Urine for Legionella is negative. A galactomannan is negative. Aspergillus antibodies are pending. Urine for strep pneumoniae antigen is negative. Chest x-ray continues to show increased interstitial as well as fluffy infiltrates throughout both lung whelan. ASSESSMENT: 1. Hypertension. The patient requiring relatively low doses of norepinephrine but still has dropped his blood pressure. This has been coincident with a paroxysmal rise in his ventricular rate from about 100-160. Monitor suggests atrial fib mechanism. Amiodarone is running. The question becomes as to whether this new onset hypertension coincident with the rise in heart rate is due to the tachyarrhythmia. Will try to slow the heart rate with esmolol and see how his blood pressure responds. Meantime will continue amiodarone. Lytes are relatively normal. Potassium and magnesium are normal. Hemodynamics were improved with the ventilator change. Renal function is marginally better. Liver is minimally better but certainly not continuing to worsen. With the change in mechanical ventilation, the hemodynamics have improved. Acid-base status has improved presumably due to better perfusion of the organs. However, this has been at the cost of a decrease in his oxygenation with an increase in his alveolar to arterial O2 gradient. However, he is oxygenating reasonably well though marginally so with a pO2 of 64, an FiO2 of 100%, PEEP of 11, pCO2 of 59, pH of 7.37. He can probably decrease his respiratory rate decreasing his minute ventilation. It might help with a mean airway pressure and possibly improve his venous return and hemodynamic picture. Might need fluids possibly utilizing albumin though his albumin level is now 2.7 which should suffice. Diuresing reasonably well with Lasix. However, he remains fluid positive. May need to increase the Lasix, possibly even using an infusion. However, we will see how we do with better control of his ventricular rate. 2. Acute respiratory distress syndrome. No evidence for infection at this point. The procalcitonin is elevated, starting to decrease. Some data that rituximab may explain his ARDS as well as the procalcitonin. 3. Acute kidney injury. Marginally better. 4. Acute hepatopathy. About the same. Maybe marginally better but certainly not worsening. 5. Hemodynamics are worse. Granted that he is in a rapid irregular rate making Vigileo monitoring difficult, though there has been an appreciable drop in his cardiac index. Stroke volume has also decreased. Suspect that much of this may be accountable from a ventricular rate of 160, not only causing definite hemodynamic compromise but also difficulty following trends with the Vigileo. May need to consider cheetah monitoring. 6. Metabolic and respiratory acidemia. Respiratory acidosis is better though still present. Metabolic acidosis has resolved. Has a reasonable pH at this time and we can use this to try to improve pulmonary situation by dropping the minute ventilation. PLAN: 1. Esmolol drip. Will start with a low infusion of 10 mcg/kg/minute. 2. Consider saline or albumin. Would probably prefer albumin and try to continue to diurese the patient, possibly using Lasix infusion. 3. Once the effect of the esmolol is apparent, either being successful or causing too much hypertension, will make ventilator changes so as not to interfere with our evaluation of efficacy of esmolol. TIME: Time spent so far in critical care is two hours.
[2016-12-16] MEDS ORDERED: Amiodarone 360 mg/200 mL D5W Premix IV ONE ×3 (11:35→19:55)
[2016-12-16] MEDS ORDERED: IV Premix 1 EACH IV ONE ×3 (11:35→19:55)
[2016-12-16] MEDS: LORazepam 100 mg/100 mL NS 100 MG in IV Premix 100 EACH IV SCH (11:50)
[2016-12-16] MEDS ORDERED: 0.9% Sodium Chloride 500 ML IV ONE ×2 (12:55→15:25)
[2016-12-16] MEDS: [UNRECOGNIZED DRUG - OTHER] IV SCH ×2 (13:23→22:51)
[2016-12-16] MEDS ORDERED: Albumin 25% 50 GM in IV Premix 1 EACH IV ONE ×2 (13:35→15:25)
[2016-12-16] MEDS ORDERED: DOBUTamine 500 mg/250 D5W 500,000 MCG in IV Premix 1 EACH IV SCH (14:36)
--- NOTE | 2016-12-16 14:48 | NUR ---
Esmolol started for Afib/RVR, rate 140-160s, titrated upwards; Levophed titrated for declining BP. HR has improved very little, 120-140s, BP continues to decline despite IVF bolus' and pressors. MDs aware, updated continuously throughout the day. updated by MDs. Limited ECHO in progress.
--- NOTE | 2016-12-16 14:57 | ABG ---
DateTimeAnalyzed 14:53:00 -_ pH ____7.367 - 7.350 7.450 pCO2 ___53.6__ -mmHg 35.0 45.0 pO2 ___64.9__ -mmHg 69.0 116 HCO3- ___30.0__ -mmol/L 22.0 26.0 ABE ____4.3__ -mmol/L -2.0 2.0 tHb ___10.0__ -g/dL O2Hb ___88.6__ -% COHb ____0.9__ -% MetHb ____1.2__ -% sO2 ___90.5__ -% 25.0 FIO2 __100.0__ -% PRVC 500 - PEEP ___11.0__ -cmH2O Drawn By JJ - Date/Time Notified____ 14:57:00 -_ Spontaneous_RR ___22.0__ -b/min Oxygen Device 1 VENTILATOR - Notified By jj - Notified Whom DR KENDREGAN - B 762 -mmHg tO2 ___12.5__ -Vol%
--- NOTE | 2016-12-16 15:04 | ABG ---
DateTimeAnalyzed 15:00:00 -_ pH ____7.123 - pCO2 ___64.1__ -mmHg pO2 ___39.0__ -mmHg HCO3- ___20.1__ -mmol/L ABE ___-8.4__ -mmol/L tHb ____7.1__ -g/dL O2Hb ___50.2__ -% COHb ____0.9__ -% MetHb ____1.4__ -% sO2 ___51.4__ -% FIO2 __100.0__ -% Drawn By RN - Date/Time Notified____ 15:04:00 -_ Notified By JJ - Notified Whom DR KENDREGAN - B 762 -mmHg tO2 ____5.1__ -Vol% Cristiano test N/A -
--- NOTE | 2016-12-16 15:59 | DRSVH ---
[facility] [address] [place] [address] Echocardiogram Report Name: DEAN SANCHEZ CStudy Date: 12/16/2016 Height: 73 in Hospital Exam Location: [facility] Weight: 256 lb Gender: Male BSA: 2.4 m2 : 1955 Age: 61 yrs BP: 95/58 mmHg Reason For Study: Respiratory Arrest Ordering Physician: Performed By: Marlyn LightBob [facility] Interpretation Summary The ejection fraction is estimated to be 50-55%. Flattened septum is consistent with RV pressure/volume overload. The right ventricle is moderately dilated. Right ventricular systolic function is moderately reduced. There is mild to moderate mitral regurgitation. There is moderate tricuspid regurgitation. The right ventricular systolic pressure is estimated at 47 mmHg assuming a right atrial pressure of 15 mm Hg. The IVC is dilated (diameter is greater than 2.1 cm) and it collapses less than 50% with a sniff. This suggests a high right atrial pressure of 15 mm Hg. Procedure: A two-dimensional transthoracic echocardiogram with color flow and Doppler was performed in limited views only. The study quality was technically adequate. Comparison is made with the echocardiogram of 12-12-16. The patient was in atrial fibrillation with heart rates between 125-135 bpm during the exam. Left Ventricle: The left ventricle is borderline dilated. Left ventricular wall thickness is at the upper limits of normal. The ejection fraction is estimated to be 50-55%. Flattened septum is consistent with RV pressure/volume overload. Diastolic function could not be accurately assessed due to atrial fibrillation. Right Ventricle: The right ventricle is moderately dilated. Right ventricular systolic function is moderately reduced. Atria: The right atrium is moderate to severely dilated. Mitral Valve: There is mild to moderate mitral regurgitation. Tricuspid Valve: The tricuspid valve leaflets are thin and pliable. There is moderate tricuspid regurgitation. The right ventricular systolic pressure is estimated at 47 mmHg assuming a right atrial pressure of 15 mm Hg. Great Vessels: The IVC is dilated (diameter is greater than 2.1 cm) and it collapses less than 50% with a sniff. This suggests a high right atrial pressure of 15 mm Hg. Pericardium/ Pleura There is no pericardial effusion. There is a moderate right-sided pleural effusion. MMode/2D Measurements & Calculations LVIDd IVC diam LV villalpando. diameter/BSA LV sys. diameter/BSA : 5.6 cm : 2.9 cm (cm/m^2): 2.4 (cm/m^2): 1.5 LVIDs : 3.7 cm FS: 34.4 % IVSd : 1.cm LVPWd : 1.1 cm Doppler Measurements & Calculations TR max raymond: 282.0 cm/sec TR max P.8 mmHg Electronically signed by: Tanvir Gan on Reading Physician:12/16/2016 03:59 PM
--- NOTE | 2016-12-16 16:42 | ABG ---
DateTimeAnalyzed 16:37:00 -_ pH ____7.231 - 7.350 7.450 pCO2 ___71.6__ -mmHg 35.0 45.0 pO2 ___69.0__ -mmHg 69.0 116 HCO3- ___29.0__ -mmol/L 22.0 26.0 ABE ____0.6__ -mmol/L -2.0 2.0 tHb ___10.6__ -g/dL O2Hb ___86.6__ -% COHb ____0.5__ -% MetHb ____0.9__ -% sO2 ___87.8__ -% 25.0 FIO2 __100.0__ -% PEEP ___10.0__ -cmH2O Vt __267.0__ -L Drawn By JJ - Date/Time Notified____ 16:42:00 -_ Spontaneous_RR ___25.0__ -b/min Oxygen Device 1 VENTILATOR - Notified By JJ - Notified Whom DR KENDREGAN - B 761 -mmHg tO2 ___12.9__ -Vol% Cristiano test _Positive -
--- NOTE | 2016-12-16 17:31 | NUR ---
Labile BPs and HR throughout the shift, followed by MD closely. Esmolol gtt stopped per MD, HR trending upwards 140-170s/A-fib continued. Little response to IVF bolus' given today. ECHO done. Labs, ABGs noted, vent changes made today. Pressors titrated upwards. Family at bedside, updated by MDs. UOP 900ml/12 hrs. No stool. TFs increased per orders, at 30ml/hr, moderate residuals. Intermittently wave form from right radial arterial line, unable to draw from line. Appears in no distress.
--- NOTE | 2016-12-16 18:05 | PCM.PNMED ---
Subjective Date of Service December 16, 2016 Subjective Patient is a 61-year-old male with hypertension, rheumatoid arthritis and rheumatoid lung presenting as a transfer from [facility] for worsening shortness of breath admitted with acute hypoxemic respiratory failure and septic shock. Hospital day #6. Vent day #6. Intubated and sedated and still requiring pressor support with Norepinephrine at 0.03mcg/kg/hr. Per nursing, patient hemodynamically stable and able to titrate off norepinephrine temporarily until patient converted to afib with RVR and became hypotensive. Exam Vital Signs Vital Sign - Last Date Time Temp Pulse Resp B/P Pulse Ox O2 Delivery O2 Flow Rate FiO2 12/16/16 16:13 67 12/16/16 16:00 37.0 25 75/45 93 Mechanical Ventilator 100 Intake and Output 12/15/16 12/15/16 12/16/16 Cumulative From/Thru 15:00 23:00 07:00 12/11/16 19:36 - 12/16/16 06:33 Intake Total 2213 ml 79778 ml Output Total 1500 ml 8498 ml Balance 713 ml 74601 ml Intake IV Total 2018 ml 49837 ml Tube Feeding 115 ml 320 ml Tube Irrigant 80 ml 200 ml Output Urine Total 1500 ml 8202 ml Gastric Drainage Total 296 ml # Bowel Movements 0 Exam General: Patient is sedated and on the ventilator. Well-developed, well- nourished. HEENT: Normocephalic, atraumatic. External ears without defect. Endotracheal tube present. Cardiovascular: Regular rate and rhythm. No murmurs appreciated. Pulmonary: Decreased breath sounds on right side and left base. Air movement audible on left upper area. Abdomen: Bowel tones present. Soft, nontender, nondistended. Genitourinary: [place] present. Extremities: No clubbing, cyanosis, edema, or lymphadenopathy appreciated. Skin: Normal temperature, turgor, and texture; no rash, ulcers, or subcutaneous nodules appreciated. Neurological: Sedated. IVs and Medications Medications Reviewed: Medications were reviewed in detail Lab and Diagnostics Laboratory Tests Test 12/16/16 04:00 12/16/16 15:30 White Blood Count 10.7th/mm3 (3.8-10.1) Red Blood Count 3.08mil/mm3 (4.40-5.80) Hemoglobin 9.8g/dL (13.8-17.2) Hematocrit 30.8% (41.0-50.0) Mean Corpuscular Volume 100.0fL (81-100) Mean Corpuscular Hemoglobin 31.8pg (27.0-35.0) Mean Corpuscular Hemoglobin Concent 31.8% (32.0-37.0) Red Cell Distribution Width 13.8% (12.3-15.4) Platelet Count 152bil/L (150-400) Neutrophils (%) (Auto) 81% (40-74) Lymphocytes (%) (Auto) 11% (14-46) Monocytes (%) (Auto) 8% (4-12) Eosinophils (%) (Auto) 0% (0-5) Basophils (%) (Auto) 0% (0-3) Sodium Level 137mEq/L (134-144) Potassium Level 4.7mEq/L (3.5-5.2) Chloride Level 93mEq/L (97-108) Carbon Dioxide Level 30mmol/L (18-29) Blood Urea Nitrogen 61mg/dL (8-27) Creatinine 1.92mg/dL (0.76-1.27) Estimat Glomerular Filtration Rate 38mL/min (>59) Glucose Level 153mg/dL (60-99) Lactic Acid Level 2.1mmol/L (0.4-2.0) 2.5mmol/L (0.4-2.0) Calcium Level 8.0mg/dL (8.5-10.1) Phosphorus Level 4.6mg/dL (2.5-4.9) Magnesium Level 2.3mg/dL (1.6-2.6) Total Bilirubin 0.3mg/dL (0.0-1.2) Aspartate Amino Transf (AST/SGOT) 437U/L (0-50) Alanine Aminotransferase (ALT/SGPT) 564U/L (0-44) Alkaline Phosphatase 60U/L (25-160) Total Protein 4.9g/dL (6.4-8.4) Albumin 2.7g/dL (3.4-5.0) Procalcitonin 68.56ng/mL (0.00-0.08) Microbiology 12/11/16 Blood Fungal Culture, Received Pending 12/13/16 MRSA (PCR) - Final, Complete 12/12/16 Streptococcus pneumoniae Ag Screen - Final, Complete Result Diagram: 12/16/16 0400 12/16/16 0400 Microbiology Nasal MRSA PCR negative Urine Legionella and pneumococcal antigens- negative. Cryptococcus antigen negative Fungitell negative Galactomannan negative Nasopharyngeal viral PCR negative Bronchial washing negative Blood cultures negative to date Aspergillus antibody- pending QuantiFERON Gold- pending. Pneumocystis negative Varicella culture negative X-Rays, CTs and MRIs X-RAY CHEST ONE VIEW, PORTABLE IMPRESSION: 1. No significant interval change from prior exam ,pulmonary edema and/or multifocal bilateral pneumonia. Dictated by: Fernando Campbell RRA Interpreted: Karthik Arriaag MD on 12/16/2016 at 9:20 Assessment & Plan 61-year-old male with hypertension, rheumatoid arthritis and rheumatoid lung transferred from [facility] for acute hypoxemic respiratory failure, septic shock with suspected pulmonary source of infection. Hospital day #6. Ventilator day #6. 1. Multifactorial shock. present on admission. Active. -Secondary to hypovolemia due to increased intrathoracic pressure with resulting decreased venous return and tachyarrhythmia with decreased cardiac output. -Initially attributed to sepsis but infectious workup negative to date, making infectious etiology less likely. -Will continue antibiotics, per ID pending repeat blood/sputum cultures. -Follow clinically, continue to wean norepinephrine as tolerated -Pulmonary/Critical Care following. Recommendations appreciated. 2. Acute hypoxemic respiratory failure. Present on admission. Active -Likely multifactorial due to exacerbation of rheumatoid lung disease, ARDS and possibly rituximab induced lung injury. -Suspicion for bilateral pneumonia with significantly elevated procalcitonin but infectious workup negative to date. -Will continue antibiotics, per ID. -Ventilator management, per Pulm/Critical care. -ABG in AM 3. Multifocal atrial tachycardia, not present on admission. Active. -Heart rate remained elevated in the 140s-160s, despite amiodarone drip -Start esmolol drip, per Pulm/Critical care for rate control 4. Rheumatoid arthritis with pulmonary fibrosis, chronic. Present on admission. Active -Patient is followed by [facility] Rheumatology and current regiment includes methylprednisolone, mycophenolate and sulfasalazine -Continue to hold above-mentioned regimen -Continue stress dose steroids with Solu-Medrol 40mg IV daily 5. Acute liver injury, not present on admission. Improving -Likely secondary to hypoperfusion due to decreased cardiac output secondary to tachycardia and decreased venous return secondary to APRV ventilation -Continue current vent settings, per Pulm/critical care. -Follow CMP 5. Acute kidney injury. Not present on admission. Improving -Likely due to hypoperfusion secondary to shock. -Try to maintain urine output of 0.50ml/kg/hr -Follow with CMP 6. Hyponatremia, acute. Present on admission. Resolved -Likely secondary to insensible losses from respiratory distress 7 COPD. Present on admission. Presumed stable -Patient is not on any COPD medications outpatient 8. Chronic hypertension. Present on admission. Presumed stable -Not on any antihypertensive -Currently on Levophed for hypotension -Follow clinically 9. Hyperglycemia. Acuity unknown. Present on admission. Active -Possibly stress-related and chronic steroid use -HbA1c 4.9% -Bedside glucose checks. Correctional insulin Lispro low algorithm Disposition: Patient remains in the ICU, sedated and intubated. Pain Evaluation: Adequate Pain Control GI Prophylaxis: H2 henny VTE Prophylaxis: Sub-Q Heparin (Unfractionated) VTE Mechanical Devices: Intermittant Pneumatic CD Resuscitation Status: CPR: Attempt Resuscitation Attending Statement The patient was seen and examined together with Dr. Trevino on 12/16/2016 and I agree with the history, exam and plan as outlined in the note above. . Shelby Trevino DO December 16, 2016 18:05 eRx Shepherd MD December 18, 2016 19:29 Disposition: Patient remains in the ICU, sedated and intubated. GI Prophylaxis: H2 henny VTE Prophylaxis: Sub-Q Heparin (Unfractionated) VTE Mechanical Devices: Intermittant Pneumatic CD Resuscitation Status: CPR: Attempt Resuscitation Shelby Trevino DO December 16, 2016 18:05 Shelby Trevino DO December 16, 2016 18:05 10. Hyperglycemia. Acuity unknown. Present on admission. Active -Possibly stress-related and chronic steroid use -HbA1c 4.9% -Bedside glucose checks. Correctional insulin Lispro low algorithm Disposition: Patient remains in the ICU, sedated and intubated. GI Prophylaxis: H2 henny VTE Prophylaxis: Sub-Q Heparin (Unfractionated) VTE Mechanical Devices: Intermittant Pneumatic CD Resuscitation Status: CPR: Attempt Resuscitation Shelby Trevino DO December 16, 2016 18:05
[2016-12-16] MEDS ORDERED: Heparin 1,000 Unit/mL 10 mL Inj ONE (20:33)
[2016-12-16] MEDS ORDERED: Heparin 5,000 Units/500 mL NS Premix IV ONE (20:33)
[2016-12-16] MEDS ORDERED: Nitroglycerin 50,000 mcg/250 mL D5W Premix IV ONE (20:33)
[2016-12-16] MEDS ORDERED: Heparin 1,000 Units/500 mL NS Premix IV ONE (20:33)
--- NOTE | 2016-12-16 20:33 | CONS ---
[address] [address] CONSULTATION REPORT PATIENT: DEAN SANCHEZ : 1955 MR#: [id number] ADMIT: 12/11/2016 JOB ID: [id number] DATE OF SERVICE: 12/16/2016 REQUESTED BY: Dr. Aponte. REASON FOR EVALUATION: Atrial fibrillation with uncontrolled ventricular response. HISTORY: The patient is a [id number] male with history of rheumatoid arthritis, as well as rheumatoid lung disease. Pulmonary function tests on November 10, 2016, showed mild restrictive pattern, moderate reactive component as evidenced by a statistically significant improvement in expiratory flow and moderate reduction in diffusion capacity. The patient has been on chronic steroid and mycophenolate. Approximately 10 days prior to hospitalization, he received his 1st infusion with rituximab. The patient then is reported to have developed increasing shortness of breath, which started on December 04. This was progressive to the point that he developed respiratory failure and was admitted to [facility] before transfer to [facility] on December 04, 2016. He then developed acute respiratory distress syndrome and later went into atrial fibrillation with rapid ventricular response on December 15, 2016. He could not tolerate intravenous esmolol due to hypotension, requiring Levophed. He received intravenous amiodarone and IV fluid of 2 L, but the atrial fibrillation rate remained in the 160s to 170 beats per minute while he remained hypotensive. PAST MEDICAL HISTORY: 1. Rheumatoid arthritis. 2. 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 3. History of hypertension. CURRENT MEDICATIONS: 1. Piperacillin. 2. Heparin 5000 units subcu q.8 h. 3. Amiodarone IV drip. 4. Thiamine 100 mg daily. 5. Famotidine. 6. Levofloxacin. 7. Methylprednisolone. 8. Norepinephrine. 9. Cisatracurium. 10. Fentanyl. 11. Dobutamine. 12. Lorazepam. 13. Insulin. ALLERGIES: No known allergies. SOCIAL HISTORY: He has a 45 pack year smoking history. He quit smoking 10 years ago. He was a heavy drinker in the past. FAMILY HISTORY/REVIEW OF SYSTEMS: Unobtainable. PHYSICAL EXAMINATION: Reveals a critically ill man, lying in bed. He is being sedated and on mechanical ventilation. Temperature is 37.0. Blood pressure is 100/55. Heart rate is 156, irregularly irregular. Body weight is 130.8 kg. Head and face have normal configuration. His eyes closed. JVP was difficult to evaluate. Neck supple. Chest: Normal expansion. Bilateral crackles. Heart is tachycardic. No murmur. Abdomen: Soft. Bowel sounds absent. Extremities: No clubbing, cyanosis, or edema. His skin is cool. Neurologic. Unresponsive due to sedation. Blood tests show hemoglobin 9.8, WBC 10.7, platelets 152. Sodium 137, potassium 4.7, chloride 93, bicarb 30, BUN 61, creatinine 1.92, glucose 153. Lactic acid 2.5. AST 437, ALT 564. Albumin 2.7. I personally reviewed his echocardiogram from December 12, 2016, and December 16, 2016. It showed preserved left ventricular systolic function with ejection fraction 50% to 55%. Severely dilated right ventricle with moderately reduced right ventricular systolic function. Mild to moderate mitral regurgitation. Moderate tricuspid regurgitation. Estimated pulmonary artery systolic pressure of 47 mmHg. Dilated inferior vena cava. IMPRESSION: 1. Atrial fibrillation with uncontrolled ventricular response. 2. Severely dilated right ventricle with moderately depressed right ventricular systolic function. 3. Moderate pulmonary hypertension. 4. Acute respiratory distress syndrome. 5. Interstitial lung disease from rheumatoid arthritis. PLAN: We have run out of medical treatment options to control his ventricular response rate since beta henny and calcium channel henny would cause further hypotension. It is unlikely that cardioversion will be successful in the setting of severe lung pathology. I would expect right ventricular hypertrophy from pulmonary hypertension but would not expect the patient to have right ventricular dilation. It is possible that he may have pulmonary embolism on top since his activity has been on the decline and he was not on warfarin prior to hospitalization. This could explain his right ventricular dilatation. The patient's condition would not allow CT angiogram in view of his renal insufficiency. V/Q scan would be nondiagnostic due to ARDS. The only option to save this patient could be therapeutic trial of catheter-directed thrombolysis, understanding that the perioperative procedure risk is quite high. I discussed the plan with the patient's daughter, who would like to wait for her [id number]-[id number]-few. SHER
--- NOTE | 2016-12-16 21:00 | NUR ---
Pt transported to nursery laborer for EKOS insertion. Transported per bed with all lines/gtts. TF stopped for procedure. Pt tolerated procedure well with no difficulties. Pt back in room. EKOS initiated.
[2016-12-16] MEDS ORDERED: ALTEPLASE IV ONE (21:40)
[2016-12-16] MEDS ORDERED: SODIUM CHLORIDE 0.9% IV ONE (21:40)
[2016-12-16] MEDS: Phenylephrine Inj 20,000 MCG in 0.9% Sodium Chloride 248 ML IV SCH (21:50)
--- NOTE | 2016-12-16 22:30 | PROG NOTE ---
[address] [address] PROGRESS NOTE PATIENT: DEAN SANCHEZ : 1955 MR#: [id number] ADMIT: 12/11/2016 JOB ID: [id number] DATE: 12/16/2016 SUBJECTIVE: I discussed the clinical situation with the patient's significant other, Marleni, his daughter and his son. The patient is in critically ill condition. The patient was brought to the cook house laborer and underwent EKOS catheter placement in the left lower lobe branch. He was treated with catheter-directed thrombolysis. This will be treated for 12 hours. He remains in atrial fibrillation with rapid ventricular response and required mechanical ventilation. PLAN: 1. Catheter-directed thrombolysis to the left lung for 12 hours. After that, it will be switched to the right lung. 2. I will change vasopressor from norepinephrine to phenylephrine since norepinephrine is both alpha and beta adrenergic agonist, whereas phenylephrine is alph adrenergic agonist. Phenylephrine will have less effect on tachycardia. 3. He will continue to receive intravenous amiodarone. TIME SPENT: Critical care time is 1 hour. MTDD
--- NOTE | 2016-12-16 23:31 | DI96 ---
[address] [address] PERIPHERAL CATHETERIZATION/INTERVENTION REPORT PATIENT: DEAN SANCHEZ : 1955 MR#: [id number] ADMIT: 12/11/2016 JOB ID: [id number] DATE OF PROCEDURE: 12/16/2016 PATIENT PROFILE: The patient is a 61-year-old male with history of rheumatoid arthritis, rheumatoid lung disease, prior smoking. He presented with respiratory failure, requiring mechanical ventilation and atrial fibrillation with uncontrolled ventricular response. Echocardiogram showed severely dilated right ventricle with moderately depressed systolic function. The clinical picture is suggestive of pulmonary emboli. PROCEDURE: 1. Central venous access from the right groin under ultrasound guidance. 2. EKOS catheter placement in the left lower lobe branch. 3. Catheter-directed thrombolysis initiated. COMPLICATIONS: None. METHOD: Central venous access was obtained from the right groin under 1% lidocaine local anesthesia using a 6-Azerbaijani sheath. This was performed under ultrasound guidance. A 5-Azerbaijani 3DRC catheter together with a J wire was directed into the left lower lobe branch. This was exchanged over a [employer] to an EKOS catheter. The EKOS catheter was secured in the left lower lobe. tPA was initiated at 1 mg/hour for 12 hours. The patient was transferred to the intensive care unit in stable condition. TOTAL CONTRAST USED: None. FLUOROSCOPY TIME: 1.3 minutes. TOTAL RADIATION DOSE: 34 milligray. RESULTS: 1. Successful EKOS catheter placement in the left lower lobe branch. 2. Catheter-directed thrombolysis was initiated at 1 mg/hour. It will be infused for 12 hours. MTDD
--- NOTE | 2016-12-17 00:10 | ABG ---
DateTimeAnalyzed 05:04:00 -_ pH ____7.372 - 7.350 7.450 pCO2 ___59.9__ -mmHg 35.0 45.0 pO2 ___64.5__ -mmHg 69.0 116 HCO3- ___33.9__ -mmol/L 22.0 26.0 ABE ____7.7__ -mmol/L -2.0 2.0 tHb ____9.9__ -g/dL O2Hb ___88.5__ -% COHb ____1.0__ -% MetHb ____1.0__ -% sO2 ___90.3__ -% 25.0 FIO2 __100.0__ -% PRVC 22 - PEEP ___11.0__ -cmH2O Vt __500.0__ -L Drawn By blf - Date/Time Notified____ 05:07:00 -_ Spontaneous_RR ___22.0__ -b/min Oxygen Device 1 VENTILATOR - Notified By blf - Notified Whom Marbella [place] RN - B 762 -mmHg tO2 ___12.4__ -Vol% OrderingPhysicianInitials bak - Cristiano test N/A -
[2016-12-17] MEDS ORDERED: Heparin 10,000 Unit/1,000mL NS 10,000 UNIT in IV Premix 1 EACH IV SCH (00:15)
[2016-12-17 00:30] VITALS: BP 102/52; PULSE 153; RESP 25; O2SAT 91
[2016-12-17] MEDS ORDERED: Heparin 25K Unit/500mL 0.45 NS 25,000 UNIT in IV Premix 1 EACH IV SCH (00:33)
[2016-12-17] MEDS: Chlorhexidine 0.12% 15 mL Oral Solution MT SCH ×3 (00:37→08:06)
[2016-12-17] MEDS: DEXTROSE 5% IV SCH ×3 (02:07→09:21)
[2016-12-17] MEDS: PIPERACILLIN TAZO IV SCH ×2 (02:07→09:21)
[2016-12-17] MEDS: Phenylephrine Inj 20,000 MCG in 0.9% Sodium Chloride 248 ML IV SCH ×2 (02:56→08:02)
[2016-12-17] MEDS: Norepineph 8,000 mCg/250 mL NS 8,000 MCG in IV Premix 1 EACH IV SCH ×2 (03:12→08:05)
[2016-12-17 04:30] VITALS: BP 98/64; PULSE 157; RESP 25; O2SAT 97
[2016-12-17 04:49] VITALS: BP 80/78; O2SAT 94
--- NOTE | 2016-12-17 05:10 | ABG ---
DateTimeAnalyzed 05:06:00 -_ pH ____7.156 - 7.350 7.450 pCO2 ___81.3__ -mmHg 35.0 45.0 pO2 ___70.7__ -mmHg 69.0 116 HCO3- ___27.6__ -mmol/L 22.0 26.0 ABE ___-2.5__ -mmol/L -2.0 2.0 tHb ___11.2__ -g/dL O2Hb ___86.3__ -% COHb ____0.7__ -% MetHb ____1.1__ -% sO2 ___87.9__ -% 25.0 FIO2 __100.0__ -% PEEP ___10.0__ -cmH2O Vt __307.0__ -L Drawn By RB - Spontaneous_RR ___25.0__ -b/min Oxygen Device 1 VENTILATOR - Notified By RB - Notified Whom SEAN D, RN - B 761 -mmHg tO2 ___13.6__ -Vol% Cristiano test N/A -
[2016-12-17 05:20] LABS: EOSINOPHILS % (AUTO) 0 % (0-5); Mean Corpuscular Hemoglobin 31.6 pg (27.0-35.0); Mean Corpuscular Volume 105.2 fL (81-100); Platelet Count 226 bil/L (150-400)
[2016-12-17] MEDS: Insulin LISPRO Medium-Dose Scale SUBQ SCH ×2 (05:21)
[2016-12-17 05:36] LABS: MONOCYTES % (AUTO) 7 % (4-12); NEUTROPHILS % (AUTO) 76 % (40-74)
[2016-12-17 05:37] LABS: BASOPHILS % (AUTO) 0 % (0-3)
[2016-12-17 06:00] LABS: Magnesium 2.6 mg/dL (1.6-2.6); Phosphorus 8.8 mg/dL (2.5-4.9)
--- NOTE | 2016-12-17 06:01 | NUR ---
Pt's vent settings remain the same with small improvement in sats. Sats are 93% at this time. Pt was taken to flower shop laborer/designer earlier in shift and EKOS was initiated. EKOS running without difficulty, should complete at 1000 this am. Heparin gtt started with a fixed rate of 1000 units/hr. Pt remains hypotensive with increase in levophed to 0.25 mcg. HR continues in a-fib with RVR, rate ranges from 140-160's. Pt does not tolerate any activity, slight movement or repositioning causes pt to desat with long periods of recovery. BIS running higher in the 50's to low 60's. Increased ativan to 2 mg. Will continue to closely monitor pt. Supportive family at bedside.
[2016-12-17 07:36] VITALS: BP 83/69; O2SAT 97
[2016-12-17 08:00] VITALS: BP 113/85; PULSE 148; RESP 25; O2SAT 96
[2016-12-17] MEDS: MethylprednisoLONE Sodium Succinate 40 mg/mL Inj IVPUSH SCH (08:04)
[2016-12-17] MEDS: Famotidine Inj 50 ML IV SCH (08:05)
[2016-12-17] MEDS: levoFLOXacin Inj 750 MG in IV Premix 1 EACH IV SCH (08:06)
--- NOTE | 2016-12-17 08:50 | PROG NOTE ---
[address] [address] PROGRESS NOTE PATIENT: DEAN SANCHEZ : 1955 MR#: [id number] ADMIT: 12/11/2016 JOB ID: [id number] DATE: 12/17/2016 INFECTIOUS DISEASE FOLLOW UP NOTE: REASON FOR FOLLOW UP: Respiratory failure with bilateral infiltrates, shock and multiorgan failure. INTERVAL HISTORY: Recall that this is the 61-year-old gentleman with underlying rheumatoid lung disease who is admitted with respiratory failure and also has shock requiring vasopressor agents and worsening multi-system organ failure. Our presumptive diagnosis coming into this was that he might have an infection on top of his severe underlying rheumatoid lung disease, but our thoughts over the past couple days have moved towards a possible adverse inflammatory lung reaction to Rituxan, which he was given not long prior to admission for his severe rheumatoid lung. Note that the patient is profoundly immunosuppressed with steroids, mycophenolate and Rituxan. The cardiology team is now involved in his care and they are concerned about the degree of right heart strain he has and whether or not he might have a pulmonary embolism. This is virtually impossible to prove given his multiple underlying issues and the difficulties that poses for diagnostic studies so he is being treated with direct infusion of thrombolytic agents at this point, for possible, but as of yet, unproven pulmonary embolism. Overnight, the patient has continued to deteriorate. He has rapid AFib as well as shock requiring increasing vasopressor agents. He remains on 100% FiO2. This case discussed in detail with the ICU team at the bedside this morning. Note that the patient remains heavily sedated, intubated and paralyzed so there is no additional history available from him, of course. Temp 36.9, and he has been afebrile since the . Pulse is about 150 and irregular. Respiratory rate is ventilator dependent, of course, since he is paralyzed. Blood pressure is currently 113/85, but he is on significant doses of vasopressor agents. His FiO2 is currently 100%. The patient's eyes without scleral icterus or conjunctivitis. Oral endotracheal tube, oral gastric tube in good position. Central lines appear free of infection. Lungs with coarse rales bilaterally, right more than left as before. Cardiac tones rapid with irregular rate and rhythm. No significant murmur but his pulse is very fast. Abdomen soft and nontender. Penis and scrotum appear normal. Montgomery catheter in place. No skin rash. LABORATORIES: Include a white count which has jumped to 26,000 with a huge left shift including bands, metamyelocytes, myelocytes and nucleated red cells. Creatinine 2.66 which is considerably worse than yesterday's levels of 1.92. Lactic acid 2.1 which is relatively stable. AST and ALT have made a big jump. AST is to 4700, ALT at 2200. Procalcitonin had been as high as 144, it is now down to 54. CCP has come back at 229, which is approximately 12 times the upper limit of normal despite all the therapy he has been receiving for rheumatoid arthritis. Cryptococcal antigen is negative. Fungitell negative, galactomannan negative. QuantiFERON Gold not surprisingly indeterminate in this profoundly immunosuppressed host. Respiratory viral PCR panel negative. MRSA screen negative. Blood cultures remain negative. IMAGING: Shows continued bilateral infiltrates, perhaps right greater than left. These are interstitial type infiltrates. IMPRESSION: This patient remains hyper critically ill with evidence now of renal and hepatic failure piled upon his ongoing profound respiratory insufficiency and right heart strain. He is being treated empirically for pulmonary embolism and also receiving aggressive therapy directed at his underlying rheumatoid lung disease. Whether or not he has any infection remains unclear, and I suspect that he does not, but will continue to provide broad-spectrum antibiotics given the critical nature of his illness and our inability to completely exclude the possibility of infection. RECOMMENDATIONS: 1. We will continue with levo and Zosyn at this point. 2. Will continue with Cresemba as empiric antifungal therapy given his profound immunosuppression. 3. Should the patient improve, additional diagnostic studies such as a BAL might be indicated but obviously the patient's level of wellness is far beyond that where a BAL or lung biopsy would be plausible. 4. This case discussed with the bedside nurse as well as with Dr. Aponte and his ICU team.
[2016-12-17] MEDS: ISAVUCONAZONIUM SULFATE IV SCH (09:21)
[2016-12-17] MEDS: Thiamine Inj 100 MG in Dextrose 5% 50 ML IV SCH (09:21)
--- NOTE | 2016-12-17 09:58 | DRSVH ---
PROCEDURE: X-RAY CHEST ONE VIEW, PORTABLE ([id number]) INDICATIONS: intubated pt; monitor tubes and lines TECHNIQUE: One view of the chest was acquired. COMPARISON: [facility], CR, XR CHEST 1VW (PORTABLE), 12/15/2016, 15:48. [facility], CR, XR CHEST 1VW (PORTABLE), 12/16/2016, 5:06. FINDINGS: Surgical changes and devices: Endotracheal tube is approximately 6.1 cm superior to the daniela. Naso gastric tube redemonstrated tip traversing the GE junction. Left subclavian central line tip project ed over the mid superior vena cava. Lungs and pleura: There are diffuse bilateral interstitial and airspace opacities, with no significa nt change compared to prior exam. No pneumothorax. Mediastinum: Mediastinal contours appear normal. Heart size is enlarged. Bones and chest wall: No suspicious bony lesions. Overlying soft tissues appear unremarkable. IMPRESSION: No significant change from prior examination suggesting pulmonary edema and/or bilateral multifocal pneumonia. Dictated by: Fernando Campbell [facility] Interpreted: Inderjit Barrios MD on 12/17/2016 at 9:55 Transcribed by: SELENE on 12/17/2016 at 9:58 Approved by: Inderjit Barrios M.D. on 12/17/2016 at 11:20
[2016-12-17 10:47] LABS: INR 1.47 ratio
--- NOTE | 2016-12-17 11:40 | NUR ---
spiritual care: nurse/family emotional support to family as they anticipated, then dealt with reality of his . family supporting one another, provided resources, handprint and parliamentary counsel.
--- NOTE | 2016-12-17 13:17 | NUR ---
Labs, ABGs reviewed/noted, worsening. Family/MD conference regarding prognosis and comfort. Home Furnishings Sales Representative support provided. BP, HR remain variable and unstable; continued A-fib 130-170s. Skin dusky, cold, moist (no change) Analgesics and sedation increased per MD this morning; family progressing toward withdrawal of vent support. EKOS discontinued per Dr. Wright. Family updated by Dr. Wright as well as CCU team. Tube feedings discontinued, residuals moderate, no bowel tones heard. Scant UOP via juan cath. No pulse, asystole at 1033. Family at bedside.
--- NOTE | 2016-12-17 13:52 | PCM.DC.MEX ---
Discharge Summary Date of Service December 17, 2016 Dates of Hospitalization Date of Hospital Admission Dec 11, 2016 at 13:29 Date of Expiration: December 17, 2016 Time of Expiration: 10:33 Providers: Admitting Physician: Rex Shepherd MD Primary Care Physician: Other,Physician Attending Physician: Rex Shepherd MD Diagnosis at Time of 1. Multi-system organ failure 2. Acute hypoxemic respiratory failure. 3. Atrial fibrillation with uncontrolled ventricular response 4. Rheumatoid interstitial lung disease 5. Acute liver injury 5. Acute renal failure. 6. Possible pulmonary embolism 7. Hyponatremia, acute. 8. COPD, chronic. 9. Chronic hypertension. 10.Hyperglycemia. Procedures XRay, CTs & MRIs X-RAY CHEST ONE VIEW, PORTABLE IMPRESSION: No significant change from prior examination suggesting pulmonary edema and/or bilateral multifocal pneumonia. Dictated by: Fernando STREET Interpreted: Inderjit Barrios MD on 12/17/2016 at 9: 55 X-RAY CHEST ONE VIEW, PORTABLE IMPRESSION: 1. No significant interval change from prior exam ,pulmonary edema and/or multifocal bilateral pneumonia. Dictated by: Fernando STREET Interpreted: Karthik Arriaga MD on 12/16/2016 at 9:20 Cardiac Echo Impression Echocardiogram Report 12/16/2016 Interpretation Summary The ejection fraction is estimated to be 50-55%. Flattened septum is consistent with RV pressure/volume overload. The right ventricle is moderately dilated. Right ventricular systolic function is moderately reduced. There is mild to moderate mitral regurgitation. There is moderate tricuspid regurgitation. The right ventricular systolic pressure is estimated at 47 mmHg assuming a right atrial pressure of 15 mm Hg. The IVC is dilated (diameter is greater than 2.1 cm) and it collapses less than 50% with a sniff. This suggests a high right atrial pressure of 15 mmHg. Reading Physician: Tanvir Gan on 12/16/2016 03:59 PM Brief History Per admission history and physical on 12/11/2016. Nate Dumont DO Patient is a 61-year-old male with hypertension, rheumatoid arthritis and rheumatoid lung presenting as a transfer from [facility] for worsening shortness of breath. Prior to arrival the patient was sedated and intubated. As a result a history is not obtainable but based on medical records from [facility] and his significant other the patient has had a recent history of difficulty breathing related to his rheumatoid lung. Approximately 4 days prior to his admission at [facility], the patient experienced a decline in his breathing with minimal activity, particularly walking to-and-fro the restroom. Patient was reportedly unable to recover after five minutes rest, which prompted him to visit [facility] on 12/10/2016. There the patient reported fatigue and sweats, but denied any fever or chills. Chest x-ray at [facility] showed bilateral infiltrates suggestive of pneumonia and the patient was started on Zosyn and levofloxacin. The patient's breathing continued to decline prompting intubation and placement on ventilator. Patient is on chronic steroids and mycophenolate for his rheumatoid disease. He was reportedly diagnosed in August of this year and since that time has had difficulties with breathing. Patient reportedly received his first infusion of rituximab via [facility] Rheumatology about 10 days ago. Hospital Course Mr. Dominguez is a 61-year-old male with rheumatoid arthritis, pulmonary fibrosis, COPD and recent changes to his DMARD and immunosuppressive regimen for increasing shortness of breath who was transferred from [facility] for acute hypoxemic respiratory failure and shock. 1. Multi-system organ failure with shock, acute. present on admission. -Initially shock attributed to sepsis as patient met sepsis criteria on admission with: WBC, tachycardia, evidence of end organ damage with DANGELO and suspected pulmonary source for infection in an immunosuppressed patient. -Infectious workup negative to date, making infectious etiology less likely. However, white blood cell count back up to 25.9 on 12/17/16 concerning for occult infection. -Shock multifactorial, likely secondary to hypovolemia due to increased intrathoracic pressure with resulting decreased venous return and tachyarrhythmia with decreased cardiac output. -Attempted to wean norepinephrine as tolerated but patient remained hemodynamically unstable, requiring pressors -Hemodynamics further complicated by Afib with uncontrolled ventricular response on hospital day #5. -Cardiology was consulted and upon review of recent Echo recommended a therapeutic trial of catheter-directed thrombolysis for possible pulmonary embolism. -Patient was taken to the poultry farm laborer and underwent EKOS catheter placement in the left lower lobe-branch. At that time norepinephrine changed to phenylephrine. -He was continued on the amiodarone drip overnight but remained in Afib with an uncontrollable rate. -Hemodynamics failed to improve with EKOS and the following morning HR and BP remained variable with worsening of renal and liver failure noted. -Analgesics and sedation were increased as the Primary team and Critical care team met with family to discuss compassionate extubation. -EKOS was discontinued per Cardiology at that point and Tread Tuber Machine Operator also met with family. -Patient progressively unstable and found to be in asystole at 1033 prior to decision for compassionate extubation. 2. Acute hypoxemic respiratory failure. Present on admission. -Likely multifactorial due to exacerbation of rheumatoid lung disease, ARDS and possibly rituximab induced lung injury. -Suspicion for bilateral pneumonia with significantly elevated procalcitonin but infectious workup negative -Patient with profound gas exchange derangement shortly after admission which initially responded well to BiLevel/APRV. -Unfortunately, this high level of support lead to severe impairment in ventilation and marked hypercapnia. -Patient continued to require high dose sedation with fentanyl and dexmedetomidine as well as low dose cisatracurium to maintain comfort and vent synchrony. -Due to poor ventilation and increased intrathoracic pressure with decreased venous return and subsequent hypoperfusion; resumed PRVC with ventilator management per Pulmonary/Critical Care -Antibiotics, per ID. Cresemba, Zosyn, Bactrim and levofloxacin -Followed daily ABGs, procalcitonin, CBC 3. Atrial fibrillation with uncontrolled ventricular response, not present on admission. -Afib w/RVR noted on hospital day #4, amiodarone drip initiated for rate control. Heart rate remained elevated in the 140s-160s and tachycardia thought to be contributing to shock. -Severely dilated right ventricle with moderately depressed right ventricular systolic function. -Amiodarone discontinued and patient started on esmolol drip. Unfortunately this was stopped due to increasing hypotension and amiodarone drip restarted with no improvement in rate. -Cardiology was consulted and patient taken to the poultry farm laborer as above. 4. Rheumatoid arthritis with pulmonary fibrosis, present on admission. -Patient is followed by [facility] Rheumatology and current regiment includes methylprednisolone, mycophenolate and sulfasalazine -Above-mentioned regimen was held and patient continued on stress dose steroids with Solu-Medrol 40mg IV daily 5. Acute liver injury, not present on admission. -Likely secondary to hypoperfusion due to decreased cardiac output secondary to tachycardia and decreased venous return secondary to APRV ventilation -Vent settings, per Pulm/critical care. -Followed CMP with progressive decline in hepatic function noted. Liver enzymes severely elevated. AST 4750 and ALT 2202 5. Acute renal failure, not present on admission. -Likely due to hypoperfusion secondary to shock. -Followed with CMP and renal functioned continued to decline 6. Hyponatremia, acute. Present on admission. -Likely secondary to insensible losses from respiratory distress 7 COPD. Present on admission. Presumed stable -Patient was not on any COPD medications outpatient 8. Chronic hypertension. Present on admission. Presumed stable -Hypotensive throughout hospitalization, requiring pressor support 9. Hyperglycemia. Acuity unknown. Present on admission. -Possibly stress-related and chronic steroid use -HbA1c 4.9% -Glucose monitored bedside and patient received low-dose correctional insulin Lispro Exam Test 12/11/16 14:41 12/11/16 17:40 12/12/16 04:20 12/12/16 09:20 Cryptococcus Antigen Negative (Negative) Fungal Antibodies <31pg/mL (<80) Aspergillus galactomannan Antigen 0.07Index (0.00-0.49) TB Test (QFT) Gold In Tube Indeterminate (Negative) TB Test (QFT) Incubation Comment (.) TB Test (QFT) Mitogen 0.04IU/mL (.) TB Test (QFT) Antigen 0.03IU/mL (.) TB Test (QFT) Antigen Minus Nil <0.00IU/mL (.) TB Test (QFT) TB - Nil 0.04IU/mL (.) TB Test (QFT) Positive Criteria Comment (.) TB Test (QFT) Interpretation Comment (.) Body Fluid Source Bronchial washing Body Fluid Color Bloody (Clear) Body Fluid Appearance Hazy Body Fluid WBC 58/mm3 Body Fluid RBC 4950/mm3 Body Fluid Polynuclear WBCs 52% Body Fluid Lymphocytes 2% Body Fluid Monocytes 9% Body Fluid Eosinophils 0% Body Fluid Basophils 0% Hemoglobin A1c 4.9% (4.8-5.6) Urine Legionella pneumophilia Ag Negative (Negative) Test 12/12/16 10:00 12/13/16 17:02 12/14/16 03:42 12/15/16 02:42 Hold Churchill Top Tube Received (Received) Ionized Calcium (Calculated) 4.15mg/dL (3.5-5.2) Anti-Cyclic Citrullinated Peptide 229units (0-19) Ionized Calcium 1.07mmol/L (1.17-1.32) C-Reactive Protein 11.9mg/dL (0.0-0.5) Test 12/17/16 05:10 12/17/16 10:20 White Blood Count 25.9th/mm3 (3.8-10.1) Red Blood Count 3.48mil/mm3 (4.40-5.80) Hemoglobin 11.0g/dL (13.8-17.2) Hematocrit 36.6% (41.0-50.0) Mean Corpuscular Volume 105.2fL (81-100) Mean Corpuscular Hemoglobin 31.6pg (27.0-35.0) Mean Corpuscular Hemoglobin Concent 30.1% (32.0-37.0) Red Cell Distribution Width 14.4% (12.3-15.4) Platelet Count 226bil/L (150-400) Neutrophils (%) (Auto) 76% (40-74) Lymphocytes (%) (Auto) 8% (14-46) Monocytes (%) (Auto) 7% (4-12) Eosinophils (%) (Auto) 0% (0-5) Basophils (%) (Auto) 0% (0-3) Band Neutrophils % 6% (1-5) Metamyelocytes % 2% (0-0) Myelocytes % 1% (0-0) Nucleated Red Blood Cells 3/100 WBC (0-24) Sodium Level 139mEq/L (134-144) Potassium Level 6.4mEq/L (3.5-5.2) Chloride Level 96mEq/L (97-108) Carbon Dioxide Level 27mmol/L (18-29) Blood Urea Nitrogen 77mg/dL (8-27) Creatinine 2.66mg/dL (0.76-1.27) Estimat Glomerular Filtration Rate 26mL/min (>59) Glucose Level 131mg/dL (60-99) Lactic Acid Level 2.1mmol/L (0.4-2.0) Calcium Level 7.8mg/dL (8.5-10.1) Phosphorus Level 8.8mg/dL (2.5-4.9) Magnesium Level 2.6mg/dL (1.6-2.6) Total Bilirubin 0.5mg/dL (0.0-1.2) Aspartate Amino Transf (AST/SGOT) 4750U/L (0-50) Alanine Aminotransferase (ALT/SGPT) 2202U/L (0-44) Alkaline Phosphatase 89U/L (25-160) Total Protein 5.5g/dL (6.4-8.4) Albumin 3.3g/dL (3.4-5.0) Procalcitonin 54.35ng/mL (0.00-0.08) Prothrombin Time 15.8sec (8.1-12.5) Prothromb Time International Ratio 1.47ratio Microbiology Results Nasal MRSA PCR negative Urine Legionella and pneumococcal antigens- negative. Cryptococcus antigen negative Fungitell negative Galactomannan negative Nasopharyngeal viral PCR negative Bronchial washing negative Blood cultures negative to date Aspergillus antibody- pending QuantiFERON Gold- pending. Pneumocystis negative Varicella culture negative Attending Statement The patient was seen and examined together with Dr. Trevino on 12/17/2016 and I agree with the history, exam and plan as outlined in the note above. . copies to: Jonathan Gomez MD, Courtney M DO December 17, 2016 13:52 Rex Shepherd MD December 18, 2016 19:30 Prothromb Time International Ratio 1.47ratio Microbiology Results Nasal MRSA PCR negative Urine Legionella and pneumococcal antigens- negative. Cryptococcus antigen negative Fungitell negative Galactomannan negative Nasopharyngeal viral PCR negative Bronchial washing negative Blood cultures negative to date Aspergillus antibody- pending QuantiFERON Gold- pending. Pneumocystis negative Varicella culture negative Shelby Trevino DO December 17, 2016 13:52 Microbiology Results Nasal MRSA PCR negative Urine Legionella and pneumococcal antigens- negative. Cryptococcus antigen negative Fungitell negative Galactomannan negative Nasopharyngeal viral PCR negative Bronchial washing negative Blood cultures negative to date Aspergillus antibody- pending QuantiFERON Gold- pending. Pneumocystis negative Varicella culture negative Shelby Trevino DO December 17, 2016 13:52 Pneumocystis negative Varicella culture negative Shelby Trevino DO December 17, 2016 13:52
== END 2016-12-17 10:33 | disposition expired | DRG 710 ==
LOC: CCU 13:29
PROVIDERS: ADMIT Internal Medicine; ATTEND Internal Medicine
PROC: 03HY32Z Insertion of Monitoring Device into Upper Artery, Percutaneous Approach (ICD-10-PCS; 2016-12-11)
PROC: 0B9B8ZX Drainage of Left Lower Lobe Bronchus, Via Natural or Artificial Opening Endoscopic, Diagnostic (ICD-10-PCS; 2016-12-11)
PROC: 4A033R1 Measurement of Arterial Saturation, Peripheral, Percutaneous Approach (ICD-10-PCS; 2016-12-11)
PROC: 5A1955Z Respiratory Ventilation, Greater than 96 Consecutive Hours (ICD-10-PCS; principal; 2016-12-11 16:30)
PROC: 3E06317 Introduction of Other Thrombolytic into Central Artery, Percutaneous Approach (ICD-10-PCS; 2016-12-16)
DX: A41.9 Sepsis, unspecified organism (principal); J96.01 Acute respiratory failure with hypoxia; I26.99 Other pulmonary embolism without acute cor pulmonale; R65.21 Severe sepsis with septic shock; K72.00 Acute and subacute hepatic failure without coma; J18.9 Pneumonia, unspecified organism; I48.91 Unspecified atrial fibrillation; E87.1 Hypo-osmolality and hyponatremia; J44.0 Chronic obstructive pulmonary disease with (acute) lower respiratory infection; N17.9 Acute kidney failure, unspecified; M05.10 Rheumatoid lung disease with rheumatoid arthritis of unspecified site; I10 Essential (primary) hypertension; R73.9 Hyperglycemia, unspecified